=== PATIENT | female | born 1945 | race Caucasian/White ===

== ENCOUNTER 2016-11-25 09:03 | Emergency (ER) | payer MEDICARE, MEDICAID ==
[~2016-11-25] VITALS: Ht 152.4 cm; Wt 54.4 kg
[~2016-11-25 09:03] MED LIST: ALBU17AE23; ALBU8.5H2 IH; ALPR.25T PO; ALPR0.25 PO; ALPR0.254 PO; ATOR10TA66 PO; AZIT250T5 PO; BUPR150T6 PO; CEPH-507 PO; CEPH500C PO; CIPR-225 PO; CLIN150C17 PO; CLOP75TA28 PO; DCS100C PO; DOXY100C2 PO; FENO134C2 PO; FLC100T1 PO; GBPN300C PO; GLIM4TAB PO; GLIP10TA13 PO; HUM100VI; HYDR12.56 PO; HYDR1TAB PO; INSASP10V SQ; INSU100I14 SQ; INSU100I16 SQ; INSU100V13; INSU100V3 IJ; LEVO500T69 PO; LEVO750T24 PO; LISI-556 PO; LISI10TA PO; LISI5TAB PO; LOPE-134 PO; MELO7.5T PO; METF500T8 PO; METR500T PO; MULT-1029 PO; MULT-608 PO; NAPR220C11 PO; NF-ESOM40C PO; NITR-65 PO; OMEP20CA12 PO; OXYC1TAB87 PO; PNT40TEC PO; PROM25SU10 PR; RANI150T90 PO; RANI25TA PO; RNT150T PO; RT-ALBUINH IH; SIMV20TA3 PO; TIOT18CA IH; TRAM50TA2 PO; TRM50T PO; VANCOMYCIN IV; VARE1TAB19 PO; [UNRECOGNIZED DRUG - CODE] IV; [UNRECOGNIZED DRUG - OTHER]; novalog SC
[2016-11-25 09:31] LABS: BASOPHILS # (AUTO) 0.1 10^3/uL (0.0-0.1); BASOPHILS % (AUTO) 1 % (0-10); EOSINOPHILS # (AUTO) 0.4 10^3/uL (0.0-0.3); EOSINOPHILS % (AUTO) 3 % (0-10); LYMPHOCYTES # (AUTO) 4.7 X 10^3 (1.0-4.0); LYMPHOCYTES % (AUTO) 36 % (12-44); MEAN CORPUSCULAR HEMOGLOBIN 31 PG (25-34); MEAN CORPUSCULAR HGB CONC 35 G/DL (32-36); MEAN CORPUSCULAR VOLUME 90 FL (80-99); MEAN PLATELET VOLUME 10.6 FL (7.4-10.4); MONOCYTES # (AUTO) 0.9 X 10^3 (0.0-1.0); MONOCYTES % (AUTO) 7 % (0-12); NEUTROPHILS # (AUTO) 6.9 X 10^3 (1.8-7.8); NEUTROPHILS % (AUTO) 53 % (42-75); PLATELET COUNT 188 10^3/uL (130-400); RED BLOOD COUNT 4.56 10^6/uL (4.35-5.85); RED CELL DISTRIBUTION WIDTH 14.3 % (10.0-14.5); WHITE BLOOD COUNT 12.9 10^3/uL (4.3-11.0)
[2016-11-25 09:41] LABS: BILIRUBIN,URINE NEGATIVE (NEGATIVE); KETONES,URINE 1+ (NEGATIVE); LEUKOCYTE ESTERASE ,URINE NEGATIVE (NEGATIVE); NITRITE,URINE NEGATIVE (NEGATIVE); PH,URINE 6 (5-9); PROTEIN,URINE 3+ (NEGATIVE); UROBILINOGEN,URINE NORMAL (NORMAL)
[2016-11-25 09:42] LABS: ALANINE AMINOTRANSFERASE 17 U/L (0-55); ALBUMIN 3.7 GM/DL (3.2-4.5); ANION GAP 10 MMOL/L (5-14); ASPARTATE AMINO TRANSFERASE 19 U/L (5-34); BILIRUBIN,TOTAL 0.3 MG/DL (0.1-1.0); BLOOD UREA NITROGEN 14 MG/DL (7-18); BUN/CREATININE RATIO 17; CALCIUM 9.6 MG/DL (8.5-10.1); CARBON DIOXIDE 23 MMOL/L (21-32); CHLORIDE 105 MMOL/L (98-107); CREATININE SERUM 0.81 MG/DL (0.60-1.30); GFR ESTIMATED > 60; GLUCOSE 279 MG/DL (70-105); POTASSIUM 3.3 MMOL/L (3.6-5.0); SODIUM 138 MMOL/L (135-145); TOTAL PROTEIN 6.9 GM/DL (6.4-8.2)
--- NOTE | 2016-11-25 10:37 | ED Abdominal Pain ---
General Chief Complaint: Abdominal/GI Problems Stated Complaint: LOW BLOOD SUGAR Nursing Triage Note: Pt to ED room 9 via [facility]. EMS reports being called to pt's home for pt lethargic and c/o abd pain and vomiting. Pt's family reports they thought pt's blood sugar may have been low so they gave pt sugar tablet. FSBS for EMS was 244. Pt reports midline abd pain and vomiting that started approx 1 hour ago. Sepsis Screen: No Definite Risk Source of Information: Patient Exam Limitations: No Limitations History of Present Illness Time Seen By Provider: 10:37 Initial Comments To ER per EMS from home with reports of midline abdominal pain, vomiting, diarrhea. This began this morning upon awakening. No fevers or chills and at this time she feels back to normal. She has not eaten anything unusual lately. Timing/Duration: 4-6 Hours Severity/Quality: Moderate Radiation: No Radiation Activities at Onset: None Associated Symptoms: Nausea/Vomiting Allergies and Home Medications Allergies Coded Allergies: Iodinated Contrast- Oral and IV Dye (Verified Allergy, Intermediate, SWELLING HANDS AND FEET, 01/06/16) Penicillins (Verified Allergy, Mild, 01/06/16) codeine (Verified Allergy, Mild, 01/06/16) ibuprofen (Verified Allergy, Mild, 01/06/16) propoxyphene (Verified Allergy, Mild, 01/06/16) Sulfa (Sulfonamide Antibiotics) (Unverified Allergy, Unknown, 11/25/16) hydrocodone (Verified Adverse Reaction, Intermediate, NAUSEA, 01/06/16) per pt Home Medications No Active Prescriptions or Reported Meds Review of Systems Constitutional: see HPI EENTM: No Symptoms Reported Respiratory: No Symptoms Reported Cardiovascular: No Symptoms Reported Gastrointestinal: See HPI, Abdominal Pain, Diarrhea, Nausea, Other Genitourinary: No Symptoms Reported Skin: no symptoms reported Psychiatric/Neurological: No Symptoms Reported Endocrine: No Symptoms Reported Hematologic/Lymphatic: No Symptoms Reported Past Gqeridl-Waccss-Jiubtg Hx Patient Social History Alcohol Use: Denies Use Recreational Drug Use: No Smoking Status: Current Someday Smoker Type Used: Cigarettes 2nd Hand Smoke Exposure: No Recent Foreign Travel: No Contact w/Someone Who Travel: No Recent Infectious Disease Expo: No Recent Hopitalizations: No Immunizations Up To Date Tetanus Booster (TDap): Less than 5yrs PED Vaccines UTD: No Date of Pneumonia Vaccine: Jan 10, 2016 Date of Influenza Vaccine: Jan 10, 2016 Seasonal Allergies Seasonal Allergies: Yes Surgeries HX Surgeries: Yes (LEFT BKA, RIGHT FOOT PARTIAL AMPUTATION) Surgeries: Amputation, Orthopedic Respiratory Hx Respiratory Disorders: Yes Respiratory Disorders: Asthma Cardiovascular Hx Cardiac Disorders: Yes Cardiac Disorders: High Cholesterol, Hypertension, Peripheral Vascular Neurological Hx Neurological Disorders: Yes Neurological Disorders: Neuropathy Reproductive System Hx Reproductive Disorders: No Sexually Transmitted Disease: No HIV/AIDS: No 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 Genitourinary Hx Genitourinary Disorders: Yes Genitourinary Disorders: Kidney Stones, UTI-Chronic Gastrointestinal Hx Gastrointestinal Disorders: Yes Gastrointestinal Disorders: Gastroesophageal Reflux, Pancreatitis Musculoskeletal Hx Musculoskeletal Disorders: Yes Musculoskeletal Disorders: Amputee, Osteoporosis, Arthritis Endocrine Hx Endocrine Disorders: Yes (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 Physical Exam Vital Signs VS - Last 72 Hours, by Label 11/25/16 11/25/16 09:05 09:25 Temp 94.7 Pulse 78 Resp 18 B/P (MAP) 149/58 Pulse Ox 99 85 O2 Delivery Room Air Nasal Cannula O2 Flow Rate 2.00 Capillary Refill : Less Than 3 Seconds General Appearance: WD/WN, no apparent distress HEENT: PERRL/EOMI, normal ENT inspection Neck: non-tender, full range of motion Respiratory: normal breath sounds, no respiratory distress, no accessory muscle use Cardiovascular: regular rate, rhythm, no murmur Gastrointestinal: normal bowel sounds, non tender, soft Extremities: normal range of motion, non-tender Neurologic/Psychiatric: alert, normal mood/affect, oriented x 3 Skin: normal color Progress/Results/Core Measures Results/Orders Lab Results Laboratory Tests Test 11/25/16 09:04 11/25/16 09:12 11/25/16 09:32 Range/Units White Blood Count 12.9 H 4.3-11.0 10^3/uL Red Blood Count 4.56 4.35-5.85 10^6/uL Hemoglobin 14.1 11.5-16.0 G/DL Hematocrit 41 35-52 % Mean Corpuscular Volume 90 80-99 FL Mean Corpuscular Hemoglobin 31 25-34 PG Mean Corpuscular Hemoglobin Concent 35 32-36 G/DL Red Cell Distribution Width 14.3 10.0-14.5 % Platelet Count 188 130-400 10^3/uL Mean Platelet Volume 10.6 H 7.4-10.4 FL Neutrophils (%) (Auto) 53 42-75 % Lymphocytes (%) (Auto) 36 12-44 % Monocytes (%) (Auto) 7 0-12 % Eosinophils (%) (Auto) 3 0-10 % Basophils (%) (Auto) 1 0-10 % Neutrophils # (Auto) 6.9 1.8-7.8 X 10^3 Lymphocytes # (Auto) 4.7 H 1.0-4.0 X 10^3 Monocytes # (Auto) 0.9 0.0-1.0 X 10^3 Eosinophils # (Auto) 0.4 H 0.0-0.3 10^3/uL Basophils # (Auto) 0.1 0.0-0.1 10^3/uL Sodium Level 138 135-145 MMOL/L Potassium Level 3.3 L 3.6-5.0 MMOL/L Chloride Level 105 98-107 MMOL/L Carbon Dioxide Level 23 21-32 MMOL/L Anion Gap 10 5-14 MMOL/L Blood Urea Nitrogen 14 7-18 MG/DL Creatinine 0.81 0.60-1.30 MG/DL Estimat Glomerular Filtration Rate > 60 BUN/Creatinine Ratio 17 Glucose Level 279 H 70-105 MG/DL Calcium Level 9.6 8.5-10.1 MG/DL Total Bilirubin 0.3 0.1-1.0 MG/DL Aspartate Amino Transf (AST/SGOT) 19 5-34 U/L Alanine Aminotransferase (ALT/SGPT) 17 0-55 U/L Alkaline Phosphatase 89 40-136 U/L Total Protein 6.9 6.4-8.2 GM/DL Albumin 3.7 3.2-4.5 GM/DL Glucometer 293 H 70-110 MG/DL Urine Color YELLOW Urine Clarity SLIGHTLY CLOUDY Urine pH 6 5-9 Urine Specific [place] 1.020 1.016-1.022 Urine Protein 3+ H NEGATIVE Urine Glucose (UA) 4+ H NEGATIVE Urine Ketones 1+ H NEGATIVE Urine Nitrite NEGATIVE NEGATIVE Urine Bilirubin NEGATIVE NEGATIVE Urine Urobilinogen NORMAL NORMAL MG/DL Urine Leukocyte Esterase NEGATIVE NEGATIVE Urine RBC (Auto) 1+ H NEGATIVE Urine RBC 0-2 /HPF Urine WBC NONE /HPF Urine Squamous Epithelial Cells NONE /HPF Urine Crystals NONE /LPF Urine Bacteria NEGATIVE /HPF Urine Casts PRESENT /LPF Urine Hyaline Casts 2-5 H /LPF Urine Mucus NEGATIVE /LPF Urine Culture Indicated NO My Orders Orders - TANIYA MENESES [employer] Ct Abdomen/Pelvis W (11/25/16 10:34) Ct Abdomen/Pelvis Wo (11/25/16 10:37) Vital Signs/I&O Vital Sign - Last 12Hours 11/25/16 11/25/16 09:05 09:25 Temp 94.7 Pulse 78 Resp 18 B/P (MAP) 149/58 Pulse Ox 99 85 O2 Delivery Room Air Nasal Cannula O2 Flow Rate 2.00 Blood Pressure Mean: 88 Point of Care Testing Finger Stick Blood Glucose: 293 Departure Impression Impression: Primary Impression: Nausea vomiting and diarrhea Disposition: HOME, SELF-CARE Condition: Stable Departure-Patient Inst. Decision time for Depature: 10:39 Referrals: MIKALA DELVALLE DO (PCP/Family) Primary Care Physician Patient Instructions: Acute Abdomen (Belly Pain), Adult (DC) Add. Discharge Instructions: 1. Return to ER for any concerns 2. See your doctor on Tuesday 3. All discharge instructions reviewed with patient and/or family. Voiced understanding. Scripts Ondansetron (Zofran Odt) 8 Mg Tab.rapdis 8 MG PO Q6H Y for NAUSEA/VOMITING-1ST LINE, #10 TAB Prov: TANIYA MENESES APRN 11/25/16 TANIYA MENESES APRN Nov 25, 2016 10:37
[2016-11-25] MEDS ORDERED: ONDA8TAB9 PO (10:40)
--- NOTE | 2016-11-25 11:37 | Diagnostic Imaging Report ---
PROCEDURE: CT abdomen and pelvis without contrast. TECHNIQUE: Multiple contiguous axial images were obtained through the abdomen and pelvis without the use of intravenous contrast. INDICATION: Weakness and diarrhea. Note is made of probable calcified granuloma in the visualized right lung base. There is also dense calcification noted in the left breast. Unenhanced images of the liver and spleen reveal no focal lesion. Gallbladder is not visualized and may be surgically absent. There is no evidence of pancreatic or adrenal gland lesion. Evaluation kidneys limited without intravenous contrast there is no evidence of hydronephrosis, mass or calculus. There is no free fluid seen in the abdomen or pelvis. There is no localized bowel dilatation. No pathologic adenopathy is seen. Evaluation of the bladder is also limited without intravenous contrast however there is no evidence of filling defect or focal mural thickening. IMPRESSION: No CT evidence of acute abnormality in the abdomen or pelvis. Dictated by: Dictated on workstation # [id number]
[2016-11-25 13:07] VITALS: BP 148/66
== END 2016-11-25 13:07 | disposition home or self-care (01) ==
LOC: EDUNIT# 09:03 → ER 09:05
DX: R11.2 Nausea with vomiting, unspecified (principal); R19.7 Diarrhea, unspecified; E11.9 Type 2 diabetes mellitus without complications; I10 Essential (primary) hypertension; E78.00 Pure hypercholesterolemia, unspecified; K21.9 Gastro-esophageal reflux disease without esophagitis; F17.210 Nicotine dependence, cigarettes, uncomplicated; Z89.512 Acquired absence of left leg below knee; Z89.431 Acquired absence of right foot
CPT/HCPCS: 36415; 51701; 74176; 80053; 81000; 82962; 85025

== ENCOUNTER 2017-10-07 09:32 | Inpatient (IN) | payer MEDICARE, MEDICAID ==
[2017-10-07] VITALS (15 sets, daily range): BP systolic 108–181; BP diastolic 52–82
[~2017-10-07] VITALS: Ht 121.9 cm; Wt 56.3 kg
[~2017-10-07 09:32] MED LIST changes: +AZIT250T12 PO; -AZIT250T5 PO; +BETH25TA PO; +BUSP10TA95 PO; +CIPR-226 PO; +ERGO50006 PO; +INSU100V5 SQ; +NICO-587 TD; +ONDA4TAB11 PO; +ONDA8TAB9 PO; +OXYC-464 PO; +PANT40TA3 PO; +TAMS0.4C98 PO
[2017-10-07 09:59] LABS: BASOPHILS % (AUTO) 0 % (0-10); EOSINOPHILS % (AUTO) 0 % (0-10); HEMATOCRIT 35 % (35-52); HEMOGLOBIN 11.2 G/DL (11.5-16.0); LYMPHOCYTES # (AUTO) 1.4 X 10^3 (1.0-4.0); LYMPHOCYTES % (AUTO) 14 % (12-44); MEAN CORPUSCULAR HEMOGLOBIN 27 PG (25-34); MEAN CORPUSCULAR HGB CONC 32 G/DL (32-36); MEAN CORPUSCULAR VOLUME 83 FL (80-99); MEAN PLATELET VOLUME 9.4 FL (7.4-10.4); MONOCYTES # (AUTO) 0.3 X 10^3 (0.0-1.0); MONOCYTES % (AUTO) 3 % (0-12); NEUTROPHILS % (AUTO) 82 % (42-75); PLATELET COUNT 237 10^3/uL (130-400); RED CELL DISTRIBUTION WIDTH 15.2 % (10.0-14.5); WHITE BLOOD COUNT 9.7 10^3/uL (4.3-11.0)
--- NOTE | 2017-10-07 10:02 | ED Neurological Problem ---
General Chief Complaint: Neuro-Stroke Like Symptoms Stated Complaint: AMS Source: patient, EMS, custodial records Exam Limitations: clinical condition History of Present Illness Date Seen by Provider: Oct 07, 2017 Time Seen by Provider: 09:38 Initial Comments Here by EMS with report of altered mental status this morning. Last known well time was 9 p.m. last night. Patient is a known diabetic of blood sugars are about 200 per EMS and custodial records. Patient is not answering questions. Apparently, last night she started acting different. She is normally very independent. She had complained of left arm pain at that time. This morning she is not answering questions and not acting herself. EMS was called after consultation with her primary doctor, Dr. Delvalle. Arrives to the emergency department and altered mental status and not answering questions. She does moan when touching her chest. She is breathing on her own. Severity: severe Associated Symptoms: No fever/chills, No nausea/vomiting Allergies and Home Medications Allergies Coded Allergies: Iodinated Contrast- Oral and IV Dye (Verified Allergy, Intermediate, SWELLING HANDS AND FEET, 01/06/16) Penicillins (Verified Allergy, Mild, 01/06/16) codeine (Verified Allergy, Mild, Pt has taken Percocet w/o issue, 08/09/17) ibuprofen (Verified Allergy, Mild, 01/06/16) propoxyphene (Verified Allergy, Mild, 01/06/16) Sulfa (Sulfonamide Antibiotics) (Unverified Allergy, Unknown, 11/25/16) hydrocodone (Verified Adverse Reaction, Intermediate, NAUSEA, 01/06/16) per pt Home Medications Bethanechol Chloride 25 Mg Tablet, 50 MG PO ACHS Prescribed by: MYKEL ELIZABETH on 08/18/17 144 Buspirone HCl 10 Mg Tablet, 10 MG PO BID PRN for anxiety Prescribed by: MYKEL ELIZABETH on 08/18/17 144 Ciprofloxacin HCl 250 Mg Tablet, 250 MG PO BID Prescribed by: MYKEL ELIZABETH on 08/19/17 0828 Ergocalciferol (Vitamin D2) 50,000 Unit Capsule, 50,000 UNITS PO Th@0700 Prescribed by: MYKEL ELIZABETH on 08/18/17 144 Insulin Determir 1,000 Units/10 Ml Soln, 12 UNIT SQ BID Prescribed by: MYKEL ELIZABETH on 08/18/17 1444 Nicotine 1 Each Patch.td24, 14 MG TD DAILY@0900 Prescribed by: MYKEL ELIZABETH on 08/18/17 144 Ondansetron 4 Mg Tab.rapdis, 4 MG PO Q6H PRN for NAUSEA/VOMITING-1ST LINE Prescribed by: MYKEL ELIZABETH on 08/18/17 144 Oxycodone HCl/Acetaminophen 1 Each Tablet, 2 EACH PO Q4H PRN for PAIN-MODERATE Prescribed by: MYKEL ELIZABETH on 08/18/17 144 Pantoprazole Sodium 40 Mg Tablet.dr, 40 MG PO DAILY@0700 Prescribed by: MYKEL ELIZABETH on 08/18/17 144 Tamsulosin HCl 0.4 Mg Cap, 0.4 MG PO DAILY@1800 Prescribed by: MKYEL ELIZABETH on 08/18/17 144 Patient Home Medication List Home Medication List Reviewed: Yes Review of Systems Constitutional: see HPI; No chills, No fever Unable to determine due to altered mental status. Past Nzufpok-Bpayye-Ccuwws Hx Past Med/Social Hx: Reviewed Nursing Past Med/Soc Hx Patient Social History Type Used: Cigarettes 2nd Hand Smoke Exposure: No Recent Hopitalizations: Yes Immunizations Up To Date Tetanus Booster (TDap): Less than 5yrs PED Vaccines UTD: No Date of Pneumonia Vaccine: Jan 10, 2016 Date of Influenza Vaccine: Jan 10, 2016 Seasonal Allergies Seasonal Allergies: Yes Past Medical History Surgeries: Yes (LEFT BKA, RIGHT FOOT PARTIAL AMPUTATION, SEWED RIGHT INDEX FINGER TEENAG) Amputation, Orthopedic Respiratory: Yes Asthma, COPD Currently Using CPAP: No Currently Using BIPAP: No Cardiac: Yes High Cholesterol, Hypertension, Peripheral Vascular Neurological: Yes Neuropathy Reproductive Disorders: No 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 No Pertinent Family Hx All history per records as patient has altered mental status. Physical Exam Vital Signs Vital Signs - First Documented 10/07/17 09:35 Temp 98.0 Pulse 98 Resp 18 B/P (MAP) 188/87 (120) Pulse Ox 97 O2 Delivery Room Air Capillary Refill : General Appearance: no apparent distress HEENT: PERRL/EOMI, pharynx normal Neck: non-tender, supple Respiratory: lungs clear, normal breath sounds Cardiovascular: no murmur, tachycardia Gastrointestinal: non tender, soft Back: normal inspection, no CVA tenderness, no vertebral tenderness Extremities: non-tender, other (bilateral BKA.) Neurologic/Psychiatric: alert, oriented x 3 Crainal Nerves: other (patient moans when palpating the chest but otherwise does not verbalize any response. Does not follow commands.) Skin: normal color, warm/dry Focused Exam Lactate Level 10/07/17 09:42: Lactic Acid Level 0.74 Lactic Acid Level Laboratory Tests Test 10/07/17 09:42 Lactic Acid Level 0.74 MMOL/L (0.50-2.00) Progress/Results/Core Measures Results/Orders Lab Results Laboratory Tests Test 10/07/17 09:42 10/07/17 10:10 10/07/17 11:15 10/07/17 11:19 Range/Units White Blood Count 9.7 4.3-11.0 10^3/uL Red Blood Count 4.20 L 4.35-5.85 10^6/uL Hemoglobin 11.2 L 11.5-16.0 G/DL Hematocrit 35 35-52 % Mean Corpuscular Volume 83 80-99 FL Mean Corpuscular Hemoglobin 27 25-34 PG Mean Corpuscular Hemoglobin Concent 32 32-36 G/DL Red Cell Distribution Width 15.2 H 10.0-14.5 % Platelet Count 237 130-400 10^3/uL Mean Platelet Volume 9.4 7.4-10.4 FL Neutrophils (%) (Auto) 82 H 42-75 % Lymphocytes (%) (Auto) 14 12-44 % Monocytes (%) (Auto) 3 0-12 % Eosinophils (%) (Auto) 0 0-10 % Basophils (%) (Auto) 0 0-10 % Neutrophils # (Auto) 8.0 H 1.8-7.8 X 10^3 Lymphocytes # (Auto) 1.4 1.0-4.0 X 10^3 Monocytes # (Auto) 0.3 0.0-1.0 X 10^3 Eosinophils # (Auto) 0.0 0.0-0.3 10^3/uL Basophils # (Auto) 0.0 0.0-0.1 10^3/uL Prothrombin Time 13.8 12.2-14.7 SEC INR Comment 1.1 0.8-1.4 Activated Partial Thromboplast Time 26 24-35 SEC D-Dimer 3.98 H 0.00-0.49 UG/ML Sodium Level 139 135-145 MMOL/L Potassium Level 3.6 3.6-5.0 MMOL/L Chloride Level 103 98-107 MMOL/L Carbon Dioxide Level 26 21-32 MMOL/L Anion Gap 10 5-14 MMOL/L Blood Urea Nitrogen 9 7-18 MG/DL Creatinine 0.77 0.60-1.30 MG/DL Estimat Glomerular Filtration Rate > 60 BUN/Creatinine Ratio 12 Glucose Level 191 H 70-105 MG/DL Lactic Acid Level 0.74 0.50-2.00 MMOL/L Calcium Level 10.2 H 8.5-10.1 MG/DL Total Bilirubin 0.3 0.1-1.0 MG/DL Aspartate Amino Transf (AST/SGOT) 23 5-34 U/L Alanine Aminotransferase (ALT/SGPT) 11 0-55 U/L Alkaline Phosphatase 122 40-136 U/L Troponin I < 0.30 < 0.30 <0.30 NG/ML Total Protein 7.7 6.4-8.2 GM/DL Albumin 3.2 3.2-4.5 GM/DL Urine Color YELLOW Urine Clarity CLEAR Urine pH 7 5-9 Urine Specific [place] 1.010 L 1.016-1.022 Urine Protein 4+ NEGATIVE Urine Glucose (UA) NEGATIVE NEGATIVE Urine Ketones NEGATIVE NEGATIVE Urine Nitrite NEGATIVE NEGATIVE Urine Bilirubin NEGATIVE NEGATIVE Urine Urobilinogen NORMAL NORMAL MG/DL Urine Leukocyte Esterase 3+ H NEGATIVE Urine RBC (Auto) 3+ H NEGATIVE Urine RBC 2-5 H /HPF Urine WBC 50-100 H /HPF Urine Crystals NONE /LPF Urine Bacteria FEW H /HPF Urine Casts NONE /LPF Urine Mucus NEGATIVE /LPF Urine Culture Indicated YES Blood Gas Puncture Site R BRACHIAL Blood Gas Patient Temperature 98.0 Arterial Blood pH 7.46 H 7.37-7.43 Arterial Blood Partial Pressure CO2 39 35-45 MMHG Arterial Blood Partial Pressure O2 74 L 79-93 MMHG Arterial Blood HCO3 27 23-27 MMOL/L Arterial Blood Total CO2 28.7 21.0-31.0 MMOL/L Arterial Blood Oxygen Saturation 97 94-100 % Arterial Blood Base Excess 3.6 H -2.5-2.5 MMOL/L Paul Test YES-POS Blood Gas Ventilator Setting NO Blood Gas Inspired Oxygen ROOM AIR Ammonia 28 11-32 UMOL/L My Orders Orders - ADEEL MARIN MD Cbc With Automated Diff (10/07/17 09:46) Protime With Inr (10/07/17:46) Partial Thromboplastin Time (10/07/17:46) Comprehensive Metabolic Panel (10/07/17:46) Fibrin Degradation Products (10/07/17:46) Troponin I (10/07/17:46) Ua Culture If Indicated (10/07/17 09:46) Chest 1 View, Ap/Pa Only (10/07/17 09:46) Catheter(Urinary) Insert & Ass 03,15 (10/07/17 09:46) Ekg Tracing (10/07/17 09:46) Nothing By Mouth (10/07/17 Lunch) Vital Signs Stroke Patient Q15M (10/07/17 09:46) Ct Head Wo-R/O Stroke (10/07/17 09:46) O2 (10/07/17 09:46) Intake & Output 06,14,22 (10/07/17 09:46) Monitor-Rhythm Ecg Trace Only (10/07/17 09:46) Dysphagia Screening Tool (10/07/17 09:46) Lipid Panel (10/08/17 06:00) Lactic Acid Analyzer (10/07/17 09:46) Blood Culture (10/07/17 09:46) Urine Culture (10/07/17 10:10) Arterial Blood Gas (10/07/17 11:15) Ammonia (10/07/17 11:05) Us Venous Lower Ext Cesar (10/07/17 11:05) Arterial Blood Draw (10/07/17 ) Troponin I (10/07/17 11:28) Lidocaine 1% Inj 20 Ml (Xylocaine 1% Inj (10/07/17 11:37) Midazolam Injection (Versed Injection) (10/07/17 11:37) Fentanyl Injection (Sublimaze Injection (10/07/17 11:37) Ns Iv 1000 Ml (Sodium Chloride 0.9%) (10/07/17 11:37) Heparin (Compliance And Control Analyst) (Heparin (Compliance And Control Analyst)) (10/07/17 11:37) Vital Signs/I&O 10/07/17 10/07/17 09:35 09:40 Temp 98.0 Pulse 98 Resp 18 B/P (MAP) 188/87 (120) Pulse Ox 97 98 O2 Delivery Room Air Room Air Progress Progress Note : Progress Note Patient seen and evaluated. IV, labs, EKG, chest x-ray, CT head, blood cultures and lactic acid ordered. Patient is complicated case with possibilities of multiple etiologies of her current presentation. We will evaluate for stroke and sepsis currently. Patient is not a TPA candidate as she has last known well time greater than 12 hours ago. Patient is not hypotensive and in fact is currently hypertensive. EKG was done and does have a question of acute NC. I did discuss the case with Dr. Mclaughlin at 1005. He believes this is likely subacute although we will evaluate troponin. Patient is not able to answer herself at this time. 1059: I did discuss the case with Dr. Alfred as patient remains complicated. We will check ammonia and ABG to evaluate further. We will order bilateral lower extremity ultrasound to see if potential blood clots in the legs. Patient has contrast allergy limiting use of CT angiogram. It appears that her previous reaction with swelling in her hands. This can be upset by pretreatment we will consider that if needed. 1124 : We have attempted to contact the family member for this patient who is not answering the phone and is hanging up on his. We have left voice messages to call back. I did discuss the case with Dr. Delvalle 1133. He actually saw the patient yesterday and states this is a dramatic change from previous. There is still concerns about subacute NC. Patient is a vasculopath and has history of diabetes and hypertension. She has not had cardiac workup here in the past and ultimately was decided that she would get emergent heart catheter as it does appear she is having some chest pain. Dr. Delvalle, Dr. Mclaughlin and I all agree. 1140: Patient to the Compliance And Control Analyst with Dr. Mclaughlin and staff. Patient did have significant output from her catheter greater than 700 mL. UA would indicate urinary tract infection. This can be further evaluated after the emergent heart catheter. Initial ECG Impression Date: Oct 07, 2017 Initial ECG Impression Time: 09:58 Initial ECG Rate: 90 Initial ECG Rhythm: Normal Sinus Initial ECG Comparisson: Changed Comment Sinus rhythm with ST elevation in the anterior leads and V1 through V4. No reciprocal changes. I did discuss this with Dr. Mclaughlin. Patient does have incomplete left bundle aleena block and that is from previous but this waveform appears to be a progression or worsening and there is possibility of subacute changes. Diagnostic Imaging Diagonstic Imaging: CT Plain Films/CT/US/NM/MRI: head Comments [facility] [place] [place] NAME: MARIA ESTHER JUNG [facility] REC#: [id number] PT STATUS: REG ER : 1945 PHYSICIAN: ADEEL MARIN MD ADMIT DATE: 10/07/17/ER Draft Date of Exam:10/07/17 CT HEAD WO-R/O STROKE EXAM: CT HEAD WO-R/O STROKE INDICATION: Stroke. Unresponsive. COMPARISON: None. FINDINGS: Moderate generalized cerebral and cerebellar parenchymal volume loss. Moderate leukoaraiosis. No CT evidence of a territorial infarction. No intracranial hemorrhage, mass effect, hydrocephalus or extra-axial fluid collections. Intracranial vascular calcifications. Moderate mucosal thickening in the partially visualized maxillary sinuses. Mastoids are clear. Osseous structures are intact. IMPRESSION: No acute intracranial CT findings. Dictated on workstation # [id number] Dict: 10/07/17 1036 Trans: 10/07/[address] [facility] [id number] Interpreted by: ANUJ FRANCIS MD Electronically signed by: Diagonstic Imaging: Xray Plain Films/CT/US/NM/MRI: chest Comments [facility] [place], [place] NAME: MARIA ESTHER JUNG [facility] REC#: [id number] PT STATUS: REG ER : 1945 PHYSICIAN: ADEEL MARIN MD ADMIT DATE: 10/07/17/ER Draft Date of Exam:10/07/17 CHEST 1 VIEW, AP/PA ONLY INDICATION: Altered mental status. Unresponsive. Unable to follow commands or answer questions.. TECHNIQUE: Single view chest 10:28 AM. CORRELATION STUDY: 08/02/2017 FINDINGS: Heart size, mediastinum and vasculature with mild vascular congestion, patchy density suggested about the left mid lung field. Slight nodularity in bilateral suprahilar regions and mildly prominent interstitial markings. IMPRESSION: 1. Slight vascular prominence generally stable from prior study. 2. Questionable density left mid lung field somewhat obscured by overlying monitor lead. This could reflect a small area of infiltrate. Developing nodule is not excluded. Additional slight nodularity of the suprahilar region. Followup imaging is recommended for reassessment. Dictated on workstation # [id number] Dict: 10/07/17 1058 Trans: 10/07/17 1105 [facility] [place] [id number] Interpreted by: MARIA LUISA MONGE DO Electronically signed by: Departure Communication (Admissions) Time/Spoke to Admitting Phy: 10:05 Time/Spoke to Consulting Phy: 10:59 Impression Primary Impression: Altered mental status Qualified Codes: R41.82 - Altered mental status, unspecified Additional Impressions: Myocardial infarction, anterior wall Urinary tract infection Qualified Codes: N30.00 - Acute cystitis without hematuria Disposition: ADMITTED INPATIENT Condition: Critical Admissions Decision to Admit Reason: Admit from ER (General) Decision to Admit/Date: Oct 07, 2017 Time/Decision to Admit Time: 11:40 Departure-Patient Inst. Referrals: MIKALA DELVALLE DO (PCP/Family) Primary Care Physician ADEEL MARIN MD Oct 07, 2017 10:02
[2017-10-07 10:17] LABS: ALANINE AMINOTRANSFERASE 11 U/L (0-55); ALBUMIN 3.2 GM/DL (3.2-4.5); ALKALINE PHOSPHATASE 122 U/L (40-136); BILIRUBIN,TOTAL 0.3 MG/DL (0.1-1.0); BUN/CREATININE RATIO 12; CALCIUM 10.2 MG/DL (8.5-10.1); CARBON DIOXIDE 26 MMOL/L (21-32); CHLORIDE 103 MMOL/L (98-107); CREATININE SERUM 0.77 MG/DL (0.60-1.30); GFR ESTIMATED > 60; GLUCOSE 191 MG/DL (70-105); POTASSIUM 3.6 MMOL/L (3.6-5.0); SODIUM 139 MMOL/L (135-145); TOTAL PROTEIN 7.7 GM/DL (6.4-8.2)
[2017-10-07 10:22] LABS: BILIRUBIN,URINE NEGATIVE (NEGATIVE); CLARITY,URINE CLEAR; COLOR,URINE YELLOW; GLUCOSE, URINE (UA) NEGATIVE (NEGATIVE); KETONES,URINE NEGATIVE (NEGATIVE); LEUKOCYTE ESTERASE ,URINE 3+ (NEGATIVE); NITRITE,URINE NEGATIVE (NEGATIVE); PH,URINE 7 (5-9); PROTEIN,URINE 4+ (NEGATIVE); UROBILINOGEN,URINE NORMAL (NORMAL)
[2017-10-07 10:36] LABS: BACTERIA,URINE FEW /HPF; WBC,URINE 50-100 /HPF
--- NOTE | 2017-10-07 10:40 | Diagnostic Imaging Report ---
EXAM: CT HEAD WO-R/O STROKE INDICATION: Stroke. Unresponsive. COMPARISON: None. FINDINGS: Moderate generalized cerebral and cerebellar parenchymal volume loss. Moderate leukoaraiosis. No CT evidence of a territorial infarction. No intracranial hemorrhage, mass effect, hydrocephalus or extra-axial fluid collections. Intracranial vascular calcifications. Moderate mucosal thickening in the partially visualized maxillary sinuses. Mastoids are clear. Osseous structures are intact. IMPRESSION: No acute intracranial CT findings. Dictated by: Dictated on workstation # [id number]
[2017-10-07 10:50] LABS: FIBRIN DEGRADATION PRODUCTS 3.98 UG/ML (0.00-0.49); INR 1.1 (0.8-1.4); PROTHROMBIN TIME PATIENT 13.8 SEC (12.2-14.7)
--- NOTE | 2017-10-07 11:06 | Diagnostic Imaging Report ---
INDICATION: Altered mental status. Unresponsive. Unable to follow commands or answer questions.. TECHNIQUE: Single view chest 10:28 AM. CORRELATION STUDY: 08/02/2017 FINDINGS: Heart size, mediastinum and vasculature with mild vascular congestion, patchy density suggested about the left mid lung field. Slight nodularity in bilateral suprahilar regions and mildly prominent interstitial markings. IMPRESSION: 1. Slight vascular prominence generally stable from prior study. 2. Questionable density left mid lung field somewhat obscured by overlying monitor lead. This could reflect a small area of infiltrate. Developing nodule is not excluded. Additional slight nodularity of the suprahilar region. Followup imaging is recommended for reassessment. Dictated by: Dictated on workstation # [id number]
[2017-10-07 11:24] LABS: ABG BASE EXCESS 3.6 MMOL/L (-2.5-2.5); ABG OXYGEN SATURATION 97 % (94-100); ABG PCO2 39 MMHG (35-45); ABG PH 7.46 (7.37-7.43); ABG PO2 74 MMHG (79-93); ABG TCO2 28.7 MMOL/L (21.0-31.0)
[2017-10-07 11:25] LABS: ALLENS TEST YES-POS; INSPIRED O2 ROOM AIR; VENTILATOR NO
[2017-10-07] MEDS ORDERED: NS IV 1000 ML 1,000 ML ONE (11:37)
[2017-10-07] MEDS ORDERED: fentaNYL INJECTION 100 MCG/2 ML AMP ONE (11:37)
[2017-10-07] MEDS ORDERED: MIDAZOLAM 5 MG/5 ML (VERSED) VIAL ONE (11:37)
[2017-10-07] MEDS ORDERED: LIDOCAINE 1% INJ 20 ML 20 ML VIAL ONE (11:37)
[2017-10-07] MEDS ORDERED: HEParin (CATH LAB) 2,000 ML IV ONE (11:37)
[2017-10-07] MEDS ORDERED: LIDOCAINE 4% INJ (XYLOCAINE) 5ML AMP INJ ONE (11:41)
[2017-10-07] MEDS ORDERED: LIDOCAINE PF 1% 2 ML AMP INJ ONE (11:41)
[2017-10-07] MEDS ORDERED: LIDOCAINE JELLY 2% (XYLOCAINE) 30 ML TUBE TOP ONE (11:41)
[2017-10-07] MEDS ORDERED: diphenhydrAMINE 50 MG/ML INJ (BENADRYL) ONE (11:50)
[2017-10-07] MEDS ORDERED: methylPREDNISolone 125 MG (Solu-MEDROL) VIAL ONE (11:50)
--- NOTE | 2017-10-07 11:52 | Consultation-Cardiology ---
HPI-Cardiology Cardiology Consultation Date of Consultation 10/07/17 Date of Admission Time Seen by Provider: 11:46 Indication: EKG changes, chest pain HPI With history of bilateral BKA, history of noncompliance with medication and diabetes. Brought to the emergency room for change in mental status, it was reported that she was functional yesterday, able to hold a conversation and support herself and perform her basic activity. Currently she is responsive by opening her eyes with slurred speech, disoriented, having some chest pain. I tried to reach her family without success. She was noted to have EKG changes which is new. Cardec enzymes were negative. Still having some chest discomfort and severely hypertensive. She is known to be noncompliant. I discussed with Dr. MARIN and Dr. Garnett her condition, apparently she has stopped talking to her daughter and her daughter is not answering the phone. She will need a heart catheterization, patient was cooperative yesterday. Currently unable to provide a full consent, consent was acquired by discussing the situation, she is having an emergent condition, we have 3 physicians agreed on the procedure and we will proceed. Home Medications & Allergies Allergies: Coded Allergies: Iodinated Contrast- Oral and IV Dye (Verified Allergy, Intermediate, SWELLING HANDS AND FEET, 01/06/16) Penicillins (Verified Allergy, Mild, 01/06/16) codeine (Verified Allergy, Mild, Pt has taken Percocet w/o issue, 08/09/17) ibuprofen (Verified Allergy, Mild, 01/06/16) propoxyphene (Verified Allergy, Mild, 01/06/16) Sulfa (Sulfonamide Antibiotics) (Unverified Allergy, Unknown, 11/25/16) hydrocodone (Verified Adverse Reaction, Intermediate, NAUSEA, 01/06/16) per pt Home Medication List Reviewed: Yes MCG-Pnkodi-Dbcamu Hx Patient Social History Marital Status: Alcohol Use: Denies Use Recreational Drug Use: No Smoking Status: Current Everyday Smoker Type Used: Cigarettes 2nd Hand Smoke Exposure: No Recent Foreign Travel: No Recent Infectious Disease Expo: No Recent Hopitalizations: Yes Immunizations Up To Date Tetanus Booster (TDap): Less than 5yrs Date of Pneumonia Vaccine: Jan 10, 2016 Date of Influenza Vaccine: Jan 10, 2016 Past Medical History Discussed below Family Medical History Significant Family History: No Pertinent Family Hx Family Medical Hx Unable to provide review of systems or family history Family History: Patient reports no known family medical history. Constitutional: other (Unable to provide review of systems) Cardiovascular: chest pain Reviewed Test Results Reviewed Test Results Lab Laboratory Tests Test 10/07/17 09:42 10/07/17 10:10 10/07/17 11:15 10/07/17 11:19 Range/Units White Blood Count 9.7 4.3-11.0 10^3/uL Red Blood Count 4.20 L 4.35-5.85 10^6/uL Hemoglobin 11.2 L 11.5-16.0 G/DL Hematocrit 35 35-52 % Mean Corpuscular Volume 83 80-99 FL Mean Corpuscular Hemoglobin 27 25-34 PG Mean Corpuscular Hemoglobin Concent 32 32-36 G/DL Red Cell Distribution Width 15.2 H 10.0-14.5 % Platelet Count 237 130-400 10^3/uL Mean Platelet Volume 9.4 7.4-10.4 FL Neutrophils (%) (Auto) 82 H 42-75 % Lymphocytes (%) (Auto) 14 12-44 % Monocytes (%) (Auto) 3 0-12 % Eosinophils (%) (Auto) 0 0-10 % Basophils (%) (Auto) 0 0-10 % Neutrophils # (Auto) 8.0 H 1.8-7.8 X 10^3 Lymphocytes # (Auto) 1.4 1.0-4.0 X 10^3 Monocytes # (Auto) 0.3 0.0-1.0 X 10^3 Eosinophils # (Auto) 0.0 0.0-0.3 10^3/uL Basophils # (Auto) 0.0 0.0-0.1 10^3/uL Prothrombin Time 13.8 12.2-14.7 SEC INR Comment 1.1 0.8-1.4 Activated Partial Thromboplast Time 26 24-35 SEC D-Dimer 3.98 H 0.00-0.49 UG/ML Sodium Level 139 135-145 MMOL/L Potassium Level 3.6 3.6-5.0 MMOL/L Chloride Level 103 98-107 MMOL/L Carbon Dioxide Level 26 21-32 MMOL/L Anion Gap 10 5-14 MMOL/L Blood Urea Nitrogen 9 7-18 MG/DL Creatinine 0.77 0.60-1.30 MG/DL Estimat Glomerular Filtration Rate > 60 BUN/Creatinine Ratio 12 Glucose Level 191 H 70-105 MG/DL Lactic Acid Level 0.74 0.50-2.00 MMOL/L Calcium Level 10.2 H 8.5-10.1 MG/DL Total Bilirubin 0.3 0.1-1.0 MG/DL Aspartate Amino Transf (AST/SGOT) 23 5-34 U/L Alanine Aminotransferase (ALT/SGPT) 11 0-55 U/L Alkaline Phosphatase 122 40-136 U/L Troponin I < 0.30 <0.30 NG/ML Total Protein 7.7 6.4-8.2 GM/DL Albumin 3.2 3.2-4.5 GM/DL Urine Color YELLOW Urine Clarity CLEAR Urine pH 7 5-9 Urine Specific [place] 1.010 L 1.016-1.022 Urine Protein 4+ NEGATIVE Urine Glucose (UA) NEGATIVE NEGATIVE Urine Ketones NEGATIVE NEGATIVE Urine Nitrite NEGATIVE NEGATIVE Urine Bilirubin NEGATIVE NEGATIVE Urine Urobilinogen NORMAL NORMAL MG/DL Urine Leukocyte Esterase 3+ H NEGATIVE Urine RBC (Auto) 3+ H NEGATIVE Urine RBC 2-5 H /HPF Urine WBC 50-100 H /HPF Urine Crystals NONE /LPF Urine Bacteria FEW H /HPF Urine Casts NONE /LPF Urine Mucus NEGATIVE /LPF Urine Culture Indicated YES Blood Gas Puncture Site R BRACHIAL Blood Gas Patient Temperature 98.0 Arterial Blood pH 7.46 H 7.37-7.43 Arterial Blood Partial Pressure CO2 39 35-45 MMHG Arterial Blood Partial Pressure O2 74 L 79-93 MMHG Arterial Blood HCO3 27 23-27 MMOL/L Arterial Blood Total CO2 28.7 21.0-31.0 MMOL/L Arterial Blood Oxygen Saturation 97 94-100 % Arterial Blood Base Excess 3.6 H -2.5-2.5 MMOL/L Paul Test YES-POS Blood Gas Ventilator Setting NO Blood Gas Inspired Oxygen ROOM AIR Ammonia 28 11-32 UMOL/L Physical Exam Vital Signs Vital Signs - First Documented 10/07/17 09:35 Temp 98.0 Pulse 98 Resp 18 B/P (MAP) 188/87 (120) Pulse Ox 97 O2 Delivery Room Air Capillary Refill : Less Than 3 Seconds General Appearance: Severe Distress, Thin HEENT: PERRL/EOMI, Normal ENT Inspection Neck: Normal Inspection, Supple Respiratory: Crackles, Decreased Breath Sounds Cardiovascular: Regular Rate, Rhythm, No JVD, Systolic Murmur, Gallop/S3 Gastrointestinal: No Organomegaly, No Pulsatile Mass Extremity: Normal Inspection, Non Tender, Other (Bilateral BKA) Neurologic/Psychiatric: Other (Lethargic, disoriented, moving extremities) A/P-Cardiology Admission Diagnosis Acute coronary syndrome Change in mental status Malignant hypertension BKA Assessment/Plan Chest pain, EKG changes, suggestive of acute coronary syndrome, patient has significant change in mental status, planning to proceed with emergent cardiac catheterization, discussion was made between myself and Dr. MARIN in Dr. Garnett. Patient is unable to provide a consent, consent was obtained emergently. Malignant hypertension, I will monitor and adjust medication Change in mental status, electrolytes are normal, hypoxemia was noted, elevated d-dimer. We will be on anticoagulation after the cardiac catheterization CT of the head was negative. Bilateral BKA, last surgery was done last month. Diabetes mellitus. Followed and managed by primary care physician History of noncompliance with medications. Clinical Quality Measures Stroke: Date of last known well: Oct 06, 2017 MEGAN KENDRICK MD Oct 07, 2017 11:52
--- NOTE | 2017-10-07 11:53 | Cardiac Procedure Note-CS/ASA ---
Pre-Procedure Note Pre-Op Procedure Note H&P Reviewed The H&P was reviewed, patient examined and no changes noted. Date H&P Reviewed: Oct 07, 2017 Time H&P Reviewed: 11:52 Conscious Sedation Pre-Proced Time Reviewed: 11:52 ASA Class: 5 Airway Mallampati Classification: (torres martinez appropriate class) I. II. III, IV Lungs Heart ASA score ASA 1: a normal healthy patient ASA 2: a patient with a mild systemic disease (mid diabetes, controlled hypertension, obesity ASA 3: a patient with a severe systemic disease that limits activity (angina , COPD, prior Myocardial infarction) x ASA 4: a patient with an incapacitating disease that is a constant threat to life (CHF, renal failure) ASA 5: a moribund patient not expected to survive 24 hrs. (ruptured aneurysm) ASA 6: a declared brain patient whose organs are being harvested. For emergent operations, add the letter E after the classification Grade 3 Sedation Plan: Analgesia, Amnesia, Plan communicated to team members, Discussed options with patient/fam, Discussed risks with patient/fam Note The patient is an appropriate candidate to undergo the planned procedure, sedation, and anesthesia. The patient immediately re-assessed prior to indication. MEGAN KENDRICK MD Oct 07, 2017 11:53
[2017-10-07] MEDS ORDERED: NITRO DRIP 25000 MCG/D5W 250 ML IV ONE (11:57)
[2017-10-07] MEDS ORDERED: HEParin 1000 UNIT/ML (10ML VIAL) FOR BOLUS ONE (11:57)
[2017-10-07] MEDS ORDERED: NITROPRUSSIDE INJECTION 50 MG in D5W IV SOLUTION (EXCEL) 250 ML IV SCH (12:15)
--- NOTE | 2017-10-07 12:28 | Cardiac Cath Report ---
Cardiac Cath Report Physician (s)/Debridging Machine Operator (s) Physician MEGAN KENDRICK MD Pre-Procedure Diagnosis Pre-Procedure Diagnosis: chest pain and abnormal ecg Post-Procedure Note Procedure Start Date: Oct 07, 2017 Name of Procedure: Left heart catheterization, left ventriculogram Abdominal aortogram Findings/Procedure Note PROCEDURE NOTE: 72 years old lady brought to the emergency room with acute change in mental status, was complaining of some chest pain and left arm pain, had EKG changes with new onset incomplete left bundle branch block. Decided to proceed with cardiac catheterization due to active chest pain and the EKG changes. Patient was unable to provide a consent, emergency consent was acquired after discussing the management plan with Dr. MARIN and Dr. Wilkes. She was placed on the cardiac catheterization laboratory. Groin was prepped SL fashion local anesthesia was used. Sheath placed in the right femoral artery. Eladia right and left catheter were used to access the coronary system. Pigtail was used to access the left ventricular cavity. Left ventriculogram was done Aortic aortogram was done due to the severe hypertension, patient was started on nitroglycerin drip and nitroprusside drip At the end of the procedure the sheath was removed. Closure device was not used , sheath was sutured in place FINDINGS: Hemodynamics LV 210/19, end-diastolic pressure of 19 Aorta 21 9/83 mean of 136 ANATOMY: Left Main is free of obstructive disease Left Anterior Descending has mild disease nonobstructive disease Left Circumflex has mild disease nonobstructive disease Right Coronory Artery has moderate disease at the mid to distal portion nonobstructive disease LV Gram was done, left ventricle is normal in size with normal contractile TSH ejection fraction 60 percent Aorta evaluation done with abdominal aortogram which showed mild atherosclerotic disease in the abdominal aorta, no dissection or aneurysm, origin of the renal artery showed some calcification nonobstructive disease, see. An inferior mesenteric arteries appeared normal CONCLUSION: 1. Pqad-vs-qipmapeq coronary artery disease nonobstructive disease 2. Normal left ventricular size and systolic function estimated ejection fraction 60 percent 3. Hypertensive changes in the thoracic and abdominal aorta, no dissection or aneurysm, mild calcification at the origin of the left renal artery, nonobstructive disease 4. Malignant hypertension, started on nitroprusside drip DISCUSSION AND RECOMMENDATION: Patient's condition is critical, she will be admitted to intensive care unit, I discussed the management plan with Dr. Marin and Dr. Alfred. Dr. Eng was notified who is covering for Dr. Garnett Anesthesia Type: Conscious Sedation Estimated blood loss (mL): 5 ml Contrast Amount: 54 ml Total Radiation Dose: 497 mGy Post-Procedure Diagnosis Post-operative diagnosis: Chest pain, nonspecific etiology Malignant hypertension Change in mental status Diabetes mellitus MEGAN KENDRICK MD Oct 07, 2017 12:28
[2017-10-07] MEDS ORDERED: PATIENT MAY USE OWN MEDS, ALL PO SCH (12:30)
[2017-10-07] MEDS: NS IV 1000 ML 1,000 ML IV SCH ×2 (12:41→16:05)
--- NOTE | 2017-10-07 13:38 | Diagnostic Imaging Report ---
PROCEDURE: MR imaging of the brain without contrast. TECHNIQUE: Multiplanar, multisequence MR imaging of the brain was performed without contrast. INDICATION: Altered mental status and chest pain as well as high blood pressure. FINDINGS: The diffusion-weighted images are without evidence of restriction to suggest acute ischemia. The normal expected flow voids within the carotid siphons are seen. Ventricles and sulci are appropriate for the patient's age. Moderate periventricular and subcortical white matter signal abnormalities noted consistent with chronic microvascular ischemia. 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 Sella and parasellar structures are unremarkable. No acute intra-axial or extra-axial hemorrhage is seen. IMPRESSION: Changes of chronic microvascular ischemia. No acute intracranial process is detected. Dictated by: Dictated on workstation # [id number]
--- NOTE | 2017-10-07 14:15 | Diagnostic Imaging Report ---
INDICATION: Altered mental status. Below the knee amputation of both legs. Chest pain. Hypertension. TECHNIQUE: Grayscale with color-flow and Doppler waveform evaluation of the bilateral lower extremity deep venous systems. CORRELATION STUDY: None FINDINGS: Color images demonstrate no intraluminal filling defect within the visualized portion of the common femoral, superficial femoral veins to suggest thrombus formation. The left popliteal vein appearing unremarkable. Right popliteal vein unable to be visualized given the recent heart catheterization and inability to move leg. No soft tissue fluid collection. IMPRESSION: 1. Negative for deep venous thrombosis of either leg. However, there is some limitations particularly involving the assessment of the lower right deep venous system. Dictated by: Dictated on workstation # [id number]
[2017-10-07] MEDS ORDERED: meTOprolol 5 MG/5 ML (LOPRESSOR) VIAL IV ONE (14:30)
[2017-10-07] MEDS ORDERED: morphine INJ 4 MG/ML 1 ML (VIAL/SYRINGE) IVP PRN (14:30)
[2017-10-07] MEDS ORDERED: meTOprolol 5 MG/5 ML (LOPRESSOR) VIAL ONE (14:33)
[2017-10-07] MEDS ORDERED: morphine INJ 4 MG/ML 1 ML (VIAL/SYRINGE) ONE (14:39)
[2017-10-07] MEDS ORDERED: CEFEPIME INJECTION 2,000 MG in NS (IVPB) 50 ML IV NR (15:00)
[2017-10-07] MEDS: NITRO DRIP 25000 MCG/D5W 250 ML IV SCH (15:14)
[2017-10-07] MEDS: ENALAPRILAT 2.5 MG/2 ML (VASOTEC) VIAL IV SCH ×2 (15:24→20:00)
--- NOTE | 2017-10-07 16:11 | Pulmonary Consultation ---
History of Present Illness History of Present Illness Date of Consultation 10/07/17 16:05 Time Seen by Provider: 16:05 Date of Admission Reason for Visit: EKG changes, chest pain History of Present Illness 72yo with hx of DM bilateral BKA and hx of medical noncompliance presented to ED secondary to MS changes. Pt was able to hold a normal conversation yesterday. However last night started acting different. Last known well time was 9pm. PT was noted to have slurred speech and disorientation in ED. PT would open eyes. Cardiac enzymes are negative. PT was having some chest discomfort. Dr. Perez took patient to director of cath lab and she was found to have normal coronary arteries. PT had severe HTN in ED with SBP >200. Unable to obtain ROS. I am consulted for ICU management. Allergies and Home Medications Allergies Coded Allergies: Iodinated Contrast- Oral and IV Dye (Verified Allergy, Intermediate, SWELLING HANDS AND FEET, 01/06/16) Penicillins (Verified Allergy, Mild, Pt has received Ceftriaxone & Cefazolin in the past, 10/07/17) codeine (Verified Allergy, Mild, Pt has taken Percocet w/o issue, 08/09/17) ibuprofen (Verified Allergy, Mild, 01/06/16) propoxyphene (Verified Allergy, Mild, 01/06/16) Sulfa (Sulfonamide Antibiotics) (Unverified Allergy, Unknown, 11/25/16) hydrocodone (Verified Adverse Reaction, Intermediate, NAUSEA, 01/06/16) per pt Home Medications Bethanechol Chloride 25 Mg Tablet, 50 MG PO ACHS Prescribed by: MYKEL ELIZABETH on 08/18/17 144 Buspirone HCl 10 Mg Tablet, 10 MG PO BID PRN for anxiety Prescribed by: MYKEL ELIZABETH on 08/18/17 144 Ciprofloxacin HCl 250 Mg Tablet, 250 MG PO BID Prescribed by: MYKEL ELIZABETH on 08/19/17 0828 Ergocalciferol (Vitamin D2) 50,000 Unit Capsule, 50,000 UNITS PO Th@0700 Prescribed by: MYKEL ELIZABETH on 08/18/17 144 Insulin Determir 1,000 Units/10 Ml Soln, 12 UNIT SQ BID Prescribed by: MYKEL ELIZABETH on 08/18/17 144 Nicotine 1 Each Patch.td24, 14 MG TD DAILY@0900 Prescribed by: MYKEL ELIZABETH on 08/18/17 1444 Ondansetron 4 Mg Tab.rapdis, 4 MG PO Q6H PRN for NAUSEA/VOMITING-1ST LINE Prescribed by: MYKEL ELIZABETH on 08/18/17 144 Oxycodone HCl/Acetaminophen 1 Each Tablet, 2 EACH PO Q4H PRN for PAIN-MODERATE Prescribed by: MYKEL ELIZABETH on 08/18/17 144 Pantoprazole Sodium 40 Mg Tablet.dr, 40 MG PO DAILY@0700 Prescribed by: MYKEL ELIZABETH on 08/18/17 144 Tamsulosin HCl 0.4 Mg Cap, 0.4 MG PO DAILY@1800 Prescribed by: MYKEL ELIZABETH on 08/18/17 1444 Past Yxniohm-Tmcztv-Bzmwtv Hx Past Med/Social Hx: Reviewed Nursing Past Med/Soc Hx Patient Social History Alcohol Use: Denies Use Recreational Drug Use: No Smoking Status: Current Everyday Smoker Type Used: Cigarettes 2nd Hand Smoke Exposure: No Recent Foreign Travel: No Contact w/Someone Who Travel: No Recent Infectious Disease Expo: No Recent Hopitalizations: Yes Physical Abuse: No Sexual Abuse: No Immunizations Up To Date Tetanus Booster (TDap): Less than 5yrs PED Vaccines UTD: No Date of Pneumonia Vaccine: Jan 10, 2016 Date of Influenza Vaccine: Jan 10, 2016 Seasonal Allergies Seasonal Allergies: Yes Past Medical History Surgeries: Yes (BILAT BKA, SEWED RIGHT INDEX FINGER TEENAG) Amputation, Orthopedic Respiratory: Yes Asthma, COPD Currently Using CPAP: No Currently Using BIPAP: No Cardiac: Yes High Cholesterol, Hypertension, Peripheral Vascular Neurological: Yes Neuropathy Reproductive Disorders: No 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 Disorders: 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 Sexually Transmitted Disease: No HIV/AIDS: No Genitourinary: Yes Kidney Stones, UTI-Chronic Gastrointestinal: Yes Gastroesophageal Reflux, Pancreatitis Musculoskeletal: Yes Amputee, Osteoporosis, Arthritis Endocrine: Yes (Non-compliant DM) Diabetes, Non-Insulin dep HEENT: Yes Cataract Loss of Vision: Denies Hearing Impairment: Denies Cancer: No Psychosocial: Yes Anxiety, Depression Nursing Suicide Risk Score: 0 Integumentary: Yes (DIABETIC ULCERS, CHRONIC CELLULITIS) Blood Disorders: No Adverse Reaction/Blood Tranf: No Family Medical History Reviewed Nursing Family Hx Patient reports no known family medical history. No Pertinent Family Hx All history per records as patient has altered mental status. Review of Systems Time Seen by Provider: 14:09 Exam Exam Vital Signs Date Time Temp Pulse Resp B/P (MAP) Pulse Ox O2 Delivery O2 Flow Rate FiO2 10/07/17 15:14 181/76 10/07/17 13:53 93 10/07/17 13:36 99.0 87 12 181/76 (111) 99 Nasal Cannula 2.00 10/07/17 12:39 102 17 162/73 97 2.00 10/07/17 11:00 98.0 98 18 188/87 98 10/07/17 09:40 98 Room Air 10/07/17 09:35 98.0 98 18 188/87 (120) 97 Room Air General Appearance: Severe Distress, Thin HEENT: PERRL/EOMI, Normal ENT Inspection Neck: Normal Inspection, Supple Respiratory: Crackles, Decreased Breath Sounds Cardiovascular: Regular Rate, Rhythm, No JVD, Systolic Murmur, Gallop/S3 Capillary Refill: Less Than 3 Seconds Gastrointestinal: non tender, soft Extremity: Normal Inspection, Non Tender, Other (Bilateral BKA) Neurologic/Psychiatric: Other (Lethargic, disoriented, moving extremities) Results Lab Laboratory Tests 10/07/17 09:42 Assessment/Plan Assessment/Plan MS changes - metabolic encephalopathy -PT is starting to wake up more Malignant HTN -PT is on nitro gtt currently UTI -Cultures pending -continue Cefepime Infiltrate vs mass on CXR -Will continue to follow CXR for now CP s/p Cath BKA bilaterally 255 WAQAS WALTER DO Oct 07, 2017 16:11
[2017-10-07] MEDS ORDERED: HEParin 1000 UNIT/ML (10ML VIAL) FOR BOLUS IV SCH (20:45)
[2017-10-07] MEDS ORDERED: HEParin DRIP 25000 UNIT/500ML 500 ML IV SCH (20:46)
[2017-10-07] MEDS ORDERED: HEParin DRIP 25000 UNIT/500ML 500 ML IV ONE (20:56)
[2017-10-07] MEDS ORDERED: CEFEPIME INJECTION 2,000 MG in NS (IVPB) 50 ML IV SCH ×4 (21:00)
[2017-10-08] VITALS (22 sets, daily range): BP systolic 109–180; BP diastolic 51–95
[2017-10-08] MEDS: meTOprolol 5 MG/5 ML (LOPRESSOR) VIAL IV SCH ×2 (02:01→06:55)
[2017-10-08] MEDS: NS IV 1000 ML 1,000 ML IV SCH ×3 (02:30→19:19)
[2017-10-08 03:32] LABS: BASOPHILS % (AUTO) 0 % (0-10); EOSINOPHILS % (AUTO) 0 % (0-10); HEMATOCRIT 29 % (35-52); HEMOGLOBIN 9.5 G/DL (11.5-16.0); LYMPHOCYTES # (AUTO) 1.9 X 10^3 (1.0-4.0); LYMPHOCYTES % (AUTO) 21 % (12-44); MEAN CORPUSCULAR HEMOGLOBIN 27 PG (25-34); MEAN CORPUSCULAR HGB CONC 33 G/DL (32-36); MEAN CORPUSCULAR VOLUME 84 FL (80-99); MEAN PLATELET VOLUME 9.6 FL (7.4-10.4); MONOCYTES # (AUTO) 0.7 X 10^3 (0.0-1.0); MONOCYTES % (AUTO) 7 % (0-12); NEUTROPHILS # (AUTO) 6.3 X 10^3 (1.8-7.8); NEUTROPHILS % (AUTO) 71 % (42-75); PLATELET COUNT 211 10^3/uL (130-400); RED BLOOD COUNT 3.49 10^6/uL (4.35-5.85); RED CELL DISTRIBUTION WIDTH 15.2 % (10.0-14.5); WHITE BLOOD COUNT 8.9 10^3/uL (4.3-11.0)
[2017-10-08] MEDS: ENALAPRILAT 2.5 MG/2 ML (VASOTEC) VIAL IV SCH ×2 (03:48→08:52)
[2017-10-08 03:53] LABS: CREATININE SERUM 0.91 MG/DL (0.60-1.30); MAGNESIUM 1.6 MG/DL (1.8-2.4); PHOSPHORUS 4.8 MG/DL (2.3-4.7); POTASSIUM 3.4 MMOL/L (3.6-5.0)
[2017-10-08 03:55] LABS: CHOLESTEROL 156 MG/DL (< 200); HDL CHOLESTEROL 45 MG/DL (40-60); TRIGLYCERIDES 95 MG/DL (<150); VLDL CHOLESTEROL 19 MG/DL (5-40)
[2017-10-08] MEDS: KCL 20 MEQ TAB (K-DUR) PO SCH (04:12)
[2017-10-08] MEDS: POTASSIUM CL 10MEQ/50ML IVPB 50 ML IV SCH ×3 (04:12→08:20)
[2017-10-08] MEDS: MAGNESIUM 1 GM/100 ML IVPB 100 ML IV SCH ×3 (04:12→05:27)
[2017-10-08] MEDS ORDERED: POTASSIUM CL 10MEQ/50ML IVPB 100 ML IV ONE (04:17)
[2017-10-08] MEDS ORDERED: MAGNESIUM 1 GM/100 ML IVPB 200 ML IV ONE (04:17)
--- NOTE | 2017-10-08 06:42 | Pulmonary Progress Note ---
Subjective Time Seen by Provider: 06:39 Subjective/Events-last exam Pt is now much more alert. SHe is talking in full sentences. No complications noted. Focused Exam Lactate Level 10/07/17 09:42: Lactic Acid Level 0.74 Exam Exam Vital Signs Date Time Temp Pulse Resp B/P (MAP) Pulse Ox O2 Delivery O2 Flow Rate FiO2 10/08/17 06:00 76 13 143/57 (85) 95 Room Air 10/08/17 05:00 80 14 129/53 (78) 94 Room Air 10/08/17 04:01 96.0 Room Air 10/08/17 04:00 Room Air 10/08/17 04:00 77 13 122/52 (75) 98 Room Air 10/08/17 03:00 75 12 115/51 (72) 95 Room Air 10/08/17 02:00 77 12 109/51 (70) 96 Room Air 10/08/17 01:00 81 14 114/55 (74) Room Air 10/08/17 00:59 81 10/08/17 00:00 Room Air 10/08/17 00:00 85 13 121/52 (75) 93 Room Air 10/08/17 00:00 96.9 10/07/17 23:00 80 12 110/52 (71) 95 Room Air 10/07/17 22:00 82 9 124/53 (76) 96 Room Air 10/07/17 21:00 76 15 114/52 (72) 96 Room Air 10/07/17 20:00 98.2 Room Air 10/07/17 20:00 Room Air 10/07/17 20:00 82 21 116/57 (76) 94 Room Air 10/07/17 19:02 85 10/07/17 19:00 90 12 110/59 (76) 90 Room Air 10/07/17 18:00 85 11 108/57 (74) 95 Room Air 10/07/17 17:30 94 Room Air 10/07/17 17:00 93 12 129/66 (87) 10/07/17 17:00 94 Nasal Cannula 2.00 10/07/17 16:30 Nasal Cannula 2.00 10/07/17 16:00 94 11 130/71 (90) 10/07/17 15:14 181/76 10/07/17 15:00 98 11 116/58 (77) 10/07/17 14:45 96 12 132/58 (82) 10/07/17 14:30 122 17 143/82 (102) 10/07/17 14:15 110 14 140/77 (98) 10/07/17 14:15 96 Nasal Cannula 2.00 10/07/17 14:00 114 13 134/82 (99) 10/07/17 14:00 Nasal Cannula 2.00 10/07/17 13:53 93 10/07/17 13:45 86 11 181/76 (111) 10/07/17 13:36 99.0 87 12 181/76 (111) 99 Nasal Cannula 2.00 10/07/17 12:39 102 17 162/73 97 2.00 10/07/17 11:45 98.0 98 18 188/87 (120) 98 Room Air 10/07/17 11:00 98.0 98 18 188/87 98 10/07/17 09:40 98 Room Air 10/07/17 09:35 98.0 98 18 188/87 (120) 97 Room Air I & O 10/08/17 07:00 Intake Total 200 ml Output Total 800 ml Balance -600 ml General Appearance: No Apparent Distress, Anxious, Thin HEENT: PERRL/EOMI, Normal ENT Inspection Neck: Normal Inspection, Supple Respiratory: Decreased Breath Sounds Cardiovascular: Regular Rate, Rhythm, No JVD, Systolic Murmur, Gallop/S3 Capillary Refill: Less Than 3 Seconds Gastrointestinal: non tender, soft Extremity: Normal Inspection, Non Tender, Other (Bilateral BKA) Neurologic/Psychiatric: Alert, Oriented x3 Skin: Normal Color, Cool Results Lab Laboratory Tests 10/07/17 09:42 10/08/17 03:20 Assessment/Plan Assessment/Plan MS changes - metabolic encephalopathy - probably secondary to medications and/ or HTN -PT is much more awake now -MRI no acute change Malignant HTN - resolved -PT is off nitro gtt currently -Monitor infiltrate vs mass on CXR -Check CT of chest with contrast Dehydration -give a liter of NS UTI -Cultures pending -continue Cefepime Electrolyte abnormality -replace Anemia -Monitor CAD s/p Cath BKA bilaterally WAQAS WALTER DO Oct 08, 2017 06:42
[2017-10-08] MEDS ORDERED: NS IV 1000 ML 1,000 ML IV ONE (07:00)
[2017-10-08] MEDS ORDERED: diphenhydrAMINE 50 MG/ML INJ (BENADRYL) IVP ONE ×2 (08:45→15:00)
[2017-10-08] MEDS ORDERED: IOHEXOL 350 MG/ML 100 ML (OMNIPAQUE 350) VIAL IV ONE (08:45)
[2017-10-08] MEDS ORDERED: methylPREDNISolone 125 MG (Solu-MEDROL) VIAL IVP ONE ×2 (08:45→15:00)
[2017-10-08] MEDS ORDERED: NS 100 ML (IVPB) BAG IV ONE (08:45)
--- NOTE | 2017-10-08 10:46 | Cardiology Progress Note ---
Subjective Date Seen by Provider: Oct 08, 2017 Time Seen by Provider: 10:45 Subjective/Events-last exam Patient feeling better, laying down in bed, awake, responding appropriately, oriented to time and place. Back to her baseline. Review of Systems General: No Chills, No Night Sweats, No Fatigue, No Malaise, No Appetite, No Other HEENT: No Head Aches, No Visual Changes, No Eye Pain, No Ear Pain, No Dysphasia , No Sinus Congestion, No Post Nasal Drip, No Sore Throat, No Other Pulmonary: No Dyspnea, No Cough, No Pleuritic Chest Pain, No Other Cardiovascular: No: Chest Pain, Palpitations, Orthopnea, Paroxysmal Noc. Dyspnea, Edema, Lt Headedness, Other Focused Exam Lactate Level 10/07/17 09:42: Lactic Acid Level 0.74 Objective-Cardiology Exam Last Set of Vital Signs Vital Signs 10/07/17 10/08/17 10/08/17 17:00 08:00 08:19 Temp 98.8 Pulse 84 Resp 22 B/P (MAP) 148/60 (89) Pulse Ox 94 O2 Delivery Room Air O2 Flow Rate 2.00 Capillary Refill : Less Than 3 Seconds I&O Intake and Output 10/08/17 00:00 Intake Total 200 ml Output Total 575 ml Balance -375 ml Intake Oral 150 ml IV Total 50 ml Output Urine Total 575 ml Daily Weight Change Unsure General: Alert, Oriented X3, Cooperative HEENT: Atraumatic, PERRLA Neck: Supple, No JVD, No Thyromegaly Lungs: Clear to Auscultation, Normal Air Movement Heart: Regular Rate, Normal S1, Normal S2, No Murmurs Abdomen: Normal Bowel Sounds, Soft, No Tenderness, No Hepatosplenomegaly, No Masses Extremities: No Clubbing, No Cyanosis, No Edema, Normal Pulses, No Tenderness/ Swelling Skin: No Rashes, No Breakdown, No Significant Lesion Neuro: Normal Gait, Normal Speech, Strength at 5/5 X4 Ext, Normal Tone, Sensation Intact Psych/Mental Status: Mental Status NL, Mood NL Results Lab Laboratory Tests 10/08/17 03:20 A/P-Cardiology Admission Diagnosis Acute coronary syndrome Change in mental status Malignant hypertension BKA Assessment/Plan Chest pain, EKG changes, suggestive of acute coronary syndrome, cardiac catheterization done showing mild coronary artery disease nonobstructive disease Malignant hypertension, better controlled at this time, I will switch her to oral medication and monitor her tolerance and response Change in mental status, probably hypertensive encephalopathy, blood pressure is better, mental status is back to baseline. Continue to monitor at this time CT of the head was negative. Bilateral BKA, last surgery was done last month. Diabetes mellitus. Followed and managed by primary care physician History of noncompliance with medications. Clinical Quality Measures DVT/VTE Risk/Contraindication: Risk Factor Score Per Nursin RFS Level Per Nursing on Admit: 4+=Very High Stroke: Date of last known well: Oct 06, 2017 MEGAN KENDRICK MD Oct 08, 2017 10:46
[2017-10-08] MEDS: lisINopril 10 MG (PRINIVIL) TABLET PO SCH (11:22)
[2017-10-08] MEDS: meTOprolol TARTRATE 25 MG (LOPRESSOR) TABLET PO SCH ×2 (11:22→21:20)
--- NOTE | 2017-10-08 11:37 | Diagnostic Imaging Report ---
EXAMINATION: Portable erect AP chest at 02:37 a.m. INDICATION: Dyspnea. FINDINGS: The heart size is within normal limits and stable when compared to 10/07/2017. The patchy area of increased density in the left mid lung seen on the prior study is again evident and essentially no different. This finding is most likely due to a focus of pneumonia/atelectasis. The lungs are otherwise clear. There is no sign of a pleural effusion. The mediastinum is not widened. The osseous structures are intact. IMPRESSION: There is persistent involvement of the left mid lung by pneumonia/atelectasis. Overall, there has been no significant change. A follow-up exam will be recommended for continued evaluation. Dictated by: Dictated on workstation # [id number]
--- NOTE | 2017-10-08 12:16 | History & Physical-Hospitalist ---
History of Present Illness HPI/Chief Complaint CC: Unresponsiveness HPI: This is a 72yo[place] patient of Dr Garnett [place] w/h/[place] B[place]'s remotely who presents to the ER w/unresponsiveness. It was felt she had acute coronary syndrome so she was taken to cardiac catheterization urgently found to have no stenotic coronary vessels so she was admitted to the ICU placed on IV antihypertensive medication due to malignant hypertension and assessed to have hypertensive encephalopathy. Currently she just had a right central line placed by Dr. Triplett and is currently looking for her purse. Rhea the nurse has reassured her she will [facility] to get her [facility]. Patient is much more responsive today. I checked her labs and meds and updated her on the plan. Source: patient, RN/MD Exam Limitations: clinical condition Date Seen 10/08/17 Time Seen by Provider: 10:30 Attending Physician Humza Garnett DO PCP Humza Garnett DO Referring Physician Date of Admission Home Medications & Allergies Home Medications Reviewed patient Home Medication Reconciliation performed by pharmacy medication reconciliations apprentice technician and/or nursing. Patients Allergies have been reviewed. Allergies Allergies Coded Allergies Iodinated Contrast- Oral and IV Dye (Verified Allergy, Intermediate, SWELLING HANDS AND FEET, 01/06/16) Penicillins (Verified Allergy, Mild, Pt has received Ceftriaxone & Cefazolin in the past, 10/07/17) codeine (Verified Allergy, Mild, Pt has taken Percocet w/o issue, 08/09/17) ibuprofen (Verified Allergy, Mild, 01/06/16) propoxyphene (Verified Allergy, Mild, 01/06/16) Sulfa (Sulfonamide Antibiotics) (Unverified Allergy, Unknown, 11/25/16) hydrocodone (Verified Adverse Reaction, Intermediate, NAUSEA, 01/06/16) per pt Past Txctddh-Gnydqx-Qotstx Hx Past Med/Social Hx: Reviewed Nursing Past Med/Soc Hx, Reviewed and Corrections made Patient Social History Marrital Status: Employed/Student: retired Alcohol Use: Denies Use Recreational Drug Use: No Smoking Status: Current Everyday Smoker Type Used: Cigarettes 2nd Hand Smoke Exposure: No Physical Abuse Screen: No Sexual Abuse: No Recent Foreign Travel: No Contact w/other who traveled: No Recent Hopitalizations: Yes Recent Infectious Disease Expo: No Immunizations Up To Date Tetanus Booster (TDap): Less than 5yrs Pediatric: No Date of Pneumonia Vaccine: Jan 10, 2016 Date of Influenza Vaccine: Jan 10, 2016 Seasonal Allergies Seasonal Allergies: Yes Past Medical History Surgeries: Amputation, Orthopedic Respiratory: Asthma, COPD Currently Using CPAP: No Currently Using BIPAP: No Cardiac: High Cholesterol, Hypertension, Peripheral Vascular Neurological: Dementia, Neuropathy Reproductive: No Sexually Transmitted Disease: No HIV/AIDS: No 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 Disorders: Denies Hysterectomy Genitourinary: Kidney Stones, UTI-Chronic Gastrointestinal: Gastroesophageal Reflux, Pancreatitis Musculoskeletal: Amputee, Osteoporosis, Arthritis Endocrine: Diabetes, Non-Insulin dep HEENT: Cataract Loss of Vision: Denies Hearing Impairment: Denies Psychosocial: Anxiety, Depression History of Blood Disorders: No Adverse Reaction to Blood Moss: No Family History Reviewed Nursing Family Hx Patient reports no known family medical history. No Pertinent Family Hx All history per records as patient has altered mental status. Review of Systems ROS-Unable to Obtain: pt confused no reliable details obtained Constitutional: see HPI Physical Exam Physical Exam Vital Signs Vital Signs - First Documented 10/07/17 10/07/17 09:35 12:39 Temp 98.0 Pulse 98 Resp 18 B/P (MAP) 188/87 (120) Pulse Ox 97 O2 Delivery Room Air O2 Flow Rate 2.00 Capillary Refill : Less Than 3 Seconds General Appearance: No Apparent Distress, WD/WN, Chronically ill Neck: Normal Inspection, Non Tender, Supple Respiratory: Chest Non Tender, Lungs Clear, Normal Breath Sounds, No Accessory Muscle Use, No Respiratory Distress Cardiovascular: Regular Rate, Rhythm, No Edema, No Gallop, No JVD, No Murmur, Normal Peripheral Pulses Extremity: Normal Capillary Refill, Normal Inspection, Normal Range of Motion, Non Tender, No Calf Tenderness, No Pedal Edema, Other (bilateral BKA's) Neurologic/Psychiatric: Alert, Disoriented Skin: Normal Color, Warm/Dry Results Results/Procedures Labs Laboratory Tests 10/07/17 09:42 10/08/17 03:20 Patient resulted labs reviewed. Assessment/Plan Admission Diagnosis Assessment: Hypertensive encephalopathy Questionable chest pain cardiac catheterization performed revealing no significant heart disease Diabetes mellitus Smoker Severe peripheral vascular disease status post bilateral [id number] amputations Kidney stones Plan: ICU management DO NOT RESUSCITATE order Poor prognosis long-term Admission Status: Inpatient Order (span 2 midnights) Reason for Inpatient Admission: HTN malignant type with encephalopathy Diagnosis/Problems Diagnosis/Problems (1) Hypertensive emergency Status: Acute (2) Altered mental status Status: Acute Qualifiers: Altered mental status type: unspecified Qualified Codes: R41.82 - Altered mental status, unspecified (3) Encephalopathy acute Status: Acute (4) PVD (peripheral vascular disease) Status: Chronic (5) Amputation of lower limb Status: Chronic (6) Smoker Status: Chronic (7) Renal lithiasis Status: Chronic (8) Type 2 diabetes mellitus Status: Chronic Qualifiers: Diabetes mellitus alf insulin use: with ferry terminal agent use Diabetes mellitus complication status: with circulatory complication Diabetes mellitus complication detail: with other circulatory complications Qualified Codes: E11.59 - Type 2 diabetes mellitus with other circulatory complications; 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
[2017-10-08] MEDS: CEFEPIME INJECTION 2,000 MG in NS (IVPB) 50 ML IV SCH (12:27)
--- NOTE | 2017-10-08 12:45 | Consultation ---
History of Present Illness History of Present Illness Patient Consulted On(maria teresa/time) 10/08/17 12:40 Time Seen by Provider: 10:22 Reason for Visit: EKG changes, chest pain History of Present Illness Surgery asked to consult regarding venous insufficiency and need for IV access. HPI per Medical Screener: With history of bilateral BKA, history of noncompliance with medication and diabetes. Brought to the emergency room for change in mental status, it was reported that she was functional yesterday, able to hold a conversation and support herself and perform her basic activity. Currently she is responsive by opening her eyes with slurred speech, disoriented, having some chest pain. I tried to reach her family without success. She was noted to have EKG changes which is new. Cardec enzymes were negative. Still having some chest discomfort and severely hypertensive. She is known to be noncompliant. I discussed with Dr. MARIN and Dr. Garnett her condition, apparently she has stopped talking to her daughter and her daughter is not answering the phone. She will need a heart catheterization, patient was cooperative yesterday. Currently unable to provide a full consent, consent was acquired by discussing the situation, she is having an emergent condition, we have 3 physicians agreed on the procedure and we will proceed. When I saw pt she was just starting to answer questions appropriately, most information obtained from the chart. She was not currently in pain. Pt had 2 IV's go bad and they could not get access and she needed IV fluids and medications. Allergies and Home Medications Allergies Coded Allergies: Iodinated Contrast- Oral and IV Dye (Verified Allergy, Intermediate, SWELLING HANDS AND FEET, 01/06/16) Penicillins (Verified Allergy, Mild, Pt has received Ceftriaxone & Cefazolin in the past, 10/07/17) codeine (Verified Allergy, Mild, Pt has taken Percocet w/o issue, 08/09/17) ibuprofen (Verified Allergy, Mild, 01/06/16) propoxyphene (Verified Allergy, Mild, 01/06/16) Sulfa (Sulfonamide Antibiotics) (Unverified Allergy, Unknown, 11/25/16) hydrocodone (Verified Adverse Reaction, Intermediate, NAUSEA, 01/06/16) per pt Home Medications Bethanechol Chloride 25 Mg Tablet, 50 MG PO ACHS Prescribed by: MYKEL ELIZABETH on 08/18/17 1444 Buspirone HCl 10 Mg Tablet, 10 MG PO BID PRN for anxiety Prescribed by: MYKEL ELIZABETH on 08/18/17 144 Ciprofloxacin HCl 250 Mg Tablet, 250 MG PO BID Prescribed by: MYKEL ELIZABETH on 08/19/17 0828 Ergocalciferol (Vitamin D2) 50,000 Unit Capsule, 50,000 UNITS PO Th@0700 Prescribed by: MYKEL ELIZABETH on 08/18/17 144 Insulin Determir 1,000 Units/10 Ml Soln, 12 UNIT SQ BID Prescribed by: MYKEL ELIZABETH on 08/18/17 144 Nicotine 1 Each Patch.td24, 14 MG TD DAILY@0900 Prescribed by: MYKEL ELIZABETH on 08/18/17 144 Ondansetron 4 Mg Tab.rapdis, 4 MG PO Q6H PRN for NAUSEA/VOMITING-1ST LINE Prescribed by: MYKEL ELIZABETH on 08/18/17 144 Oxycodone HCl/Acetaminophen 1 Each Tablet, 2 EACH PO Q4H PRN for PAIN-MODERATE Prescribed by: MYKEL ELIZABETH on 08/18/17 144 Pantoprazole Sodium 40 Mg Tablet.dr, 40 MG PO DAILY@0700 Prescribed by: YMKEL ELIZABETH on 08/18/17 144 Tamsulosin HCl 0.4 Mg Cap, 0.4 MG PO DAILY@1800 Prescribed by: MYKEL ELIZABETH on 08/18/17 144 Patient Home Medication List Home Medication List Reviewed: Yes Past Rqqtspy-Cfcrgh-Dnaeiz Hx Patient Social History Alcohol Use: Denies Use Recreational Drug Use: No Smoking Status: Current Everyday Smoker Type Used: Cigarettes 2nd Hand Smoke Exposure: No Recent Foreign Travel: No Contact w/Someone Who Travel: No Recent Infectious Disease Expo: No Recent Hopitalizations: Yes Physical Abuse Screen: No Sexual Abuse: No Immunizations Up To Date Tetanus Booster (TDap): Less than 5yrs PED Vaccines UTD: No Date of Pneumonia Vaccine: Jan 10, 2016 Date of Influenza Vaccine: Jan 10, 2016 Seasonal Allergies Seasonal Allergies: Yes Surgeries History of Surgeries: Yes (BILAT BKA, SEWED RIGHT INDEX FINGER TEENAG) Surgeries: Amputation, Orthopedic Respiratory History of Respiratory Disorde: Yes Respiratory Disorders: Asthma, COPD Cardiovascular History of Cardiac Disorders: Yes Cardiac Disorders: High Cholesterol, Hypertension, Peripheral Vascular Neurological History of Neurological Disord: Yes Neurological Disorders: Dementia, Neuropathy Reproductive System Hx Reproductive Disorders: No Sexually Transmitted Disease: No HIV/AIDS: No 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 Disorders: Denies 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 History: Hysterectomy Genitourinary History of Genitourinary Disor: Yes Genitourinary Disorders: Kidney Stones, UTI-Chronic Gastrointestinal History of Gastrointestinal Di: Yes Gastrointestinal Disorders: Gastroesophageal Reflux, Pancreatitis Musculoskeletal History of Musculoskeletal Dis: Yes Musculoskeletal Disorders: Amputee, Osteoporosis, Arthritis Endocrine History of Endocrine Disorders: Yes (Non-compliant DM) Endocrine Disorders: Diabetes, Non-Insulin dep HEENT History of HEENT Disorders: Yes HEENT Disorders: Cataract Loss of Vision: Denies Hearing Impairment: Denies Cancer History of Cancer: No Psychosocial History of Psychiatric Problem: Yes Behavioral Health Disorders: Anxiety, Depression Integumentary History of Skin or Integumenta: Yes (DIABETIC ULCERS, CHRONIC CELLULITIS) Blood Transfusions History of Blood Disorders: No Adverse Reaction to a Blood Tr: No Family Medical History Significant Family History: No Pertinent Family Hx Family Medial History: Patient reports no known family medical history. Review of Systems-General ROS-Unable to Obtain: obtained from chart, pt doesn't remember coming in Constitutional: malaise, weakness EENTM: vision loss; No mouth pain, No mouth swelling Respiratory: cough, dyspnea on exertion; No hemoptysis Cardiovascular: chest pain, Hx of Intervention Gastrointestinal: No abdominal pain, No diarrhea Musculoskeletal: joint swelling, muscle stiffness, muscle cramps, other ( bilaterally BKA) Psychiatric/Neurological: Weakness Physical Exam-General Problems Physical Exam Vital Signs Vital Signs - First Documented 10/07/17 10/07/17 09:35 12:39 Temp 98.0 Pulse 98 Resp 18 B/P (MAP) 188/87 (120) Pulse Ox 97 O2 Delivery Room Air O2 Flow Rate 2.00 Capillary Refill : Less Than 3 Seconds General Appearance: mild distress, cachetic Eyes: Bilateral Eye PERRL, Bilateral Eye EOMI HEENT: pharynx normal; No scleral icterus (R), No scleral icterus (L) Neck: supple; No thyromegaly Respiratory: chest non-tender, lungs clear, normal breath sounds, no respiratory distress, no accessory muscle use Cardiovascular: regular rate, rhythm Gastrointestinal: normal bowel sounds, soft, no organomegaly, no pulsatile mass Back: no CVA tenderness, no vertebral tenderness Neurologic/Psychiatric: carpenter helper II-XII nml as tested, alert, oriented x 3 Skin: normal color, warm/dry Lymphatic: no adenopathy (neck, axilla or groin) Data Review Labs Laboratory Tests 10/08/17 03:20: White Blood Count 8.9, Red Blood Count 3.49L, Hemoglobin 9.5L, Hematocrit 29L, Mean Corpuscular Volume 84, Mean Corpuscular Hemoglobin 27, Mean Corpuscular Hemoglobin Concent 33, Red Cell Distribution Width 15.2H, Platelet Count 211, Mean Platelet Volume 9.6, Neutrophils (%) (Auto) 71, Lymphocytes (%) (Auto) 21, Monocytes (%) (Auto) 7, Eosinophils (%) (Auto) 0, Basophils (%) (Auto) 0, Neutrophils # (Auto) 6.3, Lymphocytes # (Auto) 1.9, Monocytes # (Auto) 0.7, Eosinophils # (Auto) 0.0, Basophils # (Auto) 0.0, Activated Partial Thromboplast Time 54H, Sodium Level 142, Potassium Level 3.4L, Chloride Level 109H, Carbon Dioxide Level 21, Anion Gap 12, Blood Urea Nitrogen 19H, Creatinine 0.91, Estimat Glomerular Filtration Rate 60, BUN/Creatinine Ratio 21 , Glucose Level 212H, Calcium Level 9.0, Phosphorus Level 4.8H, Magnesium Level 1.6L, Triglycerides Level 95, Cholesterol Level 156, LDL Cholesterol Direct 90, VLDL Cholesterol 19, HDL Cholesterol 45 Microbiology 10/07/17 Urine Culture - Preliminary, Resulted Sent To [facility] Assessment/Plan Assessment/Plan Assessment/Plan Venous Insufficiency Hypertensive Encephalopathy - improving PVD DM Pt had central line placed with US guidance without difficulty. [facility]. Clinical Quality Measures DVT/VTE Risk/Contraindication: Risk Factor Score Per Nursin RFS Level Per Nursing on Admit: 4+=Very High Stroke: Date of last known well: Oct 06, 2017 MYKEL TREVINO DO Oct 08, 2017 12:45
--- NOTE | 2017-10-08 12:51 | Progress Note-Post Operative ---
Post-Operative Progess Note Surgeon (s)/Data Specialist (s) Surgeon MYKEL TREVINO DO Data Specialist: none Pre-Operative Diagnosis , Hypertensive Encephalopathy, DM, PVD Post-Operative Diagnosis Same Procedure & Operative Findings Date of Procedure 10/08/17 Procedure Performed/Findings Insertion Right IJ triple lumen catheter with US guidance Anesthesia Type local lidocaine Estimated Blood Loss Estimated blood loss (mL): scant Specimens/Packing Specimens Removed none MYKEL TREVINO DO Oct 08, 2017 12:51
[2017-10-08] MEDS: NITRO DRIP 25000 MCG/D5W 250 ML IV SCH (14:22)
--- NOTE | 2017-10-08 14:22 | Diagnostic Imaging Report ---
PROCEDURE: CT angiography of the chest with contrast. TECHNIQUE: Multiple contiguous axial images were obtained through the chest after uneventful bolus administration of intravenous contrast. Reconstructed CTA MIP acquisitions were also performed. INDICATION: Possible mass, shortness breath, chest pain. COMPARISON: None. FINDINGS: There is minimal cardiac enlargement. The pulmonary vascularity and aorta are grossly unremarkable. There is no embolism or aortic pathology. There is no pericardial or pleural effusion. There is a nodular infiltrate in the left upper lobe and anterior aspect. This could represent pneumonia or neoplasm. There are at least one prominent lymph node in the prevascular space and few prominent lymph nodes in the pretracheal subcarinal region. The largest lymph node is 11 mm. Visualized upper abdominal solid organs are unremarkable. There is chronic appearing compression fracture of T11 with low density lesion within the vertebral body. This could be a neoplasm or chronic osteoporosis with Schmorl's node. IMPRESSION: Nodular infiltrate left upper lobe representing neoplasm versus pneumonia. Followup after appropriate antibiotic therapy is recommended. If this does not resolve a CT guided biopsy is needed. Mediastinal lymphadenopathy. No pulmonary embolism or acute aortic pathology identified. Abnormal appearing T11 vertebral body with compression fracture and lytic process. Recommend MRI with and without contrast for further evaluation. Dictated by: Dictated on workstation # [id number]
[2017-10-08] MEDS ORDERED: MIDAZOLAM 2 MG/2 ML (VERSED) VIAL IVP ONE ×2 (15:00→18:00)
[2017-10-08] MEDS ORDERED: fentaNYL INJECTION 100 MCG/2 ML AMP ONE (16:42)
[2017-10-08] MEDS ORDERED: GADOBUTROL 7.5 MMOL/7.5 ML (GADAVIST) VIAL IV ONE (16:45)
[2017-10-08] MEDS ORDERED: fentaNYL INJECTION 100 MCG/2 ML AMP IVP ONE (18:00)
--- NOTE | 2017-10-08 20:13 | OPERATIVE REPORT ---
DATE OF SERVICE: PREOPERATIVE DIAGNOSES: 1. Venous insufficiency. 2. Hypertensive encephalopathy. 3. Peripheral vascular. 4. Diabetes mellitus. POSTOPERATIVE DIAGNOSES: 1. Venous insufficiency. 2. Hypertensive encephalopathy. 3. Peripheral vascular. 4. Diabetes mellitus. PROCEDURE PERFORMED: Insertion of central line right IJ with ultrasound guidance. SURGEON: Nikita Triplett DO. JACQUARD PLATE MAKER: None. ANESTHESIA: Local lidocaine. BLOOD LOSS: Scant. FLUIDS: None. POSTOPERATIVE CONDITION: Stable. INDICATION FOR PROCEDURE: The patient is a 72-year-old female who was admitted with mental status changes thought to be due to hypertensive encephalopathy, history of uncontrolled diabetes mellitus, peripheral vascular disease, possibly acute coronary syndrome, already had a cardiac catheterization by Cardiology, had 2 IVs go bad and needs IV access. FINDINGS: The patient had a right IJ triple lumen central line catheter placed with ultrasound guidance without difficulty. PROCEDURE NOTE: After informed consent was obtained, first did 2-physician consent, but I then walked into the room and started talking to the patient, she is able to answer questions and she had agreed to central line because she needed IV access. She was in her ICU bed. She was sterilely prepped and draped in normal fashion. Local lidocaine was used to infiltrate the right neck. Then, using ultrasound guidance, watched and advanced the needle with a negative inspiration able to cannulate the internal jugular vein. Good flash of blood, removed the syringe then placed a guidewire using Seldinger technique, it went in easily, checked with the ultrasound, it was in the internal jugular vein. I made a stab incision along the guidewire with a #11 blade and then over the guidewire, I placed the dilator using Seldinger technique, it went in easily, then removed it and then placed the triple lumen catheter over the guidewire using Seldinger technique, we went in easily, removed the wire and then easily aspirated and flushed in each port, got a good flash of blood and then flushed easily, sutured in place with a 2-0 silk suture, one on either side to hold this in place. It was then cleaned and dried and the nurse placed a sterile dressing. The patient tolerated the procedure. Job ID: [id number] DocumentID: [id number] Dictated Date: 10/08/2017 12:50:09 Head Shipper Date: 10/08/2017 20:12:13 Dictated By: NIKITA TRIPLETT DO [facility]
--- NOTE | 2017-10-08 22:42 | Diagnostic Imaging Report ---
INDICATION: Compression deformity seen at T11 on recent CT angiogram of the chest. No known recent injuries. EXAMINATION: MRI of the thoracic spine with and without contrast, 10/08/2017. COMPARISON: Correlation made to the CT from earlier on the same day. FINDINGS: There is a diffusely heterogeneous appearance to the visualized bone marrow signal throughout the thoracic spine. This is suspicious for a diffuse multifocal metastatic process. A compression deformity at T11 is noted which does enhance suggesting a possible pathologic fracture. Only minimal edema along its anterior border is seen but no significant edema is noted suggesting this could be a subacute to chronic process. There is mild irregularity along the superior endplate at T5 with diffuse mild T2 hyperintensity throughout the T5 vertebral body and also at T6. Underlying lesions are likely with superimposed fractures less likely but difficult to completely exclude. There is focal T2 hyperintensity along the posterior border at T8 with enhancement throughout the region, likely a metastatic lesion. Similar findings to a lesser degree seen posteriorly at T9 and there is diffuse enhancement of the T10 vertebral body. No cord compression seen at any level. Heterogeneity in the canal seen on sagittal sequences only, most likely due to flow artifact. Within the proximal thoracic and lower cervical spine there is mild heterogeneity of the osseous structures but poorly evaluated due to incomplete fat saturation in region. There may be mild compression along the superior endplate at T12, age indeterminate. Dedicated imaging of the cervical region could be performed as clinically warranted. Diffuse enhancement of the T2 vertebral body noted, suspect for either underlying pathologic fracture or diffuse metastatic disease. IMPRESSION: 1. Marked heterogeneity of the thoracic spine with compression deformity at T11 possibly subacute and possible mild compression deformity at T2. These are likely pathologic fractures. Dedicated imaging of the cervical spine could be performed; otherwise, bone scan could further evaluate for diffuse metastatic disease, as clinically warranted. 2. No significant retropulsion or cord compression. No focal significant mass seen in the canal. Dictated by: Dictated on workstation # [id number]
[2017-10-09] VITALS (14 sets, daily range): BP systolic 125–168; BP diastolic 52–84
[2017-10-09] MEDS: CEFEPIME INJECTION 2,000 MG in NS (IVPB) 50 ML IV SCH ×2 (00:39→11:23)
[2017-10-09] MEDS: MAGNESIUM 1 GM/100 ML IVPB 100 ML IV SCH (04:27)
[2017-10-09] MEDS: POTASSIUM CL 10MEQ/50ML IVPB 50 ML IV SCH (04:27)
[2017-10-09] MEDS: KCL 20 MEQ TAB (K-DUR) PO SCH (04:27)
[2017-10-09 04:40] LABS: BASOPHILS % (AUTO) 0 % (0-10); EOSINOPHILS % (AUTO) 0 % (0-10); HEMATOCRIT 30 % (35-52); HEMOGLOBIN 9.5 G/DL (11.5-16.0); LYMPHOCYTES # (AUTO) 1.8 X 10^3 (1.0-4.0); LYMPHOCYTES % (AUTO) 15 % (12-44); MEAN CORPUSCULAR HEMOGLOBIN 27 PG (25-34); MEAN CORPUSCULAR HGB CONC 32 G/DL (32-36); MEAN CORPUSCULAR VOLUME 83 FL (80-99); MEAN PLATELET VOLUME 10.4 FL (7.4-10.4); MONOCYTES # (AUTO) 0.8 X 10^3 (0.0-1.0); MONOCYTES % (AUTO) 7 % (0-12); NEUTROPHILS # (AUTO) 9.3 X 10^3 (1.8-7.8); NEUTROPHILS % (AUTO) 78 % (42-75); PLATELET COUNT 193 10^3/uL (130-400); RED BLOOD COUNT 3.54 10^6/uL (4.35-5.85); RED CELL DISTRIBUTION WIDTH 15.4 % (10.0-14.5); WHITE BLOOD COUNT 11.9 10^3/uL (4.3-11.0)
[2017-10-09 04:50] LABS: BUN/CREATININE RATIO 24; CALCIUM 8.8 MG/DL (8.5-10.1); CARBON DIOXIDE 20 MMOL/L (21-32); CHLORIDE 106 MMOL/L (98-107); CREATININE SERUM 0.85 MG/DL (0.60-1.30); GFR ESTIMATED > 60; GLUCOSE 299 MG/DL (70-105); MAGNESIUM 1.9 MG/DL (1.8-2.4); PHOSPHORUS 2.1 MG/DL (2.3-4.7); POTASSIUM 3.2 MMOL/L (3.6-5.0); SODIUM 138 MMOL/L (135-145)
[2017-10-09] MEDS: NS IV 1000 ML 1,000 ML IV SCH ×2 (05:35→14:05)
--- NOTE | 2017-10-09 06:29 | Pulmonary Progress Note ---
Subjective Time Seen by Provider: 06:59 Subjective/Events-last exam Pt is very confused. Focused Exam Lactate Level 10/07/17 09:42: Lactic Acid Level 0.74 Exam Exam Vital Signs Date Time Temp Pulse Resp B/P (MAP) Pulse Ox O2 Delivery O2 Flow Rate FiO2 10/09/17 06:00 72 14 155/61 (92) 100 Room Air 10/09/17 05:00 70 15 143/52 (82) 99 Room Air 10/09/17 04:00 74 17 142/56 (84) 99 Room Air 10/09/17 04:00 Room Air 10/09/17 03:00 71 19 155/59 (91) 98 Room Air 10/09/17 02:00 71 18 156/67 (96) 97 Room Air 10/09/17 01:00 71 20 95 Room Air 10/09/17 01:00 71 10/09/17 00:00 Room Air 10/09/17 00:00 67 21 141/83 (102) 97 Room Air 10/08/17 23:00 72 14 156/68 (97) 96 Room Air 10/08/17 22:00 76 14 174/68 (103) 95 Room Air 10/08/17 21:00 84 15 180/58 (98) 99 Room Air 10/08/17 20:00 81 20 139/95 (110) 98 Room Air 10/08/17 20:00 Room Air 10/08/17 19:00 72 14 158/77 (104) 95 Room Air 10/08/17 19:00 72 10/08/17 18:00 75 16 150/61 (90) 94 Room Air 10/08/17 17:00 73 26 112/68 (83) 94 Room Air 10/08/17 15:35 97.4 Room Air 10/08/17 15:35 Room Air 10/08/17 15:00 81 159/74 (102) 93 Room Air 10/08/17 14:00 81 37 122/75 (91) 94 Room Air 10/08/17 13:00 80 11 156/95 (115) Room Air 10/08/17 13:00 80 10/08/17 12:30 97.2 Room Air 10/08/17 12:30 Room Air 10/08/17 12:00 85 15 94 Room Air 10/08/17 11:00 75 14 162/67 (98) 97 Room Air 10/08/17 10:00 75 17 154/62 (92) 98 Room Air 10/08/17 09:00 80 24 144/63 (90) 96 Room Air 10/08/17 08:20 Room Air 10/08/17 08:19 98.8 94 Room Air 10/08/17 08:00 84 22 148/60 (89) 98 Room Air 10/08/17 07:00 76 8 137/55 (82) 97 Room Air 10/08/17 07:00 79 I & O 10/09/17 07:00 Intake Total 3300 ml Output Total 3850 ml Balance -550 ml General Appearance: No Apparent Distress, WD/WN, Chronically ill HEENT: PERRL/EOMI, Normal ENT Inspection Neck: Normal Inspection, Non Tender, Supple Respiratory: Chest Non Tender, Lungs Clear, Normal Breath Sounds, No Accessory Muscle Use, No Respiratory Distress Cardiovascular: Regular Rate, Rhythm, No Edema, No Gallop, No JVD, No Murmur, Normal Peripheral Pulses Capillary Refill: Less Than 3 Seconds Gastrointestinal: normal bowel sounds, soft, no organomegaly, no pulsatile mass Extremity: Normal Capillary Refill, Normal Inspection, Normal Range of Motion, Non Tender, No Calf Tenderness, No Pedal Edema, Other (bilateral BKA's) Neurologic/Psychiatric: Alert, Disoriented Skin: Normal Color, Warm/Dry Results Lab Laboratory Tests 10/07/17 09:42 10/08/17 03:20 10/09/17 04:00 Assessment/Plan Assessment/Plan MS changes - metabolic encephalopathy - probably secondary to medications and/ or HTN -PT is much more awake now -MRI no acute change Lung mass vs pneumonia -CT scan reviewed -pt will need repeat CT scan to ensure resolution. -No sputum obtained -IF we can obtain consent for bronch will do tomorrow morning in ICU Malignant HTN - resolved -PT is off nitro gtt currently -Monitor ICU psychosis -Risperdal infiltrate vs mass on CXR Dehydration - NS UTI -Cultures pending -continue Cefepime Electrolyte abnormality -replace Anemia -Monitor CAD s/p Cath BKA bilaterally WAQAS WALTER DO Oct 09, 2017 06:29
[2017-10-09] MEDS: meTOprolol TARTRATE 25 MG (LOPRESSOR) TABLET PO SCH ×2 (08:07→20:46)
[2017-10-09] MEDS: lisINopril 10 MG (PRINIVIL) TABLET PO SCH (08:07)
[2017-10-09] MEDS ORDERED: morphine INJ 4 MG/ML 1 ML (VIAL/SYRINGE) IVP PRN (09:15)
--- NOTE | 2017-10-09 09:41 | Cardiology Progress Note ---
Subjective Date Seen by Provider: Oct 09, 2017 Time Seen by Provider: 09:38 Subjective/Events-last exam Patient is laying down in bed, more awake, confused today, disoriented. Blood pressure is still elevated Review of Systems General: No Chills, No Night Sweats; Fatigue, Malaise; No Appetite, No Other HEENT: No Head Aches, No Visual Changes, No Eye Pain, No Ear Pain, No Dysphasia , No Sinus Congestion, No Post Nasal Drip, No Sore Throat, No Other Pulmonary: No Dyspnea, No Cough, No Pleuritic Chest Pain, No Other Cardiovascular: No: Chest Pain, Palpitations, Orthopnea, Paroxysmal Noc. Dyspnea, Edema, Lt Headedness, Other Focused Exam Lactate Level 10/07/17 09:42: Lactic Acid Level 0.74 Objective-Cardiology Exam Last Set of Vital Signs Vital Signs 10/07/17 10/09/17 10/09/17 17:00 08:00 09:00 Temp 98.4 Pulse 67 Resp 12 B/P (MAP) 162/84 (110) Pulse Ox 100 O2 Delivery Room Air O2 Flow Rate 2.00 Capillary Refill : Less Than 3 Seconds I&O Intake and Output 10/09/17 00:00 Intake Total 3250 ml Output Total 3475 ml Balance -225 ml Intake Oral 900 ml IV Total 2350 ml Output Urine Total 3475 ml General: Alert, Cooperative, Moderate Distress, Other (Disoriented) HEENT: Atraumatic, PERRLA Neck: Supple, No JVD, No Thyromegaly Lungs: Clear to Auscultation, Normal Air Movement Heart: Regular Rate, Normal S1, Normal S2, No Murmurs Abdomen: Normal Bowel Sounds, Soft, No Tenderness, No Hepatosplenomegaly, No Masses Extremities: No Clubbing, No Cyanosis, No Edema, Normal Pulses, No Tenderness/ Swelling Skin: No Rashes, No Breakdown, No Significant Lesion Neuro: Normal Gait, Normal Speech, Strength at 5/5 X4 Ext, Normal Tone, Sensation Intact Psych/Mental Status: Mental Status NL, Mood NL Results Lab Laboratory Tests 10/09/17 04:00 A/P-Cardiology Admission Diagnosis Acute coronary syndrome Change in mental status Malignant hypertension BKA Assessment/Plan Chest pain, EKG changes, suggestive of acute coronary syndrome, cardiac catheterization done showing mild coronary artery disease nonobstructive disease Malignant hypertension, better controlled, I will increase lisinopril and add Norvasc, continue to monitor blood pressure and heart rate Change in mental status, probably hypertensive vs metabolic encephalopathy, continue to monitor, disoriented today, questionable psychosis. Pulmonary nodule, infiltrate versus neoplasm, managed by Dr. Alfred Compression fracture, had an MRI, managed by medical team. Hypokalemia, being replaced CT of the head was negative. Bilateral BKA, last surgery was done last month. Diabetes mellitus. Followed and managed by primary care physician History of noncompliance with medications. Clinical Quality Measures DVT/VTE Risk/Contraindication: Risk Factor Score Per Nursin RFS Level Per Nursing on Admit: 4+=Very High Stroke: Date of last known well: Oct 06, 2017 MEGAN KENDRICK MD Oct 09, 2017 09:41
[2017-10-09] MEDS ORDERED: lisINopril 10 MG (PRINIVIL) TABLET PO NR (09:58)
--- NOTE | 2017-10-09 10:21 | Diagnostic Imaging Report ---
INDICATION: Dyspnea. TECHNIQUE: Single view chest 2:12 AM. CORRELATION STUDY: 10/08/2017 FINDINGS: Heart size and mediastinal configuration generally stable with calcification of the aortic arch. Right-sided central line has been placed via the neck. Tip projects over the low SVC near the cavoatrial junction. Lung ortiz are largely obscured by overlying monitor leads. Minimal wispy like density left mid lung field persisting. IMPRESSION: 1. Interval placement of right IJ central line tip near the cavoatrial junction. 2. Minimal wispy-like density left mid lung field persists. Dictated by: Dictated on workstation # [id number]
--- NOTE | 2017-10-09 10:27 | Progress Note-Hospitalist ---
Subjective HPI/CC On Admission Date Seen by Provider: Oct 09, 2017 Time Seen by Provider: 09:45 CC: Unresponsiveness HPI: This is a 72yoWF [place] patient of Dr Garnett who resides at a NH w/h/o bilateral BKA's remotely who presents to the ER w/unresponsiveness. It was felt she had acute coronary syndrome so she was taken to cardiac catheterization urgently found to have no stenotic coronary vessels so she was admitted to the ICU placed on IV antihypertensive medication due to malignant hypertension and assessed to have hypertensive encephalopathy. Currently she just had a right central line placed by Dr. Triplett and is currently looking for her purse. Rhea the nurse has reassured her she will call the long term to get her purse. Patient is much more responsive today. I checked her labs and meds and updated her on the plan. Subjective/Events-last exam Patient has become aggressive at times Delirium along with vascular dementia is presumed Blood pressure level is much improved Will transfer to fourth floor Risperdal and morphine was given with good resolution of progression Dysphagia noted so patient was placed nothing by mouth we'll have speech eval tomorrow Poor prognosis overall Review of Systems HEENT: Dysphasia Neurological: Confusion Focused Exam Lactate Level 10/07/17 09:42: Lactic Acid Level 0.74 Objective Exam Vital Signs Vital Signs Date Time Temp Pulse Resp B/P (MAP) Pulse Ox O2 Delivery O2 Flow Rate FiO2 10/09/17 11:00 81 34 141/61 (87) 98 Room Air 10/09/17 08:00 98.4 10/07/17 17:00 2.00 Capillary Refill : Less Than 3 Seconds General Appearance: No Apparent Distress, WD/WN, Chronically ill Respiratory: Lungs Clear, Normal Breath Sounds Cardiovascular: Regular Rate, Rhythm, No Edema Neurologic/Psychiatric: Disoriented Skin: Normal Color, Warm/Dry Results/Procedures Lab Laboratory Tests 10/09/17 04:00 Patient resulted labs reviewed. Assessment/Plan Assessment and Plan Assess & Plan/Chief Complaint Encephalopathy Hypertension malignant type requiring IV medication to control New onset dysphagia Delirium Vascular dementia presumed Diabetes mellitus Bilateral BKA's Plan: Transfer to fourth floor Maintain DO NOT RESUSCITATE Nothing by mouth until speech eval Antihypertensive medication Medication for aggression if that recurs Diagnosis/Problems Diagnosis/Problems (1) Hypertensive emergency Status: Resolved (2) Altered mental status Status: Acute Qualifiers: Altered mental status type: unspecified Qualified Codes: R41.82 - Altered mental status, unspecified (3) Encephalopathy acute Status: Acute (4) PVD (peripheral vascular disease) Status: Chronic (5) Amputation of lower limb Status: Chronic (6) Smoker Status: Chronic (7) Renal lithiasis Status: Chronic (8) Type 2 diabetes mellitus Status: Chronic Qualifiers: Diabetes mellitus medical terminologist insulin use: with medical terminologist use Diabetes mellitus complication status: with circulatory complication Diabetes mellitus complication detail: with other circulatory complications Qualified Codes: E11.59 - Type 2 diabetes mellitus with other circulatory complications; Z79.4 - assisted (current) use of insulin (9) Non-compliance Status: Chronic (10) Dysphagia Status: Acute Qualifiers: Dysphagia type: pharyngoesophageal phase Qualified Codes: R13.14 - Dysphagia, pharyngoesophageal phase (11) At risk for aspiration Status: Acute (12) Dementia, vascular Status: Chronic Qualifiers: Dementia behavioral disturbance: with behavioral disturbance Qualified Codes: F01.51 - Vascular dementia with behavioral disturbance (13) Aggression (14) Anemia Status: Chronic Qualifiers: Anemia type: unspecified type Qualified Codes: D64.9 - Anemia, unspecified (15) Hypokalemia Status: Acute (16) Abnormal urinalysis Status: Acute Clinical Quality Measures DVT/VTE Risk/Contraindication: Risk Factor Score Per Nursin RFS Level Per Nursing on Admit: 4+=Very High Stroke: Date of last known well: Oct 06, 2017 HOLLY NEWTON DO Oct 09, 2017 10:27
[2017-10-09] MEDS ORDERED: HALOPERIDOL 5 MG/ML (HALDOL) AMP IM PRN (10:30)
[2017-10-09] MEDS ORDERED: LORazepam INJ 2 MG/ML (ATIVAN) VIAL IVP PRN (10:30)
[2017-10-09] MEDS ORDERED: hydrALAZINE (APRESOLINE) 25 MG TAB PO PRN (10:30)
[2017-10-09] MEDS: amLODIPine 5 MG (NORVASC) TAB PO SCH (11:23)
--- NOTE | 2017-10-09 11:54 | Progress Note ---
Subjective Time Seen by Provider: 11:42 Subjective/Events-last exam Pt seen and examined, appears to be doing better and more alert. Pt denies pain at site of central line. Review of Systems General: No Chills, No Night Sweats Pulmonary: No Dyspnea, No Cough Cardiovascular: No: Chest Pain Focused Exam Lactate Level 10/07/17 09:42: Lactic Acid Level 0.74 Objective Exam Vital Signs Date Time Temp Pulse Resp B/P (MAP) Pulse Ox O2 Delivery O2 Flow Rate FiO2 10/09/17 11:00 81 34 141/61 (87) 98 Room Air 10/09/17 10:00 66 14 166/64 (98) 99 Room Air 10/09/17 09:00 67 12 162/84 (110) 100 Room Air 10/09/17 08:00 Room Air 10/09/17 08:00 98.4 75 21 168/74 (105) 96 Room Air 10/09/17 07:00 72 10/09/17 07:00 73 28 148/66 (93) 100 Room Air 10/09/17 06:00 72 14 155/61 (92) 100 Room Air 10/09/17 05:00 70 15 143/52 (82) 99 Room Air 10/09/17 04:00 74 17 142/56 (84) 99 Room Air 10/09/17 04:00 Room Air 10/09/17 03:00 71 19 155/59 (91) 98 Room Air 10/09/17 02:00 71 18 156/67 (96) 97 Room Air 10/09/17 01:00 71 20 95 Room Air 10/09/17 01:00 71 10/09/17 00:00 Room Air 10/09/17 00:00 67 21 141/83 (102) 97 Room Air 10/08/17 23:00 72 14 156/68 (97) 96 Room Air 10/08/17 22:00 76 14 174/68 (103) 95 Room Air 10/08/17 21:00 84 15 180/58 (98) 99 Room Air 10/08/17 20:00 81 20 139/95 (110) 98 Room Air 10/08/17 20:00 Room Air 10/08/17 19:00 72 14 158/77 (104) 95 Room Air 10/08/17 19:00 72 10/08/17 18:00 75 16 150/61 (90) 94 Room Air 10/08/17 17:00 73 26 112/68 (83) 94 Room Air 10/08/17 15:35 97.4 Room Air 10/08/17 15:35 Room Air 10/08/17 15:00 81 159/74 (102) 93 Room Air 10/08/17 14:00 81 37 122/75 (91) 94 Room Air 10/08/17 13:00 80 11 156/95 (115) Room Air 10/08/17 13:00 80 10/08/17 12:30 97.2 Room Air 10/08/17 12:30 Room Air 10/08/17 12:00 85 15 94 Room Air I & O 10/09/17 07:00 Intake Total 3300 ml Output Total 3850 ml Balance -550 ml Capillary Refill : Less Than 3 Seconds General Appearance: No Apparent Distress, WD/WN, Chronically ill HEENT: PERRL/EOMI, Normal ENT Inspection Neck: Normal Inspection, Non Tender, Supple Respiratory: Chest Non Tender, Lungs Clear, Normal Breath Sounds, No Accessory Muscle Use, No Respiratory Distress Cardiovascular: Regular Rate, Rhythm, No Edema, No JVD, No Murmur, Normal Peripheral Pulses Gastrointestinal: normal bowel sounds, soft, no organomegaly, no pulsatile mass Extremity: Other (bilateral BKA's) Neurologic/Psychiatric: Alert Skin: Normal Color, Warm/Dry Results Lab Laboratory Tests 10/09/17 04:00: White Blood Count 11.9H, Red Blood Count 3.54L, Hemoglobin 9.5L, Hematocrit 30L , Mean Corpuscular Volume 83, Mean Corpuscular Hemoglobin 27, Mean Corpuscular Hemoglobin Concent 32, Red Cell Distribution Width 15.4H, Platelet Count 193, Mean Platelet Volume 10.4, Neutrophils (%) (Auto) 78H, Lymphocytes (%) (Auto) 15 , Monocytes (%) (Auto) 7, Eosinophils (%) (Auto) 0, Basophils (%) (Auto) 0, Neutrophils # (Auto) 9.3H, Lymphocytes # (Auto) 1.8, Monocytes # (Auto) 0.8, Eosinophils # (Auto) 0.0, Basophils # (Auto) 0.0, Sodium Level 138, Potassium Level 3.2L, Chloride Level 106, Carbon Dioxide Level 20L, Anion Gap 12, Blood Urea Nitrogen 20H, Creatinine 0.85, Estimat Glomerular Filtration Rate > 60, BUN /Creatinine Ratio 24, Glucose Level 299H, Calcium Level 8.8, Phosphorus Level 2.1L, Magnesium Level 1.9 Microbiology 10/07/17 Blood Culture - Preliminary, Resulted No growth 10/07/17 Urine Culture - Preliminary, Resulted Staphylococcus epidermidis Sent To [facility] Assessment/Plan Assessment/Plan Assessment/Plan Venous Insufficiency Hypertensive Encephalopathy - improving PVD DM Central line placed and working well; continue max medical care. I will sign off and reconsult if needed. Clinical Quality Measures DVT/VTE Risk/Contraindication: Risk Factor Score Per Nursin RFS Level Per Nursing on Admit: 4+=Very High Stroke: Date of last known well: Oct 06, 2017 MYKEL TREVINO DO Oct 09, 2017 11:54
[2017-10-09] MEDS: risperiDONE 0.25 MG (RisperDAL) TAB PO SCH (20:46)
[2017-10-10] MEDS: NS IV 1000 ML 1,000 ML IV SCH (00:33)
[2017-10-10] MEDS: CEFEPIME INJECTION 2,000 MG in NS (IVPB) 50 ML IV SCH (00:34)
[2017-10-10 00:49] VITALS: BP 131/68
[2017-10-10 03:40] VITALS: BP 127/63
[2017-10-10 06:06] LABS: BASOPHILS % (AUTO) 0 % (0-10); EOSINOPHILS # (AUTO) 0.3 10^3/uL (0.0-0.3); EOSINOPHILS % (AUTO) 2 % (0-10); HEMATOCRIT 33 % (35-52); HEMOGLOBIN 10.6 G/DL (11.5-16.0); LYMPHOCYTES # (AUTO) 3.2 X 10^3 (1.0-4.0); LYMPHOCYTES % (AUTO) 31 % (12-44); MEAN CORPUSCULAR HEMOGLOBIN 27 PG (25-34); MEAN CORPUSCULAR HGB CONC 33 G/DL (32-36); MEAN CORPUSCULAR VOLUME 83 FL (80-99); MEAN PLATELET VOLUME 10.6 FL (7.4-10.4); MONOCYTES # (AUTO) 0.7 X 10^3 (0.0-1.0); MONOCYTES % (AUTO) 7 % (0-12); NEUTROPHILS # (AUTO) 6.2 X 10^3 (1.8-7.8); NEUTROPHILS % (AUTO) 60 % (42-75); PLATELET COUNT 191 10^3/uL (130-400); RED BLOOD COUNT 3.91 10^6/uL (4.35-5.85); RED CELL DISTRIBUTION WIDTH 15.2 % (10.0-14.5); WHITE BLOOD COUNT 10.3 10^3/uL (4.3-11.0)
[2017-10-10 06:27] LABS: ALANINE AMINOTRANSFERASE 12 U/L (0-55); ALBUMIN 3.3 GM/DL (3.2-4.5); ALKALINE PHOSPHATASE 107 U/L (40-136); BILIRUBIN,TOTAL 0.2 MG/DL (0.1-1.0); BUN/CREATININE RATIO 22; CALCIUM 9.1 MG/DL (8.5-10.1); CARBON DIOXIDE 21 MMOL/L (21-32); CHLORIDE 107 MMOL/L (98-107); CREATININE SERUM 0.77 MG/DL (0.60-1.30); GFR ESTIMATED > 60; GLUCOSE 215 MG/DL (70-105); POTASSIUM 2.7 MMOL/L (3.6-5.0); SODIUM 139 MMOL/L (135-145); TOTAL PROTEIN 7.1 GM/DL (6.4-8.2)
[2017-10-10 07:04] VITALS: BP 167/69
--- NOTE | 2017-10-10 07:44 | Progress Note (SOAP) ---
Subjective Time Seen by Provider: 07:25 Subjective/Events-last exam Patient talking better today. Patient feeling better today. Patient states she's having chest pain. When touched sternum patient has pain in this is the pain she has. Patient alert. Patient worried about her person earrings. Thoracic spine x-ray shows probable pathological problems. Potassium 2.7. Tests ordered Focused Exam Lactate Level 10/07/17 09:42: Lactic Acid Level 0.74 Objective Exam Vital Signs Date Time Temp Pulse Resp B/P (MAP) Pulse Ox O2 Delivery O2 Flow Rate FiO2 10/10/17 07:04 96.6 76 20 167/69 (101) 100 Room Air 10/10/17 03:40 68 19 127/63 (84) 99 Room Air 10/10/17 00:49 97.9 62 17 131/68 (89) 97 Room Air 10/09/17 19:36 70 20 125/83 (97) 99 Room Air 10/09/17 14:00 96.0 72 14 146/65 (92) 96 Room Air 10/09/17 12:00 98.8 10/09/17 12:00 Room Air 10/09/17 12:00 76 10 133/59 (83) 100 Room Air 10/09/17 11:00 81 34 141/61 (87) 98 Room Air 10/09/17 10:00 66 14 166/64 (98) 99 Room Air 10/09/17 09:00 67 12 162/84 (110) 100 Room Air 10/09/17 08:00 Room Air 10/09/17 08:00 98.4 75 21 168/74 (105) 96 Room Air I & O 10/10/17 07:00 Intake Total 2440 ml Output Total 4200 ml Balance -1760 ml Capillary Refill : Less Than 3 Seconds General Appearance: No Apparent Distress, Thin HEENT: Normal ENT Inspection Neck: Full Range of Motion, Normal Inspection Respiratory: No Accessory Muscle Use, No Respiratory Distress, Other (Sternum painful to touch) Cardiovascular: Regular Rate, Rhythm, No Murmur Gastrointestinal: non tender, soft Results Lab Laboratory Tests 10/10/17 05:35 Laboratory Tests 10/10/17 05:35: White Blood Count 10.3, Red Blood Count 3.91L, Hemoglobin 10.6L, Hematocrit 33L , Mean Corpuscular Volume 83, Mean Corpuscular Hemoglobin 27, Mean Corpuscular Hemoglobin Concent 33, Red Cell Distribution Width 15.2H, Platelet Count 191, Mean Platelet Volume 10.6H, Neutrophils (%) (Auto) 60, Lymphocytes (%) (Auto) 31 , Monocytes (%) (Auto) 7, Eosinophils (%) (Auto) 2, Basophils (%) (Auto) 0, Neutrophils # (Auto) 6.2, Lymphocytes # (Auto) 3.2, Monocytes # (Auto) 0.7, Eosinophils # (Auto) 0.3, Basophils # (Auto) 0.0, Sodium Level 139, Potassium Level 2.7L, Chloride Level 107, Carbon Dioxide Level 21, Anion Gap 11, Blood Urea Nitrogen 17, Creatinine 0.77, Estimat Glomerular Filtration Rate > 60, BUN/ Creatinine Ratio 22, Glucose Level 215H, Calcium Level 9.1, Total Bilirubin 0.2 , Aspartate Amino Transf (AST/SGOT) 17, Alanine Aminotransferase (ALT/SGPT) 12, Alkaline Phosphatase 107, Total Protein 7.1, Albumin 3.3 Microbiology 10/07/17 Blood Culture - Preliminary, Resulted No growth 10/07/17 Urine Culture - Final, Complete Staphylococcus epidermidis See Comments Assessment/Plan Assessment/Plan Assess & Plan/Chief Complaint Acute mental status changes resolved. Malignant hypertension resolved. UTI. BKA. Diabetes. Thoracic spine showing pathological problems. Hypokalemia. Costochondritis pain when touching chest. Clinical Quality Measures DVT/VTE Risk/Contraindication: Risk Factor Score Per Nursin RFS Level Per Nursing on Admit: 4+=Very High Stroke: Date of last known well: Oct 06, 2017 MIKALA DELVALLE DO Oct 10, 2017 07:44
[2017-10-10] MEDS ORDERED: CATHETER FLUSH 10 ML SYR IV PRN (07:45)
[2017-10-10] MEDS ORDERED: KCL 20 MEQ TAB (K-DUR) PO NR (07:45)
[2017-10-10] MEDS ORDERED: inSUlin ASPART (NovoLOG) 1 UNIT/0.01 ML (CHARGE PER UNIT) SC SCH (07:45)
[2017-10-10] MEDS: amLODIPine 5 MG (NORVASC) TAB PO SCH (08:13)
[2017-10-10] MEDS: lisINopril 10 MG (PRINIVIL) TABLET PO SCH (08:13)
[2017-10-10] MEDS: risperiDONE 0.25 MG (RisperDAL) TAB PO SCH ×2 (08:13→20:36)
[2017-10-10] MEDS: meTOprolol TARTRATE 25 MG (LOPRESSOR) TABLET PO SCH ×2 (08:13→20:36)
--- NOTE | 2017-10-10 08:54 | ST Dysphagia Evaluation ---
Speech Evaluation-General Medical Diagnosis AMS, UTI, SD Onset Date: Nov 06, 2017 Therapy Diagnosis Therapy Diagnosis: Mild Oral Dysphagia Precautions Precautions: Aspiration Precautions/Isolations: Fall Prevention, Standard Precautions Referral Referring Physician: Dr. Cheyanne Eng Reason for Referral: Evaluation/Treatment Clinical Bedside Swallowing Evaluation Medical History Pertinent Medical History: Arthritis, COPD, CVA, DM, Dementia, GERD, HTN, Neuropathy, PVD Bilateral BKA Current History The patient was recently found with altered mental status and transferred from her residence at a [facility] to [facility]. Reviewed History: Yes Speech PLF/Current-Dysphagia Prior Level of Function The patient stated, "I know I choke on things like Doritos so I just don't eat them." The patient denied additional difficulties with any other consistencies and states she consumes a regular diet with thin liquids at home. Subjective The patient was seated upright in bed upon entrance. The patient greeted the clinician and was agreeable to participation in the dysphagia evaluation. The patient has a sitter and a tele-sitter in place. The sitter remained in the hallway throughout the evaluation. The sitter returned to the room at the close of the evaluation. Cognitive Status Patient Orientation: Person, Place, Situation Oral Motor Skills Dentition: Edentalous Ability to Follow Directions: Good The patient is NPO pending the results of the swallowing evaluation. Oral Expression Ability: Mild Impairment (Impulsive, tangential.) Voice Voice Phonatory-Based Quality: Glottal [place] Voice Pitch: Normal Voice Loudness: Normal Face Facial Symmetry: Symmetrical Oral-Facial Assessment Oral-Facial Dentition: Normal Labial Seal Description: Normal Smile: Normal Puff Cheeks: Normal Lingual Protrusion: Normal Lingual ROM: Normal Lingual Strength: Normal Pharynx Velopharyngeal Move.: Normal Volitional Dry Swallow: Yes Dysphagia Evaluation Consistencies Presented: Regular, Thin Liquid, Pureed - Increased (mild) mastication time was noted with solid consistencies. A subsequent thin liquid swallow was effective at clearing the oral cavity of residual material. - No pharyngeal deficits were noted. - No signs/symptoms of aspiration were demonstrated with multiple bolus of thin liquid (teaspoon, cup sip, straw), puree, or solid consistencies tested. The patient's vocal quality remained clear and she denied odynophagia throughout the evaluation. Dietary Recommendations: Regular Liquid Recommendations: Thin Swallowing Precautions: Alternate Liquids/Solids, Small Bites and Sips, Sitting Upright 90 Degrees Dysphagia Evaluation Summary The patient displays minimal to mild oral dysphagia characterized by prolonged mastication time of solids due to her edentulous state. Speech-Plan Treatment Plan Speech Therapy Treatment Plan: Discontinue ST Evaluation, only. Frequency: Modified Program (IRF) (Evaluation, only.) Estimated Hrs Per Day: Other (Evaluation, only.) Rehab Potential: Fair Safety Risks/Education Teaching Recipient: Patient Teaching Methods: Discussion Response to Teaching: Verbalize Understanding, Reinforcement Needed Education Topics Provided: Results, Recommendations (written on board), Plan of Care, Swallowing Strategies Time Speech Therapy Time In: 08:25 Speech Therapy Time Out: 08:40 Total Billed Time: 15 Billed Treatment Time 1, BAIRON RAPHAEL Oct 10, 2017 08:54
--- NOTE | 2017-10-10 09:09 | Cardiology Progress Note ---
Subjective Date Seen by Provider: Oct 10, 2017 Time Seen by Provider: 09:08 Subjective/Events-last exam Patient is laying down in bed, awake, alert and oriented, having chest pain, appear to be pleuritic/musculoskeletal pain. Review of Systems General: No Chills, No Night Sweats, No Fatigue, No Malaise, No Appetite, No Other HEENT: No Head Aches, No Visual Changes, No Eye Pain, No Ear Pain, No Dysphasia , No Sinus Congestion, No Post Nasal Drip, No Sore Throat, No Other Pulmonary: No Dyspnea, No Cough, No Pleuritic Chest Pain, No Other Cardiovascular: No: Chest Pain, Palpitations, Orthopnea, Paroxysmal Noc. Dyspnea, Edema, Lt Headedness, Other Focused Exam Lactate Level 10/07/17 09:42: Lactic Acid Level 0.74 Objective-Cardiology Exam Last Set of Vital Signs Vital Signs 10/07/17 10/10/17 17:00 07:04 Temp 96.6 Pulse 76 Resp 20 B/P (MAP) 167/69 (101) Pulse Ox 100 O2 Delivery Room Air O2 Flow Rate 2.00 Capillary Refill : Less Than 3 Seconds I&O Intake and Output 10/10/17 00:00 Intake Total 2440 ml Output Total 3450 ml Balance -1010 ml Intake Oral 1340 ml IV Total 1100 ml Output Urine Total 3450 ml # Bowel Movements 3 General: Alert, Oriented X3, Cooperative, Other HEENT: Atraumatic, PERRLA Neck: Supple, No JVD, No Thyromegaly Lungs: Clear to Auscultation, Normal Air Movement Heart: Regular Rate, Normal S1, Normal S2, No Murmurs Abdomen: Normal Bowel Sounds, Soft, No Tenderness, No Hepatosplenomegaly, No Masses Extremities: No Clubbing, No Cyanosis, No Edema, Normal Pulses, No Tenderness/ Swelling Skin: No Rashes, No Breakdown, No Significant Lesion Neuro: Normal Gait, Normal Speech, Strength at 5/5 X4 Ext, Normal Tone, Sensation Intact Psych/Mental Status: Mental Status NL, Mood NL Results Lab Laboratory Tests 10/10/17 05:35 A/P-Cardiology Admission Diagnosis Acute coronary syndrome Change in mental status Malignant hypertension BKA Assessment/Plan Chest pain, appear to be pleuritic/musculoskeletal, noncardiac pain Cardiac catheterization done showing mild coronary artery disease nonobstructive disease. Malignant hypertension, I will increase amlodipine to 10 mg daily, continue to monitor blood pressure Change in mental status, probably hypertensive vs metabolic encephalopathy, continue to monitor, disoriented today, questionable psychosis. Pulmonary nodule, infiltrate versus neoplasm, managed by Dr. Alfred Compression fracture, had an MRI, managed by medical team. Hypokalemia, being replaced CT of the head was negative. Bilateral BKA, last surgery was done last month. Diabetes mellitus. Followed and managed by primary care physician History of noncompliance with medications. Clinical Quality Measures DVT/VTE Risk/Contraindication: Risk Factor Score Per Nursin RFS Level Per Nursing on Admit: 4+=Very High Stroke: Date of last known well: Oct 06, 2017 MEGAN KENDRICK MD Oct 10, 2017 09:09
--- NOTE | 2017-10-10 10:08 | Pulmonary Progress Note ---
Subjective Time Seen by Provider: 10:04 Subjective/Events-last exam No complications noted. Exam Exam Vital Signs Date Time Temp Pulse Resp B/P (MAP) Pulse Ox O2 Delivery O2 Flow Rate FiO2 10/10/17 07:04 96.6 76 20 167/69 (101) 100 Room Air 10/10/17 03:40 68 19 127/63 (84) 99 Room Air 10/10/17 00:49 97.9 62 17 131/68 (89) 97 Room Air 10/09/17 19:36 70 20 125/83 (97) 99 Room Air 10/09/17 14:00 96.0 72 14 146/65 (92) 96 Room Air 10/09/17 12:00 98.8 10/09/17 12:00 Room Air 10/09/17 12:00 76 10 133/59 (83) 100 Room Air 10/09/17 11:00 81 34 141/61 (87) 98 Room Air I & O 10/10/17 07:00 Intake Total 2440 ml Output Total 4200 ml Balance -1760 ml General Appearance: No Apparent Distress, Thin HEENT: Normal ENT Inspection Neck: Full Range of Motion, Normal Inspection Respiratory: No Accessory Muscle Use, No Respiratory Distress, Other (Sternum painful to touch) Cardiovascular: Regular Rate, Rhythm, No Murmur Capillary Refill: Less Than 3 Seconds Gastrointestinal: non tender, soft Extremity: Other (bilateral BKA's) Neurologic/Psychiatric: Alert Skin: Normal Color, Warm/Dry Results Lab Laboratory Tests 10/09/17 04:00 10/10/17 05:35 Assessment/Plan Assessment/Plan MS changes - metabolic encephalopathy - probably secondary to medications and/ or HTN - improved Lung mass vs pneumonia -CT scan reviewed -pt will need repeat CT scan to ensure resolution. -No sputum obtained -IF we can obtain consent for bronch will do tomorrow morning in ICU Malignant HTN - resolved -PT is off nitro gtt currently -Monitor ICU psychosis -Risperdal infiltrate vs mass on CXR UTI -Cultures pending -continue Cefepime Electrolyte abnormality -replace Anemia -Monitor CAD s/p Cath BKA bilaterally 232 WAQAS WALTER DO Oct 10, 2017 10:08
[2017-10-10 11:05] VITALS: BP 143/67
[2017-10-10] MEDS: oxyCODONE/APAP 7.5-325 MG (PERCOCET 7.5) TABLET PO PRN (11:11)
[2017-10-10] MEDS: POTASSIUM CL 10MEQ/50ML IVPB 50 ML IV SCH ×4 (11:11→13:15)
[2017-10-10] MEDS: inSUlin ASPART (NovoLOG) 1 UNIT/0.01 ML (CHARGE PER UNIT) SC SCH ×3 (11:12→20:36)
[2017-10-10] MEDS: DOXYCYCLINE 100 MG (VIBRAMYCIN) TABLET PO SCH ×2 (12:18→18:24)
--- NOTE | 2017-10-10 14:28 | Diagnostic Imaging Report ---
INDICATION: Chest lesions. TECHNIQUE: The patient was administered 26.3 mCi of technetium 99m MDP intravenously and whole-body imaging was performed following a three-hour delay. COMPARISON: Correlation is made with the MRI of the thoracic spine performed on 10/08/2017. FINDINGS: There is normal uptake of activity by the axial and appendicular skeleton. There is uptake by the kidneys. The patient appears to have a Aviles catheter that decompresses the bladder. There is a small focus of increased uptake involving a lower left anterior rib, approximately the left fifth anterior rib. Intense uptake in the lower thoracic spine in two adjacent vertebral bodies, approximately T10 and T11, is noted, consistent with probable acute compression fractures. Milder uptake in the upper thoracic and lower cervical spine is noted, indeterminate. There is mild to moderate uptake involving the midshaft of the right femur, indeterminate. There is demonstration of bilateral below-knee amputations. IMPRESSION: There several abnormal foci present. In particular, intense uptake in the lower thoracic spine is seen, likely representing compression fractures. There is also some uptake in the midshaft of the right femur, indeterminate. Milder uptake in the upper thoracic and lower cervical spine is seen. The possibility of metastatic disease cannot be entirely excluded. Dictated by: Dictated on workstation # [id number]
[2017-10-10] MEDS ORDERED: ONDANSETRON 4 MG/2 ML (SDV) Z0FRAN IVP PRN (14:45)
--- NOTE | 2017-10-10 14:57 | Diagnostic Imaging Report ---
INDICATION: Neck pain. COMPARISON: Correlation is made with bone scan from earlier the same day. TIME OF EXAMINATION: 01:31 p.m. FINDINGS: The odontoid is intact. There is significant degenerative disc disease at the C5-C6 and C6-C7 levels, with marked disc space narrowing and marginal spurring. This may account for the uptake noted on bone scan. Prevertebral tissues are normal. No definite osteolytic or blastic lesions are seen. Severe multilevel facet arthropathy is noted. IMPRESSION: Severe lower cervical spondylosis. This may account for the uptake noted on bone scan. No discrete osteolytic or blastic lesion is seen. Dictated by: Dictated on workstation # [id number]
[2017-10-10 15:14] VITALS: BP 155/63
[2017-10-10 19:51] VITALS: BP 151/84
[2017-10-11 00:10] VITALS: BP 153/70
[2017-10-11] MEDS: NS IV 1000 ML 1,000 ML IV SCH ×2 (03:00→17:09)
[2017-10-11 03:35] VITALS: BP 150/69
[2017-10-11 05:39] LABS: BASOPHILS % (AUTO) 0 % (0-10); EOSINOPHILS # (AUTO) 0.5 10^3/uL (0.0-0.3); EOSINOPHILS % (AUTO) 6 % (0-10); HEMATOCRIT 29 % (35-52); HEMOGLOBIN 9.2 G/DL (11.5-16.0); LYMPHOCYTES # (AUTO) 2.3 X 10^3 (1.0-4.0); LYMPHOCYTES % (AUTO) 26 % (12-44); MEAN CORPUSCULAR HEMOGLOBIN 27 PG (25-34); MEAN CORPUSCULAR HGB CONC 32 G/DL (32-36); MEAN CORPUSCULAR VOLUME 82 FL (80-99); MEAN PLATELET VOLUME 9.7 FL (7.4-10.4); MONOCYTES # (AUTO) 0.7 X 10^3 (0.0-1.0); MONOCYTES % (AUTO) 8 % (0-12); NEUTROPHILS # (AUTO) 5.2 X 10^3 (1.8-7.8); NEUTROPHILS % (AUTO) 59 % (42-75); PLATELET COUNT 180 10^3/uL (130-400); RED BLOOD COUNT 3.46 10^6/uL (4.35-5.85); RED CELL DISTRIBUTION WIDTH 15.2 % (10.0-14.5); WHITE BLOOD COUNT 8.8 10^3/uL (4.3-11.0)
[2017-10-11 06:00] LABS: ALANINE AMINOTRANSFERASE 11 U/L (0-55); ALBUMIN 2.8 GM/DL (3.2-4.5); ALKALINE PHOSPHATASE 86 U/L (40-136); BILIRUBIN,TOTAL 0.3 MG/DL (0.1-1.0); BUN/CREATININE RATIO 15; CALCIUM 8.5 MG/DL (8.5-10.1); CARBON DIOXIDE 21 MMOL/L (21-32); CHLORIDE 106 MMOL/L (98-107); CREATININE SERUM 0.71 MG/DL (0.60-1.30); GFR ESTIMATED > 60; GLUCOSE 157 MG/DL (70-105); MAGNESIUM 1.6 MG/DL (1.8-2.4); POTASSIUM 3.4 MMOL/L (3.6-5.0); SODIUM 137 MMOL/L (135-145); TOTAL PROTEIN 5.8 GM/DL (6.4-8.2)
[2017-10-11] MEDS: inSUlin ASPART (NovoLOG) 1 UNIT/0.01 ML (CHARGE PER UNIT) SC SCH ×4 (06:28→20:55)
[2017-10-11] MEDS: DOXYCYCLINE 100 MG (VIBRAMYCIN) TABLET PO SCH ×2 (06:44→17:08)
--- NOTE | 2017-10-11 07:20 | Pulmonary Progress Note ---
Subjective Time Seen by Provider: 07:39 Subjective/Events-last exam Pt appears to be doing better. Exam Exam Vital Signs Date Time Temp Pulse Resp B/P (MAP) Pulse Ox O2 Delivery O2 Flow Rate FiO2 10/11/17 03:35 98.8 73 20 150/69 (96) 97 Room Air 10/11/17 00:10 98.2 73 20 153/70 (97) 96 Room Air 10/10/17 19:51 98.6 78 14 151/84 (106) 99 Room Air 10/10/17 15:14 98.6 69 14 155/63 (93) 97 Room Air 10/10/17 11:05 96.8 66 20 143/67 (92) 97 Room Air I & O 10/11/17 07:00 Intake Total 2260 ml Output Total 4290 ml Balance -2030 ml General Appearance: No Apparent Distress, Anxious, Thin HEENT: Normal ENT Inspection Neck: Full Range of Motion, Normal Inspection Respiratory: No Accessory Muscle Use, No Respiratory Distress, Other (Sternum painful to touch) Cardiovascular: Regular Rate, Rhythm, No Murmur Capillary Refill: Less Than 3 Seconds Gastrointestinal: non tender, soft Extremity: Other (bilateral BKA's) Neurologic/Psychiatric: Alert Skin: Normal Color, Warm/Dry Results Lab Laboratory Tests 10/10/17 05:35 10/11/17 05:30 Assessment/Plan Assessment/Plan MS changes - metabolic encephalopathy - probably secondary to medications and/ or HTN - improved Lung mass vs pneumonia - pt has had no leukocytosis or fever since admission -will try to arrange from bronchoscopy tomorrow morning in ICU -CT scan reviewed -pt will need repeat CT scan to ensure resolution. -Abx have been d/c'd -Bone scan is suggestive of metastatic disease Chronic dementia Malignant HTN - resolved -PT is off nitro gtt currently -Monitor ICU psychosis -Risperdal infiltrate vs mass on CXR UTI -Cultures pending -continue Cefepime Electrolyte abnormality -replace Anemia -Monitor CAD s/p Cath BKA bilaterally I discussed plan of care with patient and Dr. Garnett. They are both on board with plan for bronchoscopy tomorrow AM. Pt is more alert today and is able to sign consent. 233 WAQAS WALTER DO Oct 11, 2017 07:20
[2017-10-11] MEDS ORDERED: KCL 10 MEQ TAB (MICRO K) PO NR (08:00)
[2017-10-11] MEDS ORDERED: MAGNESIUM 1 GM/100 ML IVPB 100 ML IV NR (08:00)
--- NOTE | 2017-10-11 08:02 | Progress Note (SOAP) ---
Subjective Time Seen by Provider: 08:00 Subjective/Events-last exam Patient doing better today patient more alert area Patient realizes she's getting up bronchoscopy tomorrow. Patient knows the date. Patient worried about her purse Objective Exam Vital Signs Date Time Temp Pulse Resp B/P (MAP) Pulse Ox O2 Delivery O2 Flow Rate FiO2 10/11/17 03:35 98.8 73 20 150/69 (96) 97 Room Air 10/11/17 00:10 98.2 73 20 153/70 (97) 96 Room Air 10/10/17 19:51 98.6 78 14 151/84 (106) 99 Room Air 10/10/17 15:14 98.6 69 14 155/63 (93) 97 Room Air 10/10/17 11:05 96.8 66 20 143/67 (92) 97 Room Air I & O 10/11/17 07:00 Intake Total 2260 ml Output Total 4290 ml Balance -2030 ml Capillary Refill : Less Than 3 Seconds General Appearance: No Apparent Distress, WD/WN, Thin HEENT: Normal ENT Inspection Neck: Full Range of Motion Respiratory: Chest Non Tender, No Accessory Muscle Use, No Respiratory Distress Cardiovascular: Regular Rate, Rhythm, No Murmur Gastrointestinal: non tender, soft Results Lab Laboratory Tests 10/10/17 11:01: Glucometer 370H 10/10/17 15:18: Glucometer 141H 10/10/17 20:17: Glucometer 246H 10/11/17 05:30: White Blood Count 8.8, Red Blood Count 3.46L, Hemoglobin 9.2L, Hematocrit 29L, Mean Corpuscular Volume 82, Mean Corpuscular Hemoglobin 27, Mean Corpuscular Hemoglobin Concent 32, Red Cell Distribution Width 15.2H, Platelet Count 180, Mean Platelet Volume 9.7, Neutrophils (%) (Auto) 59, Lymphocytes (%) (Auto) 26, Monocytes (%) (Auto) 8, Eosinophils (%) (Auto) 6, Basophils (%) (Auto) 0, Neutrophils # (Auto) 5.2, Lymphocytes # (Auto) 2.3, Monocytes # (Auto) 0.7, Eosinophils # (Auto) 0.5H, Basophils # (Auto) 0.0, Sodium Level 137, Potassium Level 3.4L, Chloride Level 106, Carbon Dioxide Level 21, Anion Gap 10, Blood Urea Nitrogen 11, Creatinine 0.71, Estimat Glomerular Filtration Rate > 60, BUN/ Creatinine Ratio 15, Glucose Level 157H, Calcium Level 8.5, Magnesium Level 1.6L , Total Bilirubin 0.3, Aspartate Amino Transf (AST/SGOT) 16, Alanine Aminotransferase (ALT/SGPT) 11, Alkaline Phosphatase 86, Total Protein 5.8L, Albumin 2.8L 10/11/17 06:09: Glucometer 172H Microbiology 10/07/17 Blood Culture - Preliminary, Resulted No growth 10/07/17 Urine Culture - Final, Complete Staphylococcus epidermidis See Comments Assessment/Plan Assessment/Plan Assess & Plan/Chief Complaint Acute mental status changes resolved. Malignant hypertension resolved. UTI. BKA. Diabetes. Thoracic spine showing pathological problems. Hypokalemia. Costochondritis pain when touching chest.. . 10/11/17. Acute mental status changes resolved. Malignant hypertension resolved. UTI. BKA. Diabetes. Patient have bronchoscopy tomorrow. Pneumonia versus tumor Clinical Quality Measures DVT/VTE Risk/Contraindication: Risk Factor Score Per Nursin RFS Level Per Nursing on Admit: 4+=Very High Stroke: Date of last known well: Oct 06, 2017 MIKALA DELVALLE DO Oct 11, 2017 08:02
[2017-10-11 08:32] VITALS: BP 157/67
--- NOTE | 2017-10-11 09:35 | Diagnostic Imaging Report ---
INDICATION: Pneumonia. TIME OF EXAM: 8:30 AM Comparison is made with prior chest radiograph from 10/09/2017. FINDINGS: Heart size is stable. There appears to be some infiltrate in the left midlung, similar to prior exam. Right lung is clear. No effusion or pneumothorax is seen. Right IJ line has tip overlying the SVC. IMPRESSION: Left midlung infiltrate, similar to 2 days earlier. Continued followup is recommended to confirm clearing. Dictated by: Dictated on workstation # [id number]
[2017-10-11] MEDS: oxyCODONE/APAP 7.5-325 MG (PERCOCET 7.5) TABLET PO PRN ×2 (09:47→14:12)
[2017-10-11] MEDS: amLODIPine 10 MG (NORVASC) TAB PO SCH (09:47)
[2017-10-11] MEDS: risperiDONE 0.25 MG (RisperDAL) TAB PO SCH ×2 (09:47→20:55)
[2017-10-11] MEDS: meTOprolol TARTRATE 25 MG (LOPRESSOR) TABLET PO SCH (09:48)
[2017-10-11] MEDS: lisINopril 10 MG (PRINIVIL) TABLET PO SCH (09:58)
--- NOTE | 2017-10-11 10:11 | Cardiology Progress Note ---
Subjective Date Seen by Provider: Oct 11, 2017 Time Seen by Provider: 10:09 Subjective/Events-last exam Patient is complaining of significant right sided chest pain, reproducible, tender area on the upper side of her chest Review of Systems General: No Chills, No Night Sweats, No Fatigue, No Malaise, No Appetite, No Other HEENT: No Head Aches, No Visual Changes, No Eye Pain, No Ear Pain, No Dysphasia , No Sinus Congestion, No Post Nasal Drip, No Sore Throat, No Other Pulmonary: Dyspnea; No Cough; Pleuritic Chest Pain; No Other Cardiovascular: Chest Pain; No: Palpitations, Orthopnea, Paroxysmal Noc. Dyspnea, Edema, Lt Headedness, Other Objective-Cardiology Exam Last Set of Vital Signs Vital Signs 10/07/17 10/11/17 17:00 08:32 Temp 98.1 Pulse 83 Resp 18 B/P (MAP) 157/67 (97) Pulse Ox 96 O2 Delivery Room Air O2 Flow Rate 2.00 Capillary Refill : Less Than 3 Seconds I&O Intake and Output 10/11/17 00:00 Intake Total 1460 ml Output Total 5190 ml Balance -3730 ml Intake Oral 1260 ml IV Total 200 ml Output Urine Total 5190 ml General: Alert, Oriented X3, Cooperative, Other HEENT: Atraumatic, PERRLA Neck: Supple, No JVD, No Thyromegaly Lungs: Clear to Auscultation, Normal Air Movement Heart: Regular Rate, Normal S1, Normal S2, No Murmurs Abdomen: Normal Bowel Sounds, Soft, No Tenderness, No Hepatosplenomegaly, No Masses Extremities: No Clubbing, No Cyanosis, No Edema, Normal Pulses, No Tenderness/ Swelling Skin: No Rashes, No Breakdown, No Significant Lesion Neuro: Normal Gait, Normal Speech, Strength at 5/5 X4 Ext, Normal Tone, Sensation Intact Psych/Mental Status: Mental Status NL, Mood NL Results Lab Laboratory Tests 10/11/17 05:30 A/P-Cardiology Admission Diagnosis Acute coronary syndrome Change in mental status Malignant hypertension BKA Assessment/Plan Chest pain, appear to be pleuritic/musculoskeletal, noncardiac pain, reproducible pain mainly on the right upper side of her chest. Questionable trauma, MRI of the chest and CT scan did not report any ribs injury, has compression fracture. Cardiac catheterization done showing mild coronary artery disease nonobstructive disease. Malignant hypertension, still having elevated blood pressure, I will increase metoprolol to 50 mg twice daily and monitor her tolerance and response Change in mental status, probably hypertensive vs metabolic encephalopathy, continue to monitor, disoriented today, questionable psychosis. Pulmonary nodule, infiltrate versus neoplasm, questionable metastases on bone scan, managed by Dr. Alfred Compression fracture, had an MRI, managed by medical team. Hypokalemia, being replaced CT of the head was negative. Bilateral BKA, last surgery was done last month. Diabetes mellitus. Followed and managed by primary care physician History of noncompliance with medications. Dr. Johnson is covering for [place] Clinical Quality Measures DVT/VTE Risk/Contraindication: Risk Factor Score Per Nursin RFS Level Per Nursing on Admit: 4+=Very High Stroke: Date of last known well: Oct 06, 2017 MEGAN KENDRICK MD Oct 11, 2017 10:11
[2017-10-11 11:11] LABS: BILIRUBIN,URINE NEGATIVE (NEGATIVE); GLUCOSE, URINE (UA) 3+ (NEGATIVE); KETONES,URINE NEGATIVE (NEGATIVE); LEUKOCYTE ESTERASE ,URINE 3+ (NEGATIVE); NITRITE,URINE NEGATIVE (NEGATIVE); PH,URINE 7 (5-9); PROTEIN,URINE 3+ (NEGATIVE); UROBILINOGEN,URINE NORMAL (NORMAL)
[2017-10-11 11:14] LABS: CLARITY,URINE SL CLOUDY; COLOR,URINE YELLOW
[2017-10-11 11:15] LABS: BACTERIA,URINE NEGATIVE /HPF; YEAST,URINE MODERATE /HPF
[2017-10-11 12:00] VITALS: BP 131/80
[2017-10-11 16:39] VITALS: BP 116/57
[2017-10-11 20:30] VITALS: BP 128/72
[2017-10-11] MEDS: meTOprolol TARTRATE 50 MG (LOPRESSOR) TAB PO SCH (20:55)
[2017-10-12 00:50] VITALS: BP 136/68
[2017-10-12 04:26] VITALS: BP 139/71
[2017-10-12 05:54] LABS: HEMOGLOBIN 9.5 G/DL (11.5-16.0); MEAN PLATELET VOLUME 10.2 FL (7.4-10.4); RED BLOOD COUNT 3.48 10^6/uL (4.35-5.85); RED CELL DISTRIBUTION WIDTH 15.3 % (10.0-14.5); WHITE BLOOD COUNT 10.4 10^3/uL (4.3-11.0)
[2017-10-12] MEDS ORDERED: fentaNYL INJECTION 100 MCG/2 ML AMP ONE (06:05)
[2017-10-12] MEDS ORDERED: MIDAZOLAM 5 MG/5 ML (VERSED) VIAL ONE (06:05)
[2017-10-12] MEDS ORDERED: MIDAZOLAM 5 MG/5 ML (VERSED) VIAL IVP ONE (06:15)
[2017-10-12] MEDS ORDERED: fentaNYL INJECTION 100 MCG/2 ML AMP IVP ONE ×3 (06:15)
[2017-10-12] MEDS ORDERED: MIDAZOLAM 2 MG/2 ML (VERSED) VIAL IM ONE (06:15)
[2017-10-12 06:21] LABS: BUN/CREATININE RATIO 19; CALCIUM 8.5 MG/DL (8.5-10.1); CARBON DIOXIDE 19 MMOL/L (21-32); CHLORIDE 110 MMOL/L (98-107); CREATININE SERUM 0.67 MG/DL (0.60-1.30); GFR ESTIMATED > 60; GLUCOSE 162 MG/DL (70-105); MAGNESIUM 1.6 MG/DL (1.8-2.4); POTASSIUM 3.8 MMOL/L (3.6-5.0); SODIUM 138 MMOL/L (135-145)
[2017-10-12] MEDS ORDERED: NS IV 500 ML 500 ML ONE (06:33)
[2017-10-12] MEDS: NS IV 500 ML 500 ML IV SCH ×2 (06:41→23:25)
[2017-10-12] MEDS ORDERED: NS IV 500 ML 500 ML IV ONE (06:45)
[2017-10-12] MEDS: inSUlin ASPART (NovoLOG) 1 UNIT/0.01 ML (CHARGE PER UNIT) SC SCH ×4 (06:46→20:47)
[2017-10-12] MEDS: DOXYCYCLINE 100 MG (VIBRAMYCIN) TABLET PO SCH ×2 (07:31→16:43)
--- NOTE | 2017-10-12 07:34 | Pulmonary Progress Note ---
Subjective Time Seen by Provider: 07:34 Subjective/Events-last exam No complications noted. Pt is s/p bronchoscopy Exam Exam Vital Signs Date Time Temp Pulse Resp B/P (MAP) Pulse Ox O2 Delivery O2 Flow Rate FiO2 10/12/17 04:26 98.9 82 18 139/71 (93) 96 Room Air 10/12/17 00:50 99.1 73 18 136/68 (90) 97 Room Air 10/11/17 20:30 98.0 74 18 128/72 (90) 98 Room Air 10/11/17 16:39 98.4 71 18 116/57 (76) 96 Room Air 10/11/17 12:00 98.0 68 16 131/80 (97) 97 Room Air 10/11/17 08:32 98.1 83 18 157/67 (97) 96 Room Air I & O 10/12/17 07:00 Intake Total 2370 ml Output Total 2050 ml Balance 320 ml General Appearance: Severe Distress, Thin HEENT: PERRL/EOMI, Normal ENT Inspection Neck: Normal Inspection, Supple Respiratory: Crackles, Decreased Breath Sounds Cardiovascular: Regular Rate, Rhythm, No JVD, Systolic Murmur, Gallop/S3 Capillary Refill: Less Than 3 Seconds Gastrointestinal: non tender, soft Extremity: Normal Inspection, Non Tender, Other (Bilateral BKA) Neurologic/Psychiatric: Other (Lethargic, disoriented, moving extremities) Skin: Normal Color, Warm/Dry Results Lab Laboratory Tests 10/11/17 05:30 10/12/17 05:40 Assessment/Plan Assessment/Plan MS changes - metabolic encephalopathy - probably secondary to medications and/ or HTN - improved Lung mass vs pneumonia - s/p bronch - no endobronchial mass - she did have thick yellow sputum -CT scan reviewed -pt will need repeat CT scan to ensure resolution. -Abx have been d/c'd -Bone scan is suggestive of metastatic disease Chronic dementia Malignant HTN - resolved -PT is off nitro gtt currently -Monitor ICU psychosis -Risperdal infiltrate vs mass on CXR Electrolyte abnormality -replace Anemia -Monitor CAD s/p Cath BKA bilaterally 233 WAQAS WALTER DO Oct 12, 2017 07:34
--- NOTE | 2017-10-12 07:36 | Pulmonary Procedures ---
Pulmonary Procedures Date of Procedure Date of Service: Oct 12, 2017 Bronch Bronchoscopy with bronchoalveolar lavage (BAL), transbronchial washes and, brushes. Preop DX left lung infiltration Postop DX: same no endobronchial mass Complications: none After informed consent obtained and formal time out pt was sedated using Fentanyl and Versed. Bronchoscope was advanced through the nare and vocal cords. 1% lidocaine was used to anesthetize vocal cords, epiglottis, heraclio, and left/right main stem bronchus. An anatomical tour was undertaken down to the segmental bronchi bilaterally. No endobronchial lesions noted. From the Lingula a bronchoalveolar lavage (BAL), transbronchial washes and, brushes were obtained. Pt tolerated procedure well. No complications noted. Stat CXR is pending. WAQAS WALTER DO Oct 12, 2017 07:36
[2017-10-12] MEDS: amLODIPine 10 MG (NORVASC) TAB PO SCH (08:13)
[2017-10-12] MEDS: lisINopril 10 MG (PRINIVIL) TABLET PO SCH (08:13)
[2017-10-12] MEDS: meTOprolol TARTRATE 50 MG (LOPRESSOR) TAB PO SCH ×2 (08:13→20:47)
[2017-10-12] MEDS: risperiDONE 0.25 MG (RisperDAL) TAB PO SCH ×2 (08:13→20:46)
[2017-10-12 08:46] VITALS: BP 165/71
[2017-10-12] MEDS: oxyCODONE/APAP 7.5-325 MG (PERCOCET 7.5) TABLET PO PRN (09:37)
--- NOTE | 2017-10-12 10:59 | Progress Note-Hospitalist ---
Subjective HPI/CC On Admission Date Seen by Provider: Oct 12, 2017 Time Seen by Provider: 11:00 CC: Unresponsiveness HPI: This is a 72yoWF [place] patient of Dr Garnett who resides at a NH w/h/o bilateral BKA's remotely who presents to the ER w/unresponsiveness. It was felt she had acute coronary syndrome so she was taken to cardiac catheterization urgently found to have no stenotic coronary vessels so she was admitted to the ICU placed on IV antihypertensive medication due to malignant hypertension and assessed to have hypertensive encephalopathy. Currently she just had a right central line placed by Dr. Triplett and is currently looking for her purse. Rhea the nurse has reassured her she will call [facility] to get [facility]. Patient is much more responsive today. I checked her labs and meds and updated her on the plan. Subjective/Events-last exam Patient doing well today Discharge planning for tomorrow back to the [facility] Status post bronchoscopy removing mucous plugging and a great deal of mucus so unsure of the status of the mass on CT scan and will have close follow-up for that but the bone scan did show multiple areas of possible metastatic disease Labs stable Catheter will be removed today Right central line in the IJ will be removed prior to discharge Bowels are moving Eating and drinking well Review of Systems General: Malaise Objective Exam Vital Signs Vital Signs Date Time Temp Pulse Resp B/P (MAP) Pulse Ox O2 Delivery O2 Flow Rate FiO2 10/12/17 08:46 97.3 69 20 165/71 (102) 98 Room Air 10/07/17 17:00 2.00 Capillary Refill : Less Than 3 Seconds General Appearance: No Apparent Distress, WD/WN, Chronically ill Respiratory: Chest Non Tender, Lungs Clear, Normal Breath Sounds, No Accessory Muscle Use, No Respiratory Distress, Decreased Breath Sounds Cardiovascular: Regular Rate, Rhythm, No Edema, No Gallop, No JVD, No Murmur, Normal Peripheral Pulses Neurologic/Psychiatric: Alert, Oriented x3, No Motor/Sensory Deficits, Normal Mood/Affect Results/Procedures Lab Laboratory Tests 10/12/17 05:40 Patient resulted labs reviewed. Assessment/Plan Assessment and Plan Assess & Plan/Chief Complaint Encephalopathy Hypertension malignant type s/p requiring IV medication to control New onset dysphagia now resolved Delirium now resolved Vascular dementia presumed Diabetes mellitus Bilateral BKA's Lung mass but no mass seen on bronchoscopy per Dr Alfred Multiple foci on bone scan noted so possible mets? Plan: Maintain DO NOT RESUSCITATE Antihypertensive medication DC catheter DC NH tomorrow per PCP Diagnosis/Problems Diagnosis/Problems (1) Hypertensive emergency Status: Resolved (2) Altered mental status Status: Resolved Qualifiers: Altered mental status type: unspecified Qualified Codes: R41.82 - Altered mental status, unspecified (3) Encephalopathy acute Status: Resolved (4) PVD (peripheral vascular disease) Status: Chronic (5) Amputation of lower limb Status: Chronic (6) Smoker Status: Chronic (7) Renal lithiasis Status: Chronic (8) Type 2 diabetes mellitus Status: Chronic Qualifiers: Diabetes mellitus half-way insulin use: with half-way use Diabetes mellitus complication status: with circulatory complication Diabetes mellitus complication detail: with other circulatory complications Qualified Codes: E11.59 - Type 2 diabetes mellitus with other circulatory complications; Z79.4 - retirement (current) use of insulin (9) Non-compliance Status: Chronic (10) Dysphagia Status: Resolved Qualifiers: Dysphagia type: pharyngoesophageal phase Qualified Codes: R13.14 - Dysphagia, pharyngoesophageal phase (11) At risk for aspiration Status: Resolved (12) Dementia, vascular Status: Chronic Qualifiers: Dementia behavioral disturbance: with behavioral disturbance Qualified Codes: F01.51 - Vascular dementia with behavioral disturbance (13) Aggression Status: Resolved (14) Anemia Status: Chronic Qualifiers: Anemia type: unspecified type Qualified Codes: D64.9 - Anemia, unspecified (15) Hypokalemia Status: Resolved (16) Abnormal urinalysis Status: Resolved (17) Lung mass Status: Acute Assessment & Plan: No mass noted on bronch so will need close imaging follow up (18) Abnormal radionuclide bone scan Status: Acute Assessment & Plan: Unsure if foci are metastatic disease? Clinical Quality Measures DVT/VTE Risk/Contraindication: Risk Factor Score Per Nursin RFS Level Per Nursing on Admit: 4+=Very High Stroke: Date of last known well: Oct 06, 2017 HOLLY NEWTON DO Oct 12, 2017 10:59
[2017-10-12] MEDS: NS IV 1000 ML 1,000 ML IV SCH (12:22)
[2017-10-12 12:30] VITALS: BP 130/67
--- NOTE | 2017-10-12 13:10 | Cardiology Progress Note ---
Cardiology SOAP Progress Note Subjective: No cardiac complaints Objective: I&O/Vital Signs 10/12/17 10/12/17 10/12/17 10/12/17 04:26 05:54 06:11 08:00 Temp 98.9 Pulse 82 Resp 18 16 B/P (MAP) 139/71 (93) Pulse Ox 96 97 98 O2 Delivery Room Air Room Air Room Air 10/12/17 08:46 Temp 97.3 Pulse 69 Resp 20 B/P (MAP) 165/71 (102) Pulse Ox 98 O2 Delivery Room Air 10/12/17 00:00 Intake Total 2100 ml Output Total 1500 ml Balance 600 ml Weight (Pounds): 125 Weight (Ounces): 12.8 Weight (Calculated Kilograms): 57.233185 Constitutional: AAO x 3 Respiratory: No accessory muscle use, No respiratory distress, No chest tender , No chest expansion is symmetric; chest is bilaterally symmetric; No lungs clear to percussion; lungs clear to auscultation; No crackles, No rhonchi, No rales, No stridor, No wheezing, No pleural rub, No other Cardiovascular: regular rate-rhythm; No irregularly irregular, No extra beats, No parasternal heave is noted, No JVD, No edema, No bradycardia, No tachycardia , No point of maximal impulse, No cardiac thrills are palpable; S1 and S2; No gallop/S3, No gallop/S4, No diastolic murmur, No systolic murmur, No friction rub, No click, No other Gastrointestional: No tender, No soft, No round, No distended, No pulsatile mass, No organomegaly, No guarding, No rebound, No tenderness, No hernia, No mass, No audible bowel sounds, No abnormal bowel sounds, No abdominal bruits, No spleenomegaly, No other Extremities: No normal range of motion, No non-tender, No normal inspection, No pedal edema, No calf tenderness, No normal capillary refill, No pelvis stable , No calf tenderness, No inflammation, No pedal edema, No slow capillary refill , No swelling, No other, No abrasion, No clubbing, No cyanosis, No ecchymosis, No laceration, No no lower extremity edema bilateral, No significant edema, No tenderness, No wound Neurologic/Psychiatric: no motor/sensory deficits, alert, normal mood/affect, oriented x 3 Skin: No normal color, No warm/dry, No cyanosis, No cool, No diaphoresis, No damp, No ecchymosis, No jaundice, No mottled, No pallor, No rash, No tattoos/ piercings, No ulcerations, No rash on exposed areas, No ulcerations on exposed areas, No other Results/Procedures: Labs Laboratory Tests 10/11/17 16:44: Glucometer 163H 10/11/17 20:27: Glucometer 423*H 10/12/17 00:46: Glucometer 67L 10/12/17 01:34: Glucometer 116H 10/12/17 05:40: White Blood Count 10.4, Red Blood Count 3.48L, Hemoglobin 9.5L, Hematocrit 29L, Mean Corpuscular Volume 83, Mean Corpuscular Hemoglobin 27, Mean Corpuscular Hemoglobin Concent 33, Red Cell Distribution Width 15.3H, Platelet Count 171, Mean Platelet Volume 10.2, Sodium Level 138, Potassium Level 3.8, Chloride Level 110H, Carbon Dioxide Level 19L, Anion Gap 9, Blood Urea Nitrogen 13, Creatinine 0.67, Estimat Glomerular Filtration Rate > 60, BUN/Creatinine Ratio 19, Glucose Level 162H, Calcium Level 8.5, Magnesium Level 1.6L 10/12/17 11:10: Glucometer 281H Microbiology 10/07/17 Blood Culture - Preliminary, Resulted No growth 10/12/17 Gram Stain, Resulted Pending 10/12/17 Bronchial Culture - Preliminary, Resulted 10/12/17 Fungal Culture, Resulted Pending 10/11/17 Urine Culture - Final, Complete Yeast species A/P: Assessment/Dx: Admission Diagnosis Acute coronary syndrome Change in mental status Malignant hypertension BKA Plan: Chest pain, appear to be pleuritic/musculoskeletal, noncardiac pain, reproducible pain mainly on the right upper side of her chest. Questionable trauma, MRI of the chest and CT scan did not report any ribs injury, has compression fracture. Cardiac catheterization done by Dr. Mclaughlin showing mild coronary artery disease nonobstructive disease. Severe hypertension, still having elevated blood pressure, on metoprolol 50 mg twice daily. I will add amlodipine 5 mg daily. Change in mental status, resolved Pulmonary nodule, infiltrate versus neoplasm, questionable metastases on bone scan, managed by Dr. Alfred Compression fracture, had an MRI, managed by medical team. Hypokalemia, being replaced CT of the head was negative. Bilateral BKA, last surgery was done last month. Diabetes mellitus. Followed and managed by primary care physician History of noncompliance with medications. Thank you for your consultation. Please call me if you have any questions. Jazz Johnson MD, FACP, FACC, FSCAI, FHRS, CCDS Interventional Cardiology Cardiac Electrophysiology Vascular Medicine and Endovascular Interventions Clinical Quality Measures Stroke: Date of last known well: Oct 06, 2017 Tanesha JOHNSON MD Oct 12, 2017 13:10
[2017-10-12 16:27] VITALS: BP 122/60
[2017-10-13] VITALS: BP 146/68
[2017-10-13] MEDS: oxyCODONE/APAP 7.5-325 MG (PERCOCET 7.5) TABLET PO PRN ×2 (00:35→08:57)
[2017-10-13] MEDS: NS IV 1000 ML 1,000 ML IV SCH (05:22)
[2017-10-13] MEDS: inSUlin ASPART (NovoLOG) 1 UNIT/0.01 ML (CHARGE PER UNIT) SC SCH ×2 (05:46→11:22)
[2017-10-13] MEDS: DOXYCYCLINE 100 MG (VIBRAMYCIN) TABLET PO SCH (06:01)
--- NOTE | 2017-10-13 07:09 | Pulmonary Progress Note ---
Subjective Time Seen by Provider: 07:08 Subjective/Events-last exam No complications noted. Exam Exam Vital Signs Date Time Temp Pulse Resp B/P (MAP) Pulse Ox O2 Delivery O2 Flow Rate FiO2 10/13/17 00:00 97.3 69 20 146/68 (94) 97 Room Air 10/12/17 20:46 Room Air 10/12/17 16:27 96.8 70 18 122/60 (80) 98 Room Air 10/12/17 12:30 97.1 68 22 130/67 (88) 96 Room Air 10/12/17 08:46 97.3 69 20 165/71 (102) 98 Room Air 10/12/17 08:00 98 Room Air I & O 10/13/17 07:00 Intake Total 2780 ml Output Total 302 ml Balance 2478 ml General Appearance: No Apparent Distress, WD/WN, Chronically ill HEENT: PERRL/EOMI, Normal ENT Inspection Neck: Normal Inspection, Supple Respiratory: Chest Non Tender, Lungs Clear, Normal Breath Sounds, No Accessory Muscle Use, No Respiratory Distress, Decreased Breath Sounds Cardiovascular: Regular Rate, Rhythm, No Edema, No Gallop, No JVD, No Murmur, Normal Peripheral Pulses Capillary Refill: Less Than 3 Seconds Gastrointestinal: non tender, soft Extremity: Normal Inspection, Non Tender, Other (Bilateral BKA) Neurologic/Psychiatric: Alert, Oriented x3, No Motor/Sensory Deficits, Normal Mood/Affect Skin: Normal Color, Warm/Dry Results Lab Laboratory Tests 10/12/17 05:40 Assessment/Plan Assessment/Plan MS changes - metabolic encephalopathy - probably secondary to medications and/ or HTN - improved Lung mass vs pneumonia - s/p bronch - no endobronchial mass - she did have thick yellow sputum -CT scan reviewed -pt will need repeat CT scan to ensure resolution. -Abx have been d/c'd -Bone scan is suggestive of metastatic disease Chronic dementia Malignant HTN - resolved -PT is off nitro gtt currently -Monitor ICU psychosis -Risperdal infiltrate vs mass on CXR Electrolyte abnormality -replace Anemia -Monitor CAD s/p Cath BKA bilaterally 232 WAQAS WALTER DO Oct 13, 2017 07:09
[2017-10-13 08:10] VITALS: BP 152/71
--- NOTE | 2017-10-13 08:17 | Progress Note (SOAP) ---
Subjective Time Seen by Provider: 08:15 Subjective/Events-last exam Patient stable her Patient breathing good. Patient wanted not to go to any halfway. Patient has both legs amputated. Daughter does not want patient. administrative services director to speak to patient Objective Exam Vital Signs Date Time Temp Pulse Resp B/P (MAP) Pulse Ox O2 Delivery O2 Flow Rate FiO2 10/13/17 08:10 98.6 67 20 152/71 (98) 98 Room Air 10/13/17 07:14 Room Air 10/13/17 00:00 97.3 69 20 146/68 (94) 97 Room Air 10/12/17 20:46 Room Air 10/12/17 16:27 96.8 70 18 122/60 (80) 98 Room Air 10/12/17 12:30 97.1 68 22 130/67 (88) 96 Room Air 10/12/17 08:46 97.3 69 20 165/71 (102) 98 Room Air I & O 10/13/17 07:00 Intake Total 2780 ml Output Total 302 ml Balance 2478 ml Capillary Refill : Less Than 3 Seconds General Appearance: No Apparent Distress, Thin HEENT: Normal ENT Inspection Neck: Normal Inspection Respiratory: Chest Non Tender, Lungs Clear, No Accessory Muscle Use, No Respiratory Distress Cardiovascular: Regular Rate, Rhythm, No Murmur Gastrointestinal: non tender, soft Results Lab Laboratory Tests 10/12/17 11:10: Glucometer 281H 10/12/17 16:36: Glucometer 290H 10/12/17 20:31: Glucometer 195H 10/13/17 05:43: Glucometer 197H Microbiology 10/07/17 Blood Culture - Final, Complete No growth 10/12/17 Gram Stain, Resulted Pending 10/12/17 Bronchial Culture - Preliminary, Resulted 10/12/17 Fungal Culture, Resulted Pending 10/11/17 Urine Culture - Final, Complete Yeast species Assessment/Plan Assessment/Plan Assess & Plan/Chief Complaint Acute mental status changes resolved. Malignant hypertension resolved. UTI. BKA. Diabetes. Thoracic spine showing pathological problems. Hypokalemia. Costochondritis pain when touching chest.. . 10/11/17. Acute mental status changes resolved. Malignant hypertension resolved. UTI. BKA. Diabetes. Patient have bronchoscopy tomorrow. Pneumonia versus tumor. . 10/12/17. Pneumonia. Diabetes. BKA. Would like to discharge patient today Clinical Quality Measures DVT/VTE Risk/Contraindication: Risk Factor Score Per Nursin RFS Level Per Nursing on Admit: 4+=Very High Stroke: Date of last known well: Oct 06, 2017 MIKALA DELVALLE DO Oct 13, 2017 08:17
[2017-10-13] MEDS: risperiDONE 0.25 MG (RisperDAL) TAB PO SCH (08:54)
[2017-10-13] MEDS: amLODIPine 10 MG (NORVASC) TAB PO SCH (08:55)
[2017-10-13] MEDS: meTOprolol TARTRATE 50 MG (LOPRESSOR) TAB PO SCH (08:55)
[2017-10-13] MEDS ORDERED: lisINopril 40 MG (PRINIVIL) TABLET PO SCH (09:00)
[2017-10-13] MEDS ORDERED: lisINopril 10 MG (PRINIVIL) TABLET PO SCH (09:00)
[2017-10-13 09:46] LABS: BILIRUBIN,URINE NEGATIVE (NEGATIVE); CLARITY,URINE SLIGHTLY CLOUDY; COLOR,URINE YELLOW; GLUCOSE, URINE (UA) 2+ (NEGATIVE); KETONES,URINE NEGATIVE (NEGATIVE); LEUKOCYTE ESTERASE ,URINE 3+ (NEGATIVE); NITRITE,URINE NEGATIVE (NEGATIVE); PH,URINE 6 (5-9); PROTEIN,URINE 4+ (NEGATIVE); UROBILINOGEN,URINE NORMAL (NORMAL)
[2017-10-13 10:06] LABS: BACTERIA,URINE TRACE /HPF; WBC,URINE 25-50 /HPF; YEAST,URINE FEW /HPF
--- NOTE | 2017-10-13 11:19 | Diagnostic Imaging Report ---
INDICATION: Chest pain. TECHNIQUE: Single view chest 10:19 AM. CORRELATION STUDY: 10/11/2017 FINDINGS: Right IJ central line unchanged. Heart size, mediastinum and vasculature generally stable. Calcification of the aortic arch. Very slight fullness of the left hilum. Rounded density in the left mid lung persists. IMPRESSION: 1. Continued density lateral left mid lung. While conceivably could be reflective of a rounded area of pneumonia, neoplasm is in the differential and continued followup evaluation is recommended. Slight fullness left hilum may be reflective of some lymphadenopathy. Dictated by: Dictated on workstation # [id number]
[2017-10-13 15:27] VITALS: BP 152/71
--- NOTE | 2017-10-13 20:51 | Cardiology Progress Note ---
Cardiology SOAP Progress Note Subjective: patient seen at 4 p.m. No cardiac complaints. Objective: I&O/Vital Signs 10/13/17 15:27 Pulse 67 Resp 20 B/P (MAP) 152/71 Pulse Ox 98 O2 Delivery Room Air 10/13/17 00:00 Intake Total 980 ml Output Total 302 ml Balance 678 ml Weight (Pounds): 124 Weight (Ounces): 3.0 Weight (Calculated Kilograms): 56.489246 Constitutional: AAO x 3 Respiratory: No accessory muscle use, No respiratory distress, No chest tender , No chest expansion is symmetric; chest is bilaterally symmetric; No lungs clear to percussion; lungs clear to auscultation; No crackles, No rhonchi, No rales, No stridor, No wheezing, No pleural rub, No other Cardiovascular: regular rate-rhythm; No irregularly irregular, No extra beats, No parasternal heave is noted, No JVD, No edema, No bradycardia, No tachycardia , No point of maximal impulse, No cardiac thrills are palpable; S1 and S2; No gallop/S3, No gallop/S4, No diastolic murmur, No systolic murmur, No friction rub, No click, No other Gastrointestional: No tender, No soft, No round, No distended, No pulsatile mass, No organomegaly, No guarding, No rebound, No tenderness, No hernia, No mass, No audible bowel sounds, No abnormal bowel sounds, No abdominal bruits, No spleenomegaly, No other Extremities: No normal range of motion, No non-tender, No normal inspection, No pedal edema, No calf tenderness, No normal capillary refill, No pelvis stable , No calf tenderness, No inflammation, No pedal edema, No slow capillary refill , No swelling, No other, No abrasion, No clubbing, No cyanosis, No ecchymosis, No laceration, No no lower extremity edema bilateral, No significant edema, No tenderness, No wound Neurologic/Psychiatric: no motor/sensory deficits, alert, normal mood/affect, oriented x 3 Skin: No normal color, No warm/dry, No cyanosis, No cool, No diaphoresis, No damp, No ecchymosis, No jaundice, No mottled, No pallor, No rash, No tattoos/ piercings, No ulcerations, No rash on exposed areas, No ulcerations on exposed areas, No other Results/Procedures: Labs Laboratory Tests 10/13/17 05:43: Glucometer 197H 10/13/17 09:30: Urine Color YELLOW, Urine Clarity SLIGHTLY CLOUDY, Urine pH 6, Urine Specific [place] 1.010L, Urine Protein 4+, Urine Glucose (UA) 2+H, Urine Ketones NEGATIVE , Urine Nitrite NEGATIVE, Urine Bilirubin NEGATIVE, Urine Urobilinogen NORMAL, Urine Leukocyte Esterase 3+H, Urine RBC (Auto) 2+H, Urine RBC 2-5H, Urine WBC 25 -50H, Urine Squamous Epithelial Cells 2-5, Urine Crystals NONE, Urine Bacteria TRACE, Urine Casts NONE, Urine Mucus NEGATIVE, Urine Yeast FEWH, Urine Culture Indicated YES 10/13/17 10:57: Glucometer 220H Microbiology 10/07/17 Blood Culture - Final, Complete No growth 10/12/17 Mycobacterial Culture - Preliminary, Resulted 10/13/17 Urine Culture - Preliminary, Resulted Sent To [facility] A/P: Assessment/Dx: Admission Diagnosis Acute coronary syndrome Change in mental status Malignant hypertension BKA Plan: Chest pain, appear to be pleuritic/musculoskeletal, noncardiac pain, reproducible pain mainly on the right upper side of her chest. Questionable trauma, MRI of the chest and CT scan did not report any ribs injury, has compression fracture. Cardiac catheterization done by Dr. Mclaughlin showing mild coronary artery disease nonobstructive disease. Severe hypertension, continue metoprolol, amlodipine, lisinopril, doxazosin. Change in mental status, resolved Pulmonary nodule, infiltrate versus neoplasm, questionable metastases on bone scan, managed by Dr. Alfred Compression fracture, had an MRI, managed by medical team. Hypokalemia, being replaced CT of the head was negative. Bilateral BKA, last surgery was done last month. Diabetes mellitus. Followed and managed by primary care physician History of noncompliance with medications. Thank you for your consultation. Please call me if you have any questions. Jazz Johnson MD, FACP, FACC, FSCAI, FHRS, CCDS Interventional Cardiology Cardiac Electrophysiology Vascular Medicine and Endovascular Interventions Clinical Quality Measures Stroke: Date of last known well: Oct 06, 2017 Tanseha JOHNSON MD Oct 13, 2017 20:51
[2017-10-13] MEDS ORDERED: MENTHOL/ZINC OXIDE (CALMOSEPTINE) 113 GM TUBE TOP SCH (21:00)
--- NOTE | 2017-10-14 07:27 | Discharge Summary ---
Diagnosis/Chief Complaint Date of Admission Date of Discharge Discharge Date: Oct 13, 2017 Discharge Time: 07:25 Discharge Diagnosis Altered mental status. UTI. Chest pain. Severe hypertension, malignant hypertension. Slurred speech. BKA. Ischemic heart disease. Diabetes. Noncompliance. COPD. DO NOT RESUSCITATE. GERD. Nicotine dependence.. Pneumonia versus mass Discharge Summary Procedures Coronary angiography. Central line. Bronchoscopy Consultations Pulmonology. Audiology. Surgery. Discharge Physical Examination Allergies: Coded Allergies: Iodinated Contrast- Oral and IV Dye (Verified Allergy, Intermediate, SWELLING HANDS AND FEET, 01/06/16) Penicillins (Verified Allergy, Mild, Pt has received Ceftriaxone & Cefazolin in the past, 10/07/17) codeine (Verified Allergy, Mild, Pt has taken Percocet w/o issue, 08/09/17) ibuprofen (Verified Allergy, Mild, 01/06/16) propoxyphene (Verified Allergy, Mild, 01/06/16) Sulfa (Sulfonamide Antibiotics) (Unverified Allergy, Unknown, 11/25/16) hydrocodone (Verified Adverse Reaction, Intermediate, NAUSEA, 01/06/16) per pt Vitals & I&Os Vital Signs Date Time Temp Pulse Resp B/P (MAP) Pulse Ox O2 Delivery O2 Flow Rate FiO2 10/13/17 15:27 67 20 152/71 98 Room Air 10/13/17 08:10 98.6 Hospital Course Patient had bronchoscopy and results are not present. Patient improved. Patient became responsive. Acute mental status resolved. Patient had malignant hypertension. Labs (last 24 hrs) Laboratory Tests 10/07/17 09:42: White Blood Count 9.7, Red Blood Count 4.20L, Hemoglobin 11.2L, Hematocrit 35, Mean Corpuscular Volume 83, Mean Corpuscular Hemoglobin 27, Mean Corpuscular Hemoglobin Concent 32, Red Cell Distribution Width 15.2H, Platelet Count 237, Mean Platelet Volume 9.4, Neutrophils (%) (Auto) 82H, Lymphocytes (%) (Auto) 14 , Monocytes (%) (Auto) 3, Eosinophils (%) (Auto) 0, Basophils (%) (Auto) 0, Neutrophils # (Auto) 8.0H, Lymphocytes # (Auto) 1.4, Monocytes # (Auto) 0.3, Eosinophils # (Auto) 0.0, Basophils # (Auto) 0.0, Prothrombin Time 13.8, INR Comment 1.1, Activated Partial Thromboplast Time 26, D-Dimer 3.98H, Sodium Level 139, Potassium Level 3.6, Chloride Level 103, Carbon Dioxide Level 26, Anion Gap 10, Blood Urea Nitrogen 9, Creatinine 0.77, Estimat Glomerular Filtration Rate > 60, BUN/Creatinine Ratio 12, Glucose Level 191H, Lactic Acid Level 0.74, Calcium Level 10.2H, Total Bilirubin 0.3, Aspartate Amino Transf ( AST/SGOT) 23, Alanine Aminotransferase (ALT/SGPT) 11, Alkaline Phosphatase 122, Troponin I < 0.30, Total Protein 7.7, Albumin 3.2 10/07/17 10:10: Urine Color YELLOW, Urine Clarity CLEAR, Urine pH 7, Urine Specific [employer] 1.010L, Urine Protein 4+, Urine Glucose (UA) NEGATIVE, Urine Ketones NEGATIVE, Urine Nitrite NEGATIVE, Urine Bilirubin NEGATIVE, Urine Urobilinogen NORMAL, Urine Leukocyte Esterase 3+H, Urine RBC (Auto) 3+H, Urine RBC 2-5H, Urine WBC 50 -100H, Urine Crystals NONE, Urine Bacteria FEWH, Urine Casts NONE, Urine Mucus NEGATIVE, Urine Culture Indicated YES 10/07/17 11:15: Blood Gas Puncture Site R BRACHIAL, Blood Gas Patient Temperature 98.0, Arterial Blood pH 7.46H, Arterial Blood Partial Pressure CO2 39, Arterial Blood Partial Pressure O2 74L, Arterial Blood HCO3 27, Arterial Blood Total CO2 28.7, Arterial Blood Oxygen Saturation 97, Arterial Blood Base Excess 3.6H, Paul Test YES-POS, Blood Gas Ventilator Setting NO, Blood Gas Inspired Oxygen ROOM AIR 10/07/17 11:19: Troponin I < 0.30, Ammonia 28 10/08/17 03:20: White Blood Count 8.9, Red Blood Count 3.49L, Hemoglobin 9.5L, Hematocrit 29L, Mean Corpuscular Volume 84, Mean Corpuscular Hemoglobin 27, Mean Corpuscular Hemoglobin Concent 33, Red Cell Distribution Width 15.2H, Platelet Count 211, Mean Platelet Volume 9.6, Neutrophils (%) (Auto) 71, Lymphocytes (%) (Auto) 21, Monocytes (%) (Auto) 7, Eosinophils (%) (Auto) 0, Basophils (%) (Auto) 0, Neutrophils # (Auto) 6.3, Lymphocytes # (Auto) 1.9, Monocytes # (Auto) 0.7, Eosinophils # (Auto) 0.0, Basophils # (Auto) 0.0, Activated Partial Thromboplast Time 54H, Sodium Level 142, Potassium Level 3.4L, Chloride Level 109H, Carbon Dioxide Level 21, Anion Gap 12, Blood Urea Nitrogen 19H, Creatinine 0.91, Estimat Glomerular Filtration Rate 60, BUN/Creatinine Ratio 21 , Glucose Level 212H, Calcium Level 9.0, Phosphorus Level 4.8H, Magnesium Level 1.6L, Triglycerides Level 95, Cholesterol Level 156, LDL Cholesterol Direct 90, VLDL Cholesterol 19, HDL Cholesterol 45 10/09/17 04:00: White Blood Count 11.9H, Red Blood Count 3.54L, Hemoglobin 9.5L, Hematocrit 30L , Mean Corpuscular Volume 83, Mean Corpuscular Hemoglobin 27, Mean Corpuscular Hemoglobin Concent 32, Red Cell Distribution Width 15.4H, Platelet Count 193, Mean Platelet Volume 10.4, Neutrophils (%) (Auto) 78H, Lymphocytes (%) (Auto) 15 , Monocytes (%) (Auto) 7, Eosinophils (%) (Auto) 0, Basophils (%) (Auto) 0, Neutrophils # (Auto) 9.3H, Lymphocytes # (Auto) 1.8, Monocytes # (Auto) 0.8, Eosinophils # (Auto) 0.0, Basophils # (Auto) 0.0, Sodium Level 138, Potassium Level 3.2L, Chloride Level 106, Carbon Dioxide Level 20L, Anion Gap 12, Blood Urea Nitrogen 20H, Creatinine 0.85, Estimat Glomerular Filtration Rate > 60, BUN /Creatinine Ratio 24, Glucose Level 299H, Calcium Level 8.8, Phosphorus Level 2.1L, Magnesium Level 1.9 10/10/17 05:35: White Blood Count 10.3, Red Blood Count 3.91L, Hemoglobin 10.6L, Hematocrit 33L , Mean Corpuscular Volume 83, Mean Corpuscular Hemoglobin 27, Mean Corpuscular Hemoglobin Concent 33, Red Cell Distribution Width 15.2H, Platelet Count 191, Mean Platelet Volume 10.6H, Neutrophils (%) (Auto) 60, Lymphocytes (%) (Auto) 31 , Monocytes (%) (Auto) 7, Eosinophils (%) (Auto) 2, Basophils (%) (Auto) 0, Neutrophils # (Auto) 6.2, Lymphocytes # (Auto) 3.2, Monocytes # (Auto) 0.7, Eosinophils # (Auto) 0.3, Basophils # (Auto) 0.0, Sodium Level 139, Potassium Level 2.7L, Chloride Level 107, Carbon Dioxide Level 21, Anion Gap 11, Blood Urea Nitrogen 17, Creatinine 0.77, Estimat Glomerular Filtration Rate > 60, BUN/ Creatinine Ratio 22, Glucose Level 215H, Calcium Level 9.1, Total Bilirubin 0.2 , Aspartate Amino Transf (AST/SGOT) 17, Alanine Aminotransferase (ALT/SGPT) 12, Alkaline Phosphatase 107, Total Protein 7.1, Albumin 3.3 10/10/17 11:01: Glucometer 370H 10/10/17 15:18: Glucometer 141H 10/10/17 20:17: Glucometer 246H 10/11/17 05:30: White Blood Count 8.8, Red Blood Count 3.46L, Hemoglobin 9.2L, Hematocrit 29L, Mean Corpuscular Volume 82, Mean Corpuscular Hemoglobin 27, Mean Corpuscular Hemoglobin Concent 32, Red Cell Distribution Width 15.2H, Platelet Count 180, Mean Platelet Volume 9.7, Neutrophils (%) (Auto) 59, Lymphocytes (%) (Auto) 26, Monocytes (%) (Auto) 8, Eosinophils (%) (Auto) 6, Basophils (%) (Auto) 0, Neutrophils # (Auto) 5.2, Lymphocytes # (Auto) 2.3, Monocytes # (Auto) 0.7, Eosinophils # (Auto) 0.5H, Basophils # (Auto) 0.0, Sodium Level 137, Potassium Level 3.4L, Chloride Level 106, Carbon Dioxide Level 21, Anion Gap 10, Blood Urea Nitrogen 11, Creatinine 0.71, Estimat Glomerular Filtration Rate > 60, BUN/ Creatinine Ratio 15, Glucose Level 157H, Calcium Level 8.5, Magnesium Level 1.6L , Total Bilirubin 0.3, Aspartate Amino Transf (AST/SGOT) 16, Alanine Aminotransferase (ALT/SGPT) 11, Alkaline Phosphatase 86, Total Protein 5.8L, Albumin 2.8L 10/11/17 06:09: Glucometer 172H 10/11/17 10:35: Urine Color YELLOW, Urine Clarity SL CLOUDY, Urine pH 7, Urine Specific [employer] 1.005L, Urine Protein 3+H, Urine Glucose (UA) 3+H, Urine Ketones NEGATIVE, Urine Nitrite NEGATIVE, Urine Bilirubin NEGATIVE, Urine Urobilinogen NORMAL, Urine Leukocyte Esterase 3+H, Urine RBC (Auto) 3+H, Urine RBC 5-10H, Urine WBC 10-25H, Urine Squamous Epithelial Cells NONE, Urine Crystals NONE, Urine Bacteria NEGATIVE, Urine Casts NONE, Urine Mucus NEGATIVE, Urine Yeast MODERATEH , Urine Culture Indicated YES 10/11/17 10:56: Glucometer 310H 10/11/17 16:44: Glucometer 163H 10/11/17 20:27: Glucometer 423*H 10/12/17 00:46: Glucometer 67L 10/12/17 01:34: Glucometer 116H 10/12/17 05:40: White Blood Count 10.4, Red Blood Count 3.48L, Hemoglobin 9.5L, Hematocrit 29L, Mean Corpuscular Volume 83, Mean Corpuscular Hemoglobin 27, Mean Corpuscular Hemoglobin Concent 33, Red Cell Distribution Width 15.3H, Platelet Count 171, Mean Platelet Volume 10.2, Sodium Level 138, Potassium Level 3.8, Chloride Level 110H, Carbon Dioxide Level 19L, Anion Gap 9, Blood Urea Nitrogen 13, Creatinine 0.67, Estimat Glomerular Filtration Rate > 60, BUN/Creatinine Ratio 19, Glucose Level 162H, Calcium Level 8.5, Magnesium Level 1.6L 10/12/17 11:10: Glucometer 281H 10/12/17 16:36: Glucometer 290H 10/12/17 20:31: Glucometer 195H 10/13/17 05:43: Glucometer 197H 10/13/17 09:30: Urine Color YELLOW, Urine Clarity SLIGHTLY CLOUDY, Urine pH 6, Urine Specific [employer] 1.010L, Urine Protein 4+, Urine Glucose (UA) 2+H, Urine Ketones NEGATIVE , Urine Nitrite NEGATIVE, Urine Bilirubin NEGATIVE, Urine Urobilinogen NORMAL, Urine Leukocyte Esterase 3+H, Urine RBC (Auto) 2+H, Urine RBC 2-5H, Urine WBC 25 -50H, Urine Squamous Epithelial Cells 2-5, Urine Crystals NONE, Urine Bacteria TRACE, Urine Casts NONE, Urine Mucus NEGATIVE, Urine Yeast FEWH, Urine Culture Indicated YES 10/13/17 10:57: Glucometer 220H Microbiology 10/07/17 Blood Culture - Final, Complete No growth 10/12/17 Mycobacterial Culture - Preliminary, Resulted 10/13/17 Urine Culture - Preliminary, Resulted Sent To [facility] Laboratory Tests 10/07/17 09:42 10/08/17 03:20 10/09/17 04:00 10/10/17 05:35 10/11/17 05:30 10/12/17 05:40 Pending Labs Microbiology Date/Time Source Procedure Growth Status 10/07/17 10:42 Peripheral Rt Forearm Blood Culture - Final No growth Complete 10/07/17 09:42 Peripheral Iv/Heplock Blood Culture - Final No growth Complete 10/12/17 06:11 Pooled Bronch Washing & Lavage Not Otherwise Specified Mycobacterial Culture - Preliminary Resulted 10/12/17 06:11 Pooled Bronch Washing & Lavage Not Otherwise Specified Gram Stain - Final Resulted 10/12/17 06:11 Bronchial Culture - Preliminary Normal lawrence Resulted 10/12/17 06:11 Pooled Bronch Washing & Lavage Not Otherwise Specified Fungal Culture Pending Resulted 10/13/17 09:30 Urine Clean Catch Urine Culture - Preliminary Sent To [facility] Resulted 10/11/17 10:35 Urine Clean Catch Urine Culture - Final Yeast species Complete 10/07/17 10:10 Urine Aviles Cath Urine Culture - Final Staphylococcus epidermidis See Comments Complete Laboratory Tests 10/07/17 09:42: White Blood Count 9.7, Red Blood Count 4.20, Hemoglobin 11.2, Hematocrit 35, Mean Corpuscular Volume 83, Mean Corpuscular Hemoglobin 27, Mean Corpuscular Hemoglobin Concent 32, Red Cell Distribution Width 15.2, Platelet Count 237, Mean Platelet Volume 9.4, Neutrophils (%) (Auto) 82, Lymphocytes (%) (Auto) 14, Monocytes (%) (Auto) 3, Eosinophils (%) (Auto) 0, Basophils (%) (Auto) 0, Neutrophils # (Auto) 8.0, Lymphocytes # (Auto) 1.4, Monocytes # (Auto) 0.3, Eosinophils # (Auto) 0.0, Basophils # (Auto) 0.0, Prothrombin Time 13.8, INR Comment 1.1, Activated Partial Thromboplast Time 26, D-Dimer 3.98, Sodium Level 139, Potassium Level 3.6, Chloride Level 103, Carbon Dioxide Level 26, Anion Gap 10, Blood Urea Nitrogen 9, Creatinine 0.77, Estimat Glomerular Filtration Rate > 60, BUN/Creatinine Ratio 12, Glucose Level 191, Lactic Acid Level 0.74, Calcium Level 10.2, Total Bilirubin 0.3, Aspartate Amino Transf (AST/SGOT) 23, Alanine Aminotransferase (ALT/SGPT) 11, Alkaline Phosphatase 122, Troponin I < 0.30, Total Protein 7.7, Albumin 3.2 10/07/17 10:10: Urine Color YELLOW, Urine Clarity CLEAR, Urine pH 7, Urine Specific [employer] 1.010, Urine Protein 4+, Urine Glucose (UA) NEGATIVE, Urine Ketones NEGATIVE, Urine Nitrite NEGATIVE, Urine Bilirubin NEGATIVE, Urine Urobilinogen NORMAL, Urine Leukocyte Esterase 3+, Urine RBC (Auto) 3+, Urine RBC 2-5, Urine WBC 50- 100, Urine Crystals NONE, Urine Bacteria FEW, Urine Casts NONE, Urine Mucus NEGATIVE, Urine Culture Indicated YES 10/07/17 11:15: Blood Gas Puncture Site R BRACHIAL, Blood Gas Patient Temperature 98.0, Arterial Blood pH 7.46, Arterial Blood Partial Pressure CO2 39, Arterial Blood Partial Pressure O2 74, Arterial Blood HCO3 27, Arterial Blood Total CO2 28.7, Arterial Blood Oxygen Saturation 97, Arterial Blood Base Excess 3.6, Paul Test YES-POS, Blood Gas Ventilator Setting NO, Blood Gas Inspired Oxygen ROOM AIR 10/07/17 11:19: Troponin I < 0.30, Ammonia 28 10/08/17 03:20: White Blood Count 8.9, Red Blood Count 3.49, Hemoglobin 9.5, Hematocrit 29, Mean Corpuscular Volume 84, Mean Corpuscular Hemoglobin 27, Mean Corpuscular Hemoglobin Concent 33, Red Cell Distribution Width 15.2, Platelet Count 211, Mean Platelet Volume 9.6, Neutrophils (%) (Auto) 71, Lymphocytes (%) (Auto) 21, Monocytes (%) (Auto) 7, Eosinophils (%) (Auto) 0, Basophils (%) (Auto) 0, Neutrophils # (Auto) 6.3, Lymphocytes # (Auto) 1.9, Monocytes # (Auto) 0.7, Eosinophils # (Auto) 0.0, Basophils # (Auto) 0.0, Activated Partial Thromboplast Time 54, Sodium Level 142, Potassium Level 3.4, Chloride Level 109 , Carbon Dioxide Level 21, Anion Gap 12, Blood Urea Nitrogen 19, Creatinine 0.91 , Estimat Glomerular Filtration Rate 60, BUN/Creatinine Ratio 21, Glucose Level 212, Calcium Level 9.0, Phosphorus Level 4.8, Magnesium Level 1.6, Triglycerides Level 95, Cholesterol Level 156, LDL Cholesterol Direct 90, VLDL Cholesterol 19, HDL Cholesterol 45 10/09/17 04:00: White Blood Count 11.9, Red Blood Count 3.54, Hemoglobin 9.5, Hematocrit 30, Mean Corpuscular Volume 83, Mean Corpuscular Hemoglobin 27, Mean Corpuscular Hemoglobin Concent 32, Red Cell Distribution Width 15.4, Platelet Count 193, Mean Platelet Volume 10.4, Neutrophils (%) (Auto) 78, Lymphocytes (%) (Auto) 15 , Monocytes (%) (Auto) 7, Eosinophils (%) (Auto) 0, Basophils (%) (Auto) 0, Neutrophils # (Auto) 9.3, Lymphocytes # (Auto) 1.8, Monocytes # (Auto) 0.8, Eosinophils # (Auto) 0.0, Basophils # (Auto) 0.0, Sodium Level 138, Potassium Level 3.2, Chloride Level 106, Carbon Dioxide Level 20, Anion Gap 12, Blood Urea Nitrogen 20, Creatinine 0.85, Estimat Glomerular Filtration Rate > 60, BUN/ Creatinine Ratio 24, Glucose Level 299, Calcium Level 8.8, Phosphorus Level 2.1 , Magnesium Level 1.9 10/10/17 05:35: White Blood Count 10.3, Red Blood Count 3.91, Hemoglobin 10.6, Hematocrit 33, Mean Corpuscular Volume 83, Mean Corpuscular Hemoglobin 27, Mean Corpuscular Hemoglobin Concent 33, Red Cell Distribution Width 15.2, Platelet Count 191, Mean Platelet Volume 10.6, Neutrophils (%) (Auto) 60, Lymphocytes (%) (Auto) 31 , Monocytes (%) (Auto) 7, Eosinophils (%) (Auto) 2, Basophils (%) (Auto) 0, Neutrophils # (Auto) 6.2, Lymphocytes # (Auto) 3.2, Monocytes # (Auto) 0.7, Eosinophils # (Auto) 0.3, Basophils # (Auto) 0.0, Sodium Level 139, Potassium Level 2.7, Chloride Level 107, Carbon Dioxide Level 21, Anion Gap 11, Blood Urea Nitrogen 17, Creatinine 0.77, Estimat Glomerular Filtration Rate > 60, BUN/ Creatinine Ratio 22, Glucose Level 215, Calcium Level 9.1, Total Bilirubin 0.2, Aspartate Amino Transf (AST/SGOT) 17, Alanine Aminotransferase (ALT/SGPT) 12, Alkaline Phosphatase 107, Total Protein 7.1, Albumin 3.3 10/10/17 11:01: Glucometer 370 10/10/17 15:18: Glucometer 141 10/10/17 20:17: Glucometer 246 10/11/17 05:30: White Blood Count 8.8, Red Blood Count 3.46, Hemoglobin 9.2, Hematocrit 29, Mean Corpuscular Volume 82, Mean Corpuscular Hemoglobin 27, Mean Corpuscular Hemoglobin Concent 32, Red Cell Distribution Width 15.2, Platelet Count 180, Mean Platelet Volume 9.7, Neutrophils (%) (Auto) 59, Lymphocytes (%) (Auto) 26, Monocytes (%) (Auto) 8, Eosinophils (%) (Auto) 6, Basophils (%) (Auto) 0, Neutrophils # (Auto) 5.2, Lymphocytes # (Auto) 2.3, Monocytes # (Auto) 0.7, Eosinophils # (Auto) 0.5, Basophils # (Auto) 0.0, Sodium Level 137, Potassium Level 3.4, Chloride Level 106, Carbon Dioxide Level 21, Anion Gap 10, Blood Urea Nitrogen 11, Creatinine 0.71, Estimat Glomerular Filtration Rate > 60, BUN/ Creatinine Ratio 15, Glucose Level 157, Calcium Level 8.5, Magnesium Level 1.6, Total Bilirubin 0.3, Aspartate Amino Transf (AST/SGOT) 16, Alanine Aminotransferase (ALT/SGPT) 11, Alkaline Phosphatase 86, Total Protein 5.8, Albumin 2.8 10/11/17 06:09: Glucometer 172 10/11/17 10:35: Urine Color YELLOW, Urine Clarity SL CLOUDY, Urine pH 7, Urine Specific [employer] 1.005, Urine Protein 3+, Urine Glucose (UA) 3+, Urine Ketones NEGATIVE, Urine Nitrite NEGATIVE, Urine Bilirubin NEGATIVE, Urine Urobilinogen NORMAL, Urine Leukocyte Esterase 3+, Urine RBC (Auto) 3+, Urine RBC 5-10, Urine WBC 10-25, Urine Squamous Epithelial Cells NONE, Urine Crystals NONE, Urine Bacteria NEGATIVE, Urine Casts NONE, Urine Mucus NEGATIVE, Urine Yeast MODERATE, Urine Culture Indicated YES 10/11/17 10:56: Glucometer 310 10/11/17 16:44: Glucometer 163 10/11/17 20:27: Glucometer 423 10/12/17 00:46: Glucometer 67 10/12/17 01:34: Glucometer 116 10/12/17 05:40: White Blood Count 10.4, Red Blood Count 3.48, Hemoglobin 9.5, Hematocrit 29, Mean Corpuscular Volume 83, Mean Corpuscular Hemoglobin 27, Mean Corpuscular Hemoglobin Concent 33, Red Cell Distribution Width 15.3, Platelet Count 171, Mean Platelet Volume 10.2, Sodium Level 138, Potassium Level 3.8, Chloride Level 110, Carbon Dioxide Level 19, Anion Gap 9, Blood Urea Nitrogen 13, Creatinine 0.67, Estimat Glomerular Filtration Rate > 60, BUN/Creatinine Ratio 19, Glucose Level 162, Calcium Level 8.5, Magnesium Level 1.6 10/12/17 11:10: Glucometer 281 10/12/17 16:36: Glucometer 290 10/12/17 20:31: Glucometer 195 10/13/17 05:43: Glucometer 197 10/13/17 09:30: Urine Color YELLOW, Urine Clarity SLIGHTLY CLOUDY, Urine pH 6, Urine Specific [employer] 1.010, Urine Protein 4+, Urine Glucose (UA) 2+, Urine Ketones NEGATIVE, Urine Nitrite NEGATIVE, Urine Bilirubin NEGATIVE, Urine Urobilinogen NORMAL, Urine Leukocyte Esterase 3+, Urine RBC (Auto) 2+, Urine RBC 2-5, Urine WBC 25-50 , Urine Squamous Epithelial Cells 2-5, Urine Crystals NONE, Urine Bacteria TRACE , Urine Casts NONE, Urine Mucus NEGATIVE, Urine Yeast FEW, Urine Culture Indicated YES 10/13/17 10:57: Glucometer 220 Discussion & Recommendations Patient transferred back to [facility] Discharge Home Medications: Active Scripts Active Pantoprazole Sodium 40 Mg Tablet.dr 40 Mg PO DAILY@0700 30 Days Ondansetron Odt (Ondansetron) 4 Mg Tab.rapdis 4 Mg PO Q6H PRN 30 Days Buspirone HCl 10 Mg Tablet 10 Mg PO BID PRN 30 Days Oxycodon-Acetaminophen 7.5-325 (Oxycodone HCl/Acetaminophen) 1 Each Tablet 2 Each PO Q4H PRN 5 Days Nicotine Patch (Nicotine) 1 Each Patch.td24 14 Mg TD DAILY@0900 10 Days Flomax (Tamsulosin HCl) 0.4 Mg Cap 0.4 Mg PO DAILY@1800 30 Days Bethanechol Chloride 25 Mg Tablet 50 Mg PO ACHS 30 Days Levemir (Insulin Determir) 1,000 Units/10 Ml Soln 12 Unit SQ BID 30 Days Vitamin D2 (Ergocalciferol (Vitamin D2)) 50,000 Unit Capsule 50,000 Units PO TH@ 0700 10 Days Instructions to patient/family Please see electronic discharge instructions given to patient. Clinical Quality Measures DVT/VTE Risk/Contraindication: Risk Factor Score Per Nursin RFS Level Per Nursing on Admit: 4+=Very High Stroke: Date of last known well: Oct 06, 2017 MIKALA DELVALLE DO Oct 14, 2017 07:27
== END 2017-10-13 16:30 | DRG 78 ==
LOC: EDUNIT# 09:32 → ER 09:34 → CATH 11:40 → ICU 11:40 → CATH 14:32 → ICU 14:32 → UNDOFXSDCSVC 10-09 12:35 → 4TH 10-09 12:35 → CATH 10-13 16:30 → 4TH 10-13 16:30
PROVIDERS: ADMIT Family Medicine; ATTEND Family Medicine
PROC: 4A023N7 Measurement of Cardiac Sampling and Pressure, Left Heart, Percutaneous Approach (ICD-10-PCS; 2017-10-07)
PROC: B2111ZZ Fluoroscopy of Multiple Coronary Arteries using Low Osmolar Contrast (ICD-10-PCS; 2017-10-07)
PROC: B2151ZZ Fluoroscopy of Left Heart using Low Osmolar Contrast (ICD-10-PCS; 2017-10-07)
PROC: B4101ZZ Fluoroscopy of Abdominal Aorta using Low Osmolar Contrast (ICD-10-PCS; 2017-10-07)
PROC: 0B998ZX Drainage of Lingula Bronchus, Via Natural or Artificial Opening Endoscopic, Diagnostic (ICD-10-PCS; principal; 2017-10-12)
DX: I67.4 Hypertensive encephalopathy (principal); I16.1 Hypertensive emergency; N39.0 Urinary tract infection, site not specified; E86.0 Dehydration; I24.9 Acute ischemic heart disease, unspecified; I10 Essential (primary) hypertension; I25.10 Atherosclerotic heart disease of native coronary artery without angina pectoris; I87.2 Venous insufficiency (chronic) (peripheral); Z66 Do not resuscitate; I70.0 Atherosclerosis of aorta; I70.1 Atherosclerosis of renal artery; D64.9 Anemia, unspecified; J44.9 Chronic obstructive pulmonary disease, unspecified; E11.51 Type 2 diabetes mellitus with diabetic peripheral angiopathy without gangrene; E78.00 Pure hypercholesterolemia, unspecified; K21.9 Gastro-esophageal reflux disease without esophagitis; N20.0 Calculus of kidney; F05 Delirium due to known physiological condition; F17.210 Nicotine dependence, cigarettes, uncomplicated; E87.6 Hypokalemia; F01.51 Vascular dementia, unspecified severity, with behavioral disturbance; R13.14 Dysphagia, pharyngoesophageal phase; M94.0 Chondrocostal junction syndrome [Tietze]; M48.54XA Collapsed vertebra, not elsewhere classified, thoracic region, initial encounter for fracture; R91.8 Other nonspecific abnormal finding of lung field; Z91.041 Radiographic dye allergy status; Z89.511 Acquired absence of right leg below knee; Z89.512 Acquired absence of left leg below knee; Z91.14 Patient's other noncompliance with medication regimen
CPT/HCPCS: 36415; 36600; 70450; 70551; 71045; 71275; 72157; 75625; 80048; 80053; 80061; 81000; 82140; 82805; 82962; 83605; 83735; 84100; 84484; 85025; 85027; 85379; 85610; 85730; 87040; 87070; 87077; 87088; 87101; 87116; 87186; 87205; 88112; 88305; 88312; 93005; 93041; 93458; 93970

== ENCOUNTER → 2017-12-09 | Outpatient (CLI) | payer MEDICARE, MEDICAID ==
[~2017-12-09] MED LIST changes: +ACET325T38 PO; +AMLO10TA6 PO; +CIPR500T4 PO; +FLUC100T6 PO; +LISI40TA PO; +MAG-10 PO; +METO50TA15 PO; +MICO1COM VG; +ONDA4TAB8 SL; +PANT40TA2 PO
--- NOTE | 2017-12-09 17:26 | Diagnostic Imaging Report ---
INDICATION: Lower and upper back pain after fall out of bed earlier today. TECHNIQUE: AP, lateral and swimmers imaging of the thoracic spine. CORRELATION STUDY: MRI 10/08/2017, CT chest 10/08/2017. FINDINGS: There is prominent accentuated kyphotic curvature. There are anteriorly wedged and mildly compressed mid and lower thoracic vertebral bodies. Features are likely relatively stable from prior imaging. Definitive acute compression deformity is not demonstrated. There is rather markedly advanced diffuse thoracic spondylosis with disc space narrowing and marginal endplate osteophyte formation. Diffuse bony demineralization with somewhat heterogeneous appearance is noted. There is rather advanced degenerative change of the visualized cervical spine, multilevel disc space narrowing. There is S-type scoliotic curvature of the thoracic spine. Parenchymal density in the lateral aspect of the left mid lung likely corresponds to area of masslike density on prior CT imaging. IMPRESSION: No radiographic evidence for acute abnormality of the thoracic spine. Dictated by: Dictated on workstation # [id number]
--- NOTE | 2017-12-09 17:48 | Diagnostic Imaging Report ---
INDICATION: Fell from bed, back pain. Comparison limited to axial images and coronal reconstructions at the time of abdominopelvic CT 02/01/2012. FINDINGS: No anterior or posterior listhesis. Lumbar statures are within normal limits and show no convincing change from prior CT. Some stature loss at T11 of uncertain acuity, correlate with the level of pain. IMPRESSION: Intact lumbar spine aligned anatomically. Mild stature loss and wedging at T11 without lucent endplate irregularity, probably chronic and physiologic although cannot be confirmed old on prior imaging. Dictated by: Dictated on workstation # [id number]
== END ==
LOC: RAD 15:04
PROVIDERS: ATTEND Family Medicine
DX: M54.6 Pain in thoracic spine (principal); M54.5 Low back pain; W06.XXXA Fall from bed, initial encounter
CPT/HCPCS: 72072; 72100

== ENCOUNTER 2017-12-13 15:42 | Inpatient (IN) | payer MEDICARE, MEDICAID ==
[~2017-12-13] VITALS: Ht 127 cm; Wt 52.1 kg
[2017-12-13] VITALS (12 sets, daily range): BP systolic 93–146; BP diastolic 45–94
[~2017-12-13 15:42] MED LIST changes: -ACET325T38 PO; -AMLO10TA6 PO; -CIPR500T4 PO; -FLUC100T6 PO; -LISI40TA PO; -MAG-10 PO; -METO50TA15 PO; -MICO1COM VG; -ONDA4TAB8 SL; -PANT40TA2 PO
[2017-12-13] MEDS ORDERED: CEFEPIME INJECTION 2,000 MG in NS (IVPB) 50 ML IV ONE (16:30)
[2017-12-13] MEDS ORDERED: NS IV ONE (16:30)
[2017-12-13] MEDS ORDERED: RT-ALBUTEROL/IPRATROPIUM 3 ML (DUONEB) VIAL INH ONE (16:30)
--- NOTE | 2017-12-13 16:31 | ED General ---
General Chief Complaint: Cardiac/General Problems Stated Complaint: SEPTIC Source of Information: Patient, RN/MD (Dr. Delvalle phone call) Exam Limitations: Other History of Present Illness Date Seen by Provider: Dec 13, 2017 Time Seen by Provider: 16:16 Initial Comments Patient presents to the ER by private conveyance from via [facility] [place] where she was seen prior by Dr. Delvalle who felt that her heart rate was elevated and she is feeling lethargy and low temperature of 96.3. He is concerned about a septic process. 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 Patient endorses pain in her belly but no cough fevers chills. She is not very helpful historian. She says she does have a history of asthma however. She denies any nausea but she says her last bowel movement was over 2 days ago. She states this is normal for her. Allergies and Home Medications Allergies Coded Allergies: Iodinated Contrast- Oral and IV Dye (Verified Allergy, Intermediate, SWELLING HANDS AND FEET, 01/06/16) Penicillins (Verified Allergy, Mild, Pt has received Ceftriaxone & Cefazolin in the past, 10/07/17) codeine (Verified Allergy, Mild, Pt has taken Percocet w/o issue, 08/09/17) ibuprofen (Verified Allergy, Mild, 01/06/16) propoxyphene (Verified Allergy, Mild, 01/06/16) Sulfa (Sulfonamide Antibiotics) (Unverified Allergy, Unknown, 11/25/16) hydrocodone (Verified Adverse Reaction, Intermediate, NAUSEA, 01/06/16) per pt Home Medications Bethanechol Chloride 25 Mg Tablet, 50 MG PO ACHS Prescribed by: MYKEL ELIZABETH on 08/18/17 144 Buspirone HCl 10 Mg Tablet, 10 MG PO BID PRN for anxiety Prescribed by: MYKEL ELIZABETH on 08/18/17 144 Ergocalciferol (Vitamin D2) 50,000 Unit Capsule, 50,000 UNITS PO Th@0700 Prescribed by: MYKEL ELIZABETH on 08/18/17 144 Insulin Determir 1,000 Units/10 Ml Soln, 12 UNIT SQ BID Prescribed by: MYKEL ELIZABETH on 08/18/17 144 Nicotine 1 Each Patch.td24, 14 MG TD DAILY@0900 Prescribed by: MYKEL ELIZABETH on 08/18/171443 Ondansetron 4 Mg Tab.rapdis, 4 MG PO Q6H PRN for NAUSEA/VOMITING-1ST LINE Prescribed by: MYKEL ELIZABETH on 08/18/17 144 Oxycodone HCl/Acetaminophen 1 Each Tablet, 2 EACH PO Q4H PRN for PAIN-MODERATE Prescribed by: MYKEL ELIZABETH on 08/18/17 144 Pantoprazole Sodium 40 Mg Tablet.dr, 40 MG PO DAILY@0700 Prescribed by: MYKEL ELIZABETH on 08/18/17 144 Tamsulosin HCl 0.4 Mg Cap, 0.4 MG PO DAILY@1800 Prescribed by: MYKEL ELIZABETH on 08/18/171443 Patient Home Medication List Home Medication List Reviewed: Yes Review of Systems Review of Systems Constitutional: No chills, No fever; weakness EENTM: No ear discharge, No ear pain Respiratory: No cough; short of breath; No wheezing Cardiovascular: No chest pain, No palpitations Gastrointestinal: abdominal pain; No constipation, No diarrhea, No nausea, No vomiting Genitourinary: No discharge, No dysuria Musculoskeletal: No back pain, No joint pain Past Fnhiqae-Eufigb-Czryqo Hx Patient Social History Alcohol Use: Denies Use Recreational Drug Use: No Smoking Status: Current Everyday Smoker Type Used: Cigarettes 2nd Hand Smoke Exposure: No Recent Hopitalizations: Yes Immunizations Up To Date Tetanus Booster (TDap): Less than 5yrs PED Vaccines UTD: No Date of Pneumonia Vaccine: Jan 10, 2016 Date of Influenza Vaccine: Jan 10, 2016 Seasonal Allergies Seasonal Allergies: Yes Past Medical History Surgeries: Yes (BILAT BKA, SEWED RIGHT INDEX FINGER TEENAG) Amputation, Orthopedic Respiratory: Yes Asthma, COPD Currently Using CPAP: No Currently Using BIPAP: No Cardiac: Yes High Cholesterol, Hypertension, Peripheral Vascular Neurological: Yes Dementia, Neuropathy Reproductive Disorders: No 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 No Pertinent Family Hx All history per records as patient has altered mental status. Physical Exam-Suspected Sepsis Physical Exam Vital Signs Vital Signs - First Documented 12/13/17 12/13/17 16:32 16:50 Temp 97.3 Pulse 109 Resp 12 B/P (MAP) 87/58 (68) Pulse Ox 98 O2 Delivery Nasal Cannula O2 Flow Rate 2.00 Capillary Refill : Height, Weight, BMI Height: 4'0.00" Weight: 124lbs. 3.0oz. [id number]; 36.8 BMI Method:Stated General Appearance: Mild Distress, Thin (disheveled) Eyes: Bilateral Eye Normal Inspection, Bilateral Eye PERRL, Bilateral Eye EOMI HEENT: PERRL/EOMI, TMs Normal, Normal ENT Inspection, Pharynx Normal; No Moist Mucous Membranes Neck: Full Range of Motion, Normal Inspection, Supple Respiratory: Chest Non Tender, Lungs Clear, No Accessory Muscle Use, No Respiratory Distress, Decreased Breath Sounds Cardiovascular: Regular Rate, Rhythm, No Edema, Normal Peripheral Pulses Gastrointestinal: Normal Bowel Sounds, Soft, Tenderness (left upper and lower quadrant abdominal tenderness to palpation.) Extremity: Normal Capillary Refill, Non Tender, No Pedal Edema Neurologic/Psychiatric: Alert, 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 II-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 Norm as Tested, Other (oriented to self but not time place or situation) Skin: normal color, warm/dry Focused Exam Lactate Level 12/13/17 16:15: Lactic Acid Level 3.38*H 12/13/17 18:44: Lactic Acid Level Laboratory Tests Test 12/13/17 16:15 12/13/17 18:44 Lactic Acid Level 3.38 MMOL/L (0.50-2.00) *H Procedures/Interventions Lumen: triple Central Line Procedure: betadine prep (chlorhexidine prep), sterile drapes applied, sterile dressing applied Position: internal jugular (R) Anesthesia: Lidocaine Volume Anesthetic (ccs): 3 Complications: none Post Position: sutured, good blood return, position confirmed w/ CXR Patient was put in Trendelenburg position and had her head moved in the usual fashion and draped out in the sterile usual fashion. Everybody in the room or headgear, mask and the proceduralist donned sterile gloves and sterile gown. After infiltrating the site with 3 cc of 1% lidocaine without epinephrine the carotid artery and right internal jugular were visualized on ultrasound and the usual fashion. Introducer needle was passed into the right IJ. Dark blood return was followed by passing the guidewire. Guidewire passed easily and no ectopy was seen on the residential monitor. The 11 blade scalpel was then used to make a david in the skin and the introducer needle was removed from the patient. The dilator was passed over the guidewire and then removed and the triple-lumen that was already flushed with sterile saline was then passed over the guidewire with ease. The guidewire was withdrawn and the central lumen was flushed with 2 cc of sterile saline and capped. A Biopatch was then placed and the central line was stitched down in 4 places at 14 cm at the skin. The sterile dressing was then placed in the usual fashion and the patient tolerated procedure well. Chest x-ray was obtained demonstrating the tip of the central line just above the right atria in the superior vena cava in good position. It did not cross the midline. Progress/Results/Core Measures Suspected Sepsis SIRS Temperature: Pulse: Respiratory Rate: Laboratory Tests 12/13/17 16:15: White Blood Count 16.9H Blood Pressure / Mean: 12/13/17 16:15: Lactic Acid Level 3.38*H 12/13/17 18:44: Laboratory Tests 12/13/17 16:15: Creatinine 1.90H, INR Comment 1.1, Platelet Count 186, Total Bilirubin 0.4 Results/Orders Lab Results Laboratory Tests Test 12/13/17 16:15 12/13/17 16:30 12/13/17 18:44 Range/Units White Blood Count 16.9 H 4.3-11.0 10^3/uL Red Blood Count 4.79 4.35-5.85 10^6/uL Hemoglobin 12.6 11.5-16.0 G/DL Hematocrit 39 35-52 % Mean Corpuscular Volume 81 80-99 FL Mean Corpuscular Hemoglobin 26 25-34 PG Mean Corpuscular Hemoglobin Concent 32 32-36 G/DL Red Cell Distribution Width 21.7 H 10.0-14.5 % Platelet Count 186 130-400 10^3/uL Mean Platelet Volume 10.3 7.4-10.4 FL Neutrophils (%) (Auto) 71 42-75 % Lymphocytes (%) (Auto) 22 12-44 % Monocytes (%) (Auto) 6 0-12 % Eosinophils (%) (Auto) 1 0-10 % Basophils (%) (Auto) 0 0-10 % Neutrophils # (Auto) 12.1 H 1.8-7.8 X 10^3 Lymphocytes # (Auto) 3.8 1.0-4.0 X 10^3 Monocytes # (Auto) 0.9 0.0-1.0 X 10^3 Eosinophils # (Auto) 0.1 0.0-0.3 10^3/uL Basophils # (Auto) 0.1 0.0-0.1 10^3/uL Neutrophils % (Manual) 57 % Lymphocytes % (Manual) 27 % Monocytes % (Manual) 7 % Eosinophils % (Manual) 0 % Basophils % (Manual) 1 % Band Neutrophils 8 % Blood Morphology Comment NORMAL Prothrombin Time 14.7 12.2-14.7 SEC INR Comment 1.1 0.8-1.4 Activated Partial Thromboplast Time 26 24-35 SEC Sodium Level 137 135-145 MMOL/L Potassium Level 5.1 H 3.6-5.0 MMOL/L Chloride Level 103 98-107 MMOL/L Carbon Dioxide Level 21 21-32 MMOL/L Anion Gap 13 5-14 MMOL/L Blood Urea Nitrogen 40 H 7-18 MG/DL Creatinine 1.90 H 0.60-1.30 MG/DL Estimat Glomerular Filtration Rate 26 BUN/Creatinine Ratio 21 Glucose Level 68 L 70-105 MG/DL Lactic Acid Level 3.38 *H 0.50-2.00 MMOL/L Calcium Level 14.7 *H 8.5-10.1 MG/DL Corrected Calcium 15.1 H 8.5-10.1 MG/DL Total Bilirubin 0.4 0.1-1.0 MG/DL Aspartate Amino Transf (AST/SGOT) 60 H 5-34 U/L Alanine Aminotransferase (ALT/SGPT) 19 0-55 U/L Alkaline Phosphatase 249 H 40-136 U/L Total Protein 8.2 6.4-8.2 GM/DL Albumin 3.5 3.2-4.5 GM/DL Lipase 568 H 8-78 U/L Urine Color YELLOW Urine Clarity VERY CLOUDY H Urine pH 6.5 5-9 Urine Specific [place] 1.010 L 1.016-1.022 Urine Protein 3+ H NEGATIVE Urine Glucose (UA) NEGATIVE NEGATIVE Urine Ketones NEGATIVE NEGATIVE Urine Nitrite NEGATIVE NEGATIVE Urine Bilirubin NEGATIVE NEGATIVE Urine Urobilinogen NORMAL NORMAL MG/DL Urine Leukocyte Esterase 3+ H NEGATIVE Urine RBC (Auto) 4+ H NEGATIVE Urine RBC 10-25 H /HPF Urine WBC >100 H /HPF Urine Crystals NONE /LPF Urine Bacteria FEW H /HPF Urine Casts NONE /LPF Urine Mucus NEGATIVE /LPF Urine Culture Indicated YES My Orders Orders - JOSEPH HUTCHINSON Cbc With Automated Diff (12/13/17 16:21) Comprehensive Metabolic Panel (12/13/17 16:21) Blood Culture (12/13/17 16:21) Sputum Culture (12/13/17 16:21) Urinalysis (12/13/17 16:21) Urine Culture (12/13/17 16:21) Protime With Inr (12/13/17 16:) Partial Thromboplastin Time (12/13/17 16:21) Chest 1 View, Ap/Pa Only (12/13/17 16:21) Saline Lock/Iv-Start (12/13/17 16:21) Saline Lock/Iv-Start (12/13/17 16:21) Vital Signs Adult Sepsis Patie Q15M (12/13/17 16:21) O2 (12/13/17 16:21) Remove Rings In Anticipation O (12/13/17 16:21) Lactic Acid Analyzer (12/13/17 16:21) Ns Iv 1000 Ml (Sodium Chloride 0.9%) (12/13/17 16:30) Cefepime Injection (Maxipime Injection) (12/13/17 16:30) Albuterol/Ipra Inhalation Soln (Duoneb I (12/13/17 16:30) Svn Small Volume Nebulizer (12/13/17 16:21) Lipase (12/13/17 16:31) Catheter(Urinary) Insert & Ass 03,15 (12/13/17 16:31) Manual Differential (12/13/17 16:15) Urine Culture (12/13/17 16:30) Calcitonin Injection (Miacalcin Injectio (12/13/17 17:09) Calcium (12/13/17 17:09) Fentanyl Injection (Sublimaze Injection (12/13/17 18:06) Chest 1 View, Ap/Pa Only (12/13/17 ) Medications Given in ED Current Medications Medications Dose Ordered Sig/Keenan Route Start Time Stop Time Status Last Admin Dose Admin Albuterol/ Ipratropium 3 ml ONCE ONCE INH 12/13/17 16:30 12/13/17 16:31 DC 12/13/17 16:50 3 ML Cefepime HCl 2000 mg/Sodium Chloride 50 ml @ 100 mls/hr ONCE ONCE IV 12/13/17 16:30 12/13/17 16:59 DC 12/13/17 18:23 100 MLS/HR Fentanyl Citrate 100 mcg STK-MED ONCE .ROUTE 12/13/17 18:06 12/13/17 18:10 DC 12/13/17 18:24 50 MCG Sodium Chloride 1,700 ml @ 1,700 mls/hr ONCE ONCE IV 12/13/17 16:30 12/13/17 17:29 DC 12/13/17 16:49 1,700 MLS/HR Vital Signs/I&O 12/13/17 12/13/17 12/13/17 16:32 16:50 19:01 Temp 97.3 97.9 Pulse 109 113 Resp 12 11 B/P (MAP) 87/58 (68) 101/50 Pulse Ox 98 96 100 O2 Delivery Nasal Cannula O2 Flow Rate 2.00 Capillary Refill : Progress Note #1: Time: 16:29 Progress Note Patient having any respiratory symptoms but she has a history of asthma and she has diminished breath sounds. We'll give her breathing treatment and reevaluate. Chest x-ray and a septic workup. Return to give her 30 mL/kg bolus which would be 1700 cc to start. If she is fluid responsive then we will need to drop a central line necessarily however she is consistently hypotensive and probably hypovolemic. Having some belly pain so obstruction is possible as well as UTI versus diverticulitis, pancreatitis etc. Progress Note #2: Time: 17:20 Progress Note Patient got about half her fluid bolus and an she's responding to fluid therapy up to 88 systolic however Yahir Haq dropped central line in her. Progress Note #3: Time: 18:43 Progress Note We'll have to get pharmacy involved to get the Zoledronate and calcitonin. I will ordered for first time she gets to the ICU. We also repeated a calcium measurement. Diagnostic Imaging Diagonstic Imaging: CT (with contrast) Plain Films/CT/US/NM/MRI: abdomen, pelvis Reviewed: Reviewed by Me Critical Care Note Critical Care Start Time: 16:15 Stop Time: 18:30 Total Time (minutes) 135 Progress Brought the patient back and noted that her blood pressure was in the 60s to 70s systolic. She is not mentating well. She had overt and purulence noted in her urine grossly. Zosyn was chosen which would cover pyelonephritis as well as a possible intra-abdominal source and she was having some pain in her left upper quadrant abdomen. She is not stable for CT scan her. We started a 30 mL/ kg bolus and septic shock workup. Had her in Trendelenburg which helped some as the fluid boluses about through her blood pressure came up to the high 90s but then assumes it was DynaCirc slipping back down to the mid 80s. A central line was placed. Multiple attempts were used because she had a very flat internal jugular vein. The patient was in Trendelenburg which helped some. After the fluid bolus the patient was a little more alert and speaking to us more appropriately. The antibiotics I think helped as well. A Aviles catheter was placed because the patient has double below the knee amputations and is not very mobile or able to care for herself. We'll need a good input and output as well. Chest x-ray may show possible malignancy and will probably need worked up in the future. She had some slightly diminished lung sounds and a breathing treatment was given however the patient's breath sounds really didn't change after the DuoNeb. She does state she has a history of asthma. 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 We ordered calcitonin for international units per kilogram which would be 225 international units. Pharmacy does not have this medication and R axis so we have made the patient is stable as can be and we'll have them give this as well as the Zoledronate upstairs. We've also given her a large fluid bolus which is helped and we'll put her on some 1.5 times maintenance IV fluids in addition to this. We have the patient out of Trendelenburg now and her blood pressure is staying up at 101/50 without pressors at this time. She is much more alert and talking and asking appropriate questions. We've talked to the primary care provider as well as Dr. Alfred and they will take care of the patient in the ICU. While she is doing much better she is by no means stable enough to go to the CT scanner at this time. Reason we chose Zosyn was because there is some pain in her left upper quadrant and a history of no bowel movement for the past couple days. Could be intra-abdominal process such as bowel obstruction etc. Zosyn will also help protect against multiple drug-resistant organisms since she lives at a residential and is also diabetic. Critical-care can help manage her sugars in the ICU. Departure Communication (Admissions) Time/Spoke to Admitting Phy: 18:35 Discussed case lab imaging findings with Dr. Delvalle. Discussed the cradle care management and central line as well as choice of Zosyn. We discussed that the patient was having some left upper quadrant abdominal pain we were not able to workup because she's not been stable on and up to go to the CT scanner and that he should probably reevaluate that in the morning and he acknowledges and will see the patient. He would like eICU and Dr. Alfred's critical care consult on the case. Time/Spoke to Consulting Phy: 18:40 Discussed case lab imaging findings with Dr. Alfred and he said he is happy to consult on the case. Impression Primary Impression: Septic shock Additional Impressions: UTI (urinary tract infection) Qualified Codes: N30.01 - Acute cystitis with hematuria Hypercalcemia Disposition: ADMITTED INPATIENT Condition: Critical Admissions Decision to Admit Reason: Admit from ER (General) Decision to Admit/Date: Dec 13, 2017 Time/Decision to Admit Time: 18:41 Departure-Patient Inst. Referrals: MIKALA DELVALLE DO (PCP/Family) Primary Care Physician Copy Copies To 1: MIKALA DELVALLE TITUS J Dec 13, 2017 16:30
[2017-12-13 16:32] LABS: BASOPHILS # (AUTO) 0.1 10^3/uL (0.0-0.1); BASOPHILS % (AUTO) 0 % (0-10); EOSINOPHILS # (AUTO) 0.1 10^3/uL (0.0-0.3); EOSINOPHILS % (AUTO) 1 % (0-10); HEMATOCRIT 39 % (35-52); HEMOGLOBIN 12.6 G/DL (11.5-16.0); LYMPHOCYTES # (AUTO) 3.8 X 10^3 (1.0-4.0); LYMPHOCYTES % (AUTO) 22 % (12-44); MEAN CORPUSCULAR HEMOGLOBIN 26 PG (25-34); MEAN CORPUSCULAR HGB CONC 32 G/DL (32-36); MEAN CORPUSCULAR VOLUME 81 FL (80-99); MEAN PLATELET VOLUME 10.3 FL (7.4-10.4); MONOCYTES # (AUTO) 0.9 X 10^3 (0.0-1.0); MONOCYTES % (AUTO) 6 % (0-12); NEUTROPHILS # (AUTO) 12.1 X 10^3 (1.8-7.8); NEUTROPHILS % (AUTO) 71 % (42-75); PLATELET COUNT 186 10^3/uL (130-400); RED BLOOD COUNT 4.79 10^6/uL (4.35-5.85); RED CELL DISTRIBUTION WIDTH 21.7 % (10.0-14.5); WHITE BLOOD COUNT 16.9 10^3/uL (4.3-11.0)
[2017-12-13 16:37] LABS: INR 1.1 (0.8-1.4); PROTHROMBIN TIME PATIENT 14.7 SEC (12.2-14.7)
[2017-12-13 16:46] LABS: BILIRUBIN,URINE NEGATIVE (NEGATIVE); CLARITY,URINE VERY CLOUDY; COLOR,URINE YELLOW; GLUCOSE, URINE (UA) NEGATIVE (NEGATIVE); KETONES,URINE NEGATIVE (NEGATIVE); LEUKOCYTE ESTERASE ,URINE 3+ (NEGATIVE); NITRITE,URINE NEGATIVE (NEGATIVE); PH,URINE 6.5 (5-9); PROTEIN,URINE 3+ (NEGATIVE); UROBILINOGEN,URINE NORMAL (NORMAL)
[2017-12-13 16:47] LABS: ALBUMIN 3.5 GM/DL (3.2-4.5); BILIRUBIN,TOTAL 0.4 MG/DL (0.1-1.0); CREATININE SERUM 1.9 MG/DL (0.60-1.30); POTASSIUM 5.1 MMOL/L (3.6-5.0); TOTAL PROTEIN 8.2 GM/DL (6.4-8.2)
[2017-12-13 16:51] LABS: CALCIUM 14.7 MG/DL (8.5-10.1)
[2017-12-13 16:53] LABS: BAND NEUTROPHILS 8 %; BASOPHILS % (MANUAL) 1 %; EOSINOPHILS % (MANUAL) 0 %; LYMPHOCYTES % (MANUAL) 27 %; MONOCYTES % (MANUAL) 7 %; NEUTROPHILS % (MANUAL) 57 %; RBC MORPH NORMAL
--- NOTE | 2017-12-13 16:56 | Diagnostic Imaging Report ---
INDICATION: Sepsis. TIME OF EXAM: 4:42 p.m. COMPARISON: Comparison is made with prior chest radiograph from 10/13/2017. FINDINGS: The heart size is stable. Previously noted opacity in the mid left lung persists and may be slightly more prominent on today's study. Again, a mass lesion cannot be excluded. No new parenchymal opacity is seen. The right lung is clear. No effusion or pneumothorax is identified. IMPRESSION: Slight increase in prominence of previously noted opacity in the left mid lung when compared with prior chest radiograph from two months earlier. Again, neoplasm cannot be entirely excluded. Dictated by: Dictated on workstation # [id number]
[2017-12-13 17:02] LABS: WBC,URINE >100 /HPF
[2017-12-13 17:03] LABS: BACTERIA,URINE FEW /HPF
[2017-12-13] MEDS ORDERED: CALCITONIN 400 IUNITS/2 ML INJ (MIACALCIN) VIAL IM STA (17:09)
[2017-12-13] MEDS ORDERED: fentaNYL INJECTION 100 MCG/2 ML AMP ONE (18:06)
--- NOTE | 2017-12-13 18:41 | Diagnostic Imaging Report ---
EXAM: CHEST 1 VIEW, AP/PA ONLY INDICATION: LINE PLACEMENT COMPARISON: Chest radiograph 12/13/2017. FINDINGS: New right IJ CVC tip mid SVC. Normal heart size and central pulmonary vascularity. Calcified aorta. Persistent airspace opacity in left midlung. No pleural effusion or pneumothorax. No acute osseous findings. IMPRESSION: 1. New right IJ CVC tip mid SVC. No pneumothorax. 2. Stable airspace opacity in the left midlung. Dictated by: Dictated on workstation # [id number]
[2017-12-13] MEDS ORDERED: NS IV 1000 ML 1,000 ML IV SCH (19:17)
[2017-12-13] MEDS ORDERED: ACETAMINOPHEN 650 MG SUPP (TYLENOL) PR PRN (20:00)
[2017-12-13] MEDS ORDERED: ZOLEDRONIC ACID IV NR (20:00)
[2017-12-13] MEDS ORDERED: CALCITONIN 400 IUNITS/2 ML INJ (MIACALCIN) VIAL IM SCH (20:00)
[2017-12-13] MEDS ORDERED: LACTATED RINGERS IV PRN (20:00)
[2017-12-13] MEDS ORDERED: NS IV NR (20:00)
[2017-12-13] MEDS: 1/2 NS IV SOLUTION 1,000 ML IV SCH (20:17)
[2017-12-13] MEDS: LACTATED RINGERS 1,000 ML IV SCH (21:11)
[2017-12-13] MEDS: NOREPINEPHRINE 4 MG in NS (IVPB) 250 ML IV SCH (21:11)
[2017-12-13] MEDS: VASOPRESSIN INJECTION 20 UNIT in NS (IVPB) 100 ML IV SCH (21:12)
[2017-12-13] MEDS ORDERED: RT-ALBUTEROL SULF 2.5 MG/3 ML PRE-MIX VIAL INH PRN (22:00)
[2017-12-14] VITALS (34 sets, daily range): BP systolic 80–132; BP diastolic 44–86
[2017-12-14] MEDS ORDERED: oxyCODONE/APAP 10/325MG (PERCOCET 10) TABLET PO PRN (00:45)
[2017-12-14] MEDS: LACTATED RINGERS 1,000 ML IV SCH ×6 (01:29→23:33)
[2017-12-14] MEDS ORDERED: NOREPINEPHRINE 4 MG/4 ML (LEVOPHED) AMP IV ONE (02:34)
[2017-12-14] MEDS ORDERED: NS (IVPB) 250 ML ONE (02:34)
[2017-12-14] MEDS: 1/2 NS IV SOLUTION 1,000 ML IV SCH (02:45)
[2017-12-14] MEDS: NOREPINEPHRINE 4 MG in NS (IVPB) 250 ML IV SCH (02:46)
[2017-12-14 03:31] LABS: BASOPHILS % (AUTO) 0 % (0-10); EOSINOPHILS # (AUTO) 0.1 10^3/uL (0.0-0.3); EOSINOPHILS % (AUTO) 1 % (0-10); HEMATOCRIT 29 % (35-52); HEMOGLOBIN 9.6 G/DL (11.5-16.0); LYMPHOCYTES # (AUTO) 2.6 X 10^3 (1.0-4.0); LYMPHOCYTES % (AUTO) 19 % (12-44); MEAN CORPUSCULAR HEMOGLOBIN 27 PG (25-34); MEAN CORPUSCULAR HGB CONC 33 G/DL (32-36); MEAN CORPUSCULAR VOLUME 82 FL (80-99); MEAN PLATELET VOLUME 10.1 FL (7.4-10.4); MONOCYTES # (AUTO) 0.8 X 10^3 (0.0-1.0); MONOCYTES % (AUTO) 6 % (0-12); NEUTROPHILS # (AUTO) 10.1 X 10^3 (1.8-7.8); NEUTROPHILS % (AUTO) 74 % (42-75); PLATELET COUNT 138 10^3/uL (130-400); RED BLOOD COUNT 3.55 10^6/uL (4.35-5.85); RED CELL DISTRIBUTION WIDTH 21.1 % (10.0-14.5); WHITE BLOOD COUNT 13.5 10^3/uL (4.3-11.0)
[2017-12-14 03:34] LABS: SMEAR SCAN COMMENT YES
[2017-12-14 03:44] LABS: INR 1.4 (0.8-1.4)
[2017-12-14 03:51] LABS: ALBUMIN 2.6 GM/DL (3.2-4.5); BILIRUBIN,TOTAL 0.3 MG/DL (0.1-1.0); CALCIUM 11.7 MG/DL (8.5-10.1); CREATININE SERUM 1.75 MG/DL (0.60-1.30); MAGNESIUM 1.7 MG/DL (1.8-2.4); PHOSPHORUS 3.5 MG/DL (2.3-4.7); POTASSIUM 4.6 MMOL/L (3.6-5.0); TOTAL PROTEIN 5.9 GM/DL (6.4-8.2)
[2017-12-14] MEDS: VASOPRESSIN INJECTION 20 UNIT in NS (IVPB) 100 ML IV SCH ×2 (04:06→12:21)
[2017-12-14] MEDS: POTASSIUM CL 10MEQ/50ML IVPB 50 ML IV SCH (04:56)
[2017-12-14] MEDS: KCL 20 MEQ TAB (K-DUR) PO SCH (04:56)
[2017-12-14] MEDS: MAGNESIUM 1 GM/100 ML IVPB 100 ML IV SCH ×3 (05:15→06:24)
[2017-12-14] MEDS: inSUlin ASPART (NovoLOG) 1 UNIT/0.01 ML (CHARGE PER UNIT) SC SCH ×5 (05:34→23:30)
--- NOTE | 2017-12-14 05:51 | Pulmonary Consultation ---
History of Present Illness History of Present Illness Date of Consultation 12/14/17 05:46 Time Seen by Provider: 05:46 Date of Admission History of Present Illness 72yo with hx of Bilateral BKA secondary to uncontrolled DM presented to ED from [facility] secondary to worsening lethargy and tachycardia. Allergies and Home Medications Allergies Coded Allergies: Iodinated Contrast- Oral and IV Dye (Verified Allergy, Intermediate, SWELLING HANDS AND FEET, 01/06/16) Penicillins (Verified Allergy, Mild, Pt has received Ceftriaxone & Cefazolin in the past, 10/07/17) codeine (Verified Allergy, Mild, Pt has taken Percocet w/o issue, 08/09/17) ibuprofen (Verified Allergy, Mild, 01/06/16) propoxyphene (Verified Allergy, Mild, 01/06/16) Sulfa (Sulfonamide Antibiotics) (Unverified Allergy, Unknown, 11/25/16) hydrocodone (Verified Adverse Reaction, Intermediate, NAUSEA, 01/06/16) per pt Home Medications Acetaminophen 325 Mg Tablet, 650 MG PO Q4H PRN for PAIN-MILD, (Reported) Amlodipine Besylate 10 Mg Tablet, 10 MG PO DAILY, (Reported) Buspirone HCl 10 Mg Tablet, 10 MG PO BID, (Reported) Ciprofloxacin HCl 500 Mg Tablet, 500 MG PO BID, (Reported) 6 DAY THERAPY STOP DATE 12-19-17 Ergocalciferol (Vitamin D2) 50,000 Unit Capsule, 50,000 UNIT PO WEEK, (Reported) Fluconazole 100 Mg Tablet, 100 MG PO HS, (Reported) 4 DAY THERAPY STOP DATE 12-17-17 Insulin Determir 1,000 Units/10 Ml Soln, 12 UNITS SQ BID, (Reported) Lisinopril 40 Mg Tablet, 40 MG PO DAILY, (Reported) Mag Hydrox/Al Hydrox/Simeth 355 Ml Oral.susp, 30 ML PO Q4H PRN for INDIGESTION, (Reported) Metoprolol Tartrate 50 Mg Tablet, 50 MG PO BID, (Reported) Miconazole Nitrate 24 Gm Cmb.pf.crm, VG BID PRN for RASH, (Reported) Nicotine 1 Each Patch.td24, 14 MG TD DAILY, (Reported) Ondansetron 4 Mg Tab.rapdis, 4 MG SL Q6H PRN for NAUSEA/VOMITING-1ST LINE, ( Reported) Pantoprazole Sodium 40 Mg Tablet.dr, 40 MG PO DAILY, (Reported) Past Sfoxivq-Tbaame-Lqmrvy Hx Patient Social History Alcohol Use: Denies Use Recreational Drug Use: No Smoking Status: Current Everyday Smoker Type Used: Cigarettes 2nd Hand Smoke Exposure: No Recent Foreign Travel: No Contact w/Someone Who Travel: No Recent Infectious Disease Expo: No Recent Hopitalizations: Yes Physical Abuse: No Sexual Abuse: No Mistreated: No Fear: No Immunizations Up To Date Tetanus Booster (TDap): Less than 5yrs PED Vaccines UTD: No Date of Pneumonia Vaccine: Jan 10, 2016 Date of Influenza Vaccine: Jan 10, 2016 Seasonal Allergies Seasonal Allergies: Yes Past Medical History Surgeries: Yes (BILAT BKA, SEWED RIGHT INDEX FINGER TEENAG) Amputation, Orthopedic Respiratory: Yes Asthma, COPD Currently Using CPAP: No Currently Using BIPAP: No Cardiac: Yes High Cholesterol, Hypertension, Peripheral Vascular Neurological: Yes Dementia, Neuropathy Reproductive Disorders: No 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 Sexually Transmitted Disease: No HIV/AIDS: No Genitourinary: Yes (chronic kidney disease, urinary retention) Kidney Stones, UTI-Chronic Gastrointestinal: Yes Gastroesophageal Reflux, Pancreatitis Musculoskeletal: Yes Amputee, Osteoporosis, Arthritis Endocrine: Yes (Non-compliant DM) Diabetes, Non-Insulin dep HEENT: Yes Cataract Loss of Vision: Denies Hearing Impairment: Denies Cancer: No Psychosocial: Yes Anxiety, Depression Integumentary: Yes (DIABETIC ULCERS, CHRONIC CELLULITIS) Blood Disorders: No Adverse Reaction/Blood Tranf: No Family Medical History Patient reports no known family medical history. No Pertinent Family Hx All history per records as patient has altered mental status. Review of Systems Time Seen by Provider: 07:19 Sepsis Event Evaluation Height, Weight, BMI Height: 4'2.00" Weight: 103lbs. 4.2oz. [id number]; 30.1 BMI Method:Estimated Exam Exam Vital Signs Date Time Temp Pulse Resp B/P (MAP) Pulse Ox O2 Delivery O2 Flow Rate FiO2 12/14/17 05:00 111 17 132/60 (84) 97 Room Air 12/14/17 04:45 100 12 103/52 (69) 96 Room Air 12/14/17 04:30 105 12 110/48 (68) 95 Room Air 12/14/17 04:15 105 11 113/49 (70) 95 Room Air 12/14/17 04:00 Room Air 12/14/17 04:00 107 14 96/51 (66) 95 Room Air 12/14/17 03:45 104 13 105/52 (69) 96 Room Air 12/14/17 03:44 97.4 12/14/17 03:30 104 10 101/49 (66) 96 Room Air 12/14/17 03:15 110 14 105/60 (75) 94 Room Air 12/14/17 03:00 112 13 115/58 (77) 94 Room Air 12/14/17 02:45 111 11 80/50 (60) 94 Room Air 12/14/17 02:30 107 11 89/49 (62) 94 Room Air 12/14/17 02:15 114 11 92/46 (61) 94 Room Air 12/14/17 02:00 114 16 99/45 (63) 96 Room Air 12/14/17 01:00 122 12/14/17 01:00 122 17 100/56 (71) 96 Room Air 12/14/17 00:00 118 18 83/57 (66) 100 Room Air 12/13/17 23:57 Room Air 12/13/17 23:46 97.6 12/13/17 23:00 116 16 93/59 (70) 100 Room Air 12/13/17 22:10 98.3 12/13/17 22:00 115 13 146/78 (100) 100 Room Air 12/13/17 21:45 110 15 104/56 (72) 100 Room Air 12/13/17 21:30 128 14 145/67 (93) 100 Room Air 12/13/17 21:15 112 23 131/57 (81) 100 Room Air 12/13/17 21:00 110 11 117/94 (102) 100 Room Air 12/13/17 20:45 114 12 122/65 (84) 100 Room Air 12/13/17 20:30 106 13 119/72 (88) 99 Room Air 12/13/17 20:15 101 9 119/60 (79) 99 Room Air 12/13/17 20:06 Room Air 12/13/17 20:00 109 30 119/63 (81) 100 Room Air 12/13/17 19:46 110 12/13/17 19:45 96.8 12/13/17 19:45 110 11 98/51 (67) 94 Room Air 12/13/17 19:45 Room Air 12/13/17 19:42 118 102/45 (64) Room Air 12/13/17 19:29 103 20 105/52 98 12/13/17 19:01 97.9 113 11 101/50 100 12/13/17 16:50 96 Nasal Cannula 2.00 12/13/17 16:32 97.3 109 12 87/58 (68) 98 I & O 12/14/17 07:00 Intake Total 3955 ml Output Total 1550 ml Balance 2405 ml Height & Weight Height: 4'2.00" Weight: 103lbs. 4.2oz. 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 Bilateral BKA Hx of severe PVD WAQAS WALTER DO Dec 14, 2017 05:51
[2017-12-14] MEDS ORDERED: LACTATED RINGERS 1,000 ML IV SCH (06:30)
--- NOTE | 2017-12-14 07:10 | Diagnostic Imaging Report ---
Indication: Septic shock, UTI. Malignant hypercalcemia. Comparison: 12/13/2017. Findings: The density noted left mid lung is more dense today probable developing atelectasis as well on the left. Right lung is clear. There is no pleural effusion. The heart is not enlarged. There is no pulmonary edema. Right IJ line remains in good position. IMPRESSION: Increased density left midlung with some atelectasis now present as well. Dictated by: Dictated on workstation # [id number]
--- NOTE | 2017-12-14 07:49 | History & Physicial ---
History of Present Illness History of Present Illness Reason for visit/HPI Patient seen in office yesterday. Patient unable to give a good history. Temperature low. Hypertension. Patient not answering questions well. Patient lethargic. Patient sent out to the emergency room Patient has bilateral amputation. Patient this morning appears lethargic and unable to give a history and mumbling. Patient has elevated lactic acid. UTI. Patient's septic and admitted to ICU. Date of Admission Dec 13, 2017 at 18:51 Time Seen by Provider: 07:35 I consulted on this patient on 12/14/17 07:44 Attending Physician Humza Delvalle DO Admitting Physician Humza Delvalle DO Consult Allergies and Home Medications Allergies Coded Allergies: Iodinated Contrast- Oral and IV Dye (Verified Allergy, Intermediate, SWELLING HANDS AND FEET, 01/06/16) Penicillins (Verified Allergy, Mild, Pt has received Ceftriaxone & Cefazolin in the past, 10/07/17) codeine (Verified Allergy, Mild, Pt has taken Percocet w/o issue, 08/09/17) ibuprofen (Verified Allergy, Mild, 01/06/16) propoxyphene (Verified Allergy, Mild, 01/06/16) Sulfa (Sulfonamide Antibiotics) (Unverified Allergy, Unknown, 11/25/16) hydrocodone (Verified Adverse Reaction, Intermediate, NAUSEA, 01/06/16) per pt Home Medications Bethanechol Chloride 25 Mg Tablet, 50 MG PO ACHS Prescribed by: MYKEL ELIZABETH on 08/18/17 1444 Buspirone HCl 10 Mg Tablet, 10 MG PO BID PRN for anxiety Prescribed by: MYKEL ELIZABETH on 08/18/17 1444 Ergocalciferol (Vitamin D2) 50,000 Unit Capsule, 50,000 UNITS PO Th@0700 Prescribed by: MYKEL ELIZABETH on 08/18/17 1444 Insulin Determir 1,000 Units/10 Ml Soln, 12 UNIT SQ BID Prescribed by: MYKEL ELIZABETH on 08/18/17 1444 Nicotine 1 Each Patch.td24, 14 MG TD DAILY@0900 Prescribed by: MYKEL ELIZABETH on 08/18/17 1444 Ondansetron 4 Mg Tab.rapdis, 4 MG PO Q6H PRN for NAUSEA/VOMITING-1ST LINE Prescribed by: MYKEL ELIZABETH on 08/18/17 1444 Oxycodone HCl/Acetaminophen 1 Each Tablet, 2 EACH PO Q4H PRN for PAIN-MODERATE Prescribed by: MYKEL ELIZABETH on 08/18/17 1444 Pantoprazole Sodium 40 Mg Tablet.dr, 40 MG PO DAILY@0700 Prescribed by: MYKEL ELIZABETH on 08/18/17 1444 Tamsulosin HCl 0.4 Mg Cap, 0.4 MG PO DAILY@1800 Prescribed by: MYKEL ELIZABETH on 08/18/17 1444 Patient Home Medication List Home Medication List Reviewed: No Past Boacvzm-Spjvky-Evqign Hx Patient Social History Marrital Status: Employed/Student: retired Alcohol Use: Denies Use Recreational Drug Use: No Smoking Status: Current Everyday Smoker Type Used: Cigarettes 2nd Hand Smoke Exposure: No Physical Abuse Screen: No Sexual Abuse: No Recent Foreign Travel: No Contact w/other who traveled: No Recent Hopitalizations: Yes Recent Infectious Disease Expo: No Immunizations Up To Date Tetanus Booster (TDap): Less than 5yrs Pediatric: No Date of Pneumonia Vaccine: Jan 10, 2016 Date of Influenza Vaccine: Jan 10, 2016 Seasonal Allergies Seasonal Allergies: Yes Surgeries Yes (BILAT BKA, SEWED RIGHT INDEX FINGER TEENAG) Amputation, Orthopedic Respiratory Yes Asthma, COPD Currently Using CPAP: No Currently Using BIPAP: No Cardiovascular Yes High Cholesterol, Hypertension, Peripheral Vascular Neurological Yes Dementia, Neuropathy Reproductive System Hx Reproductive Disorders: No Sexually Transmitted Disease: No HIV/AIDS: No 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 Genitourinary Yes (chronic kidney disease, urinary retention) Kidney Stones, UTI-Chronic Gastrointestinal Yes Gastroesophageal Reflux, Pancreatitis Musculoskeletal Yes Amputee, Osteoporosis, Arthritis Endocrine History of Endocrine Disorders: Yes (Non-compliant DM) Endocrine Disorders: Diabetes, Non-Insulin dep HEENT History of HEENT Disorders: Yes HEENT Disorders: Cataract Loss of Vision: Denies Hearing Impairment: Denies Cancer No Psychosocial History of Psychiatric Problem: Yes Behavioral Health Disorders: Anxiety, Depression Integumentary History of Skin or Integumenta: Yes (DIABETIC ULCERS, CHRONIC CELLULITIS) Blood Transfusions History of Blood Disorders: No Adverse Reaction to a Blood Tr: No Family Medical History Significant Family History: No Pertinent Family Hx Other Significan Family Hx: All history per records as patient has altered mental status. Family Hx: Patient reports no known family medical history. Review of Systems Constitutional: malaise, weakness, other (Confusion, altered mental status) EENTM: no symptoms reported Respiratory: no symptoms reported Cardiovascular: no symptoms reported Gastrointestinal: no symptoms reported Genitourinary: no symptoms reported Physical Exam Vital Signs Vital Signs - First Documented 12/13/17 12/13/17 16:32 16:50 Temp 97.3 Pulse 109 Resp 12 B/P (MAP) 87/58 (68) Pulse Ox 98 O2 Delivery Nasal Cannula O2 Flow Rate 2.00 Capillary Refill : Less Than 3 Seconds Height, Weight, BMI Height: 4'2.00" Weight: 103lbs. 4.2oz. 46.043353cd; 30.1 BMI Method:Estimated General Appearance: No Apparent Distress, Thin Eyes: Bilateral Eye Normal Inspection HEENT: Normal ENT Inspection Neck: Normal Inspection, Non Tender Respiratory: Lungs Clear, No Accessory Muscle Use, No Respiratory Distress Cardiovascular: Regular Rate, Rhythm Gastrointestinal: Non Tender, Soft Assessment/Plan Assessment and Plan Septic shock. Altered mental status. UTI. Hypothermia. Acute renal failure. Hypomagnesemia. Anemia. Diabetes Admission Diagnosis Admission Status: Inpatient Order (span 2 midnights) Reason for Inpatient Admission: 6 septic shock. UTI. Diabetes. Altered mental status. Clinical Quality Measures DVT/VTE Risk/Contraindication: Risk Factor Score Per Nursin RFS Level Per Nursing on Admit: 3=High HUMZA DELVALLE DO Dec 14, 2017 07:49
[2017-12-14] MEDS ORDERED: ENOXAPARIN 40 MG/0.4 ML (LOVENOX) SYR SC SCH (08:00)
[2017-12-14] MEDS: RT-ALBUTEROL SULF 2.5 MG/3 ML PRE-MIX VIAL INH SCH ×2 (08:22→20:32)
--- NOTE | 2017-12-14 08:32 | Diagnostic Imaging Report ---
PROCEDURE: CT chest without contrast. TECHNIQUE: Multiple contiguous axial images were obtained through the chest without the use of intravenous contrast. INDICATION: Septic shock and questionable mass in the left lung. Comparison is made with recent chest radiographs from one day earlier. No axillary lymphadenopathy is detected. Mediastinal and hilar evaluation is limited due to absence of intravenous contrast. There is a suggestion of soft tissue fullness in the mediastinum. Right paratracheal soft tissue suggestive of lymphadenopathy measures approximately 2 cm. There is also soft tissue fullness in the subcarinal region measuring up to 2.2 cm short axis. There are mildly prominent lymph nodes in the AP window and prevascular space. No pericardial or pleural fluid is identified. There is an opacity in the left upper lobe corresponding to the chest radiographic abnormality. This extends from the anterolateral pleural surface to the left hilum measuring 5.6 x 2.2 cm. This is indeterminate between an area of consolidation versus mass. Remainder of the lung ortiz are clear. Upper abdomen does show some dilatation of bilateral renal collecting systems, indeterminate etiology. Bone windows do show apparent lytic lesions involving numerous thoracic vertebral bodies as well as upper lumbar vertebral bodies, suggestive of either myeloma or metastatic disease. No acute compression is seen. IMPRESSION: 1. Indeterminate area of parenchymal density in the left upper lobe, correlating with the chest radiographic abnormality. This may represent consolidation versus mass. There does appear to be some bulky adenopathy in the mediastinum, however, which is concerning for neoplasm. In addition, there are numerous lytic lesions involving thoracic and upper lumbar vertebral bodies, concerning for either metastatic disease or myeloma. MRI of the thoracic and lumbar spine may be useful for further characterization of the spinal lesions. Consideration could also be given to performance of a PET scan. Dictated by: Dictated on workstation # [id number]
[2017-12-14] MEDS ORDERED: LACTATED RINGERS 1,000 ML IV ONE ×3 (09:19→14:45)
[2017-12-14] MEDS: LINEZOLID IVPB 300 ML IV SCH ×2 (09:41→20:10)
[2017-12-14] MEDS ORDERED: INSU100V5 SQ (10:15)
[2017-12-14] MEDS ORDERED: AMLO10TA6 PO (10:15)
[2017-12-14] MEDS ORDERED: ERGO50006 PO (10:15)
[2017-12-14] MEDS ORDERED: MICO1COM VG (10:15)
[2017-12-14] MEDS ORDERED: ACET325T38 PO (10:15)
[2017-12-14] MEDS ORDERED: NICO-587 TD (10:15)
[2017-12-14] MEDS ORDERED: FLUC100T6 PO (10:15)
[2017-12-14] MEDS ORDERED: MAG-10 PO (10:15)
[2017-12-14] MEDS ORDERED: PANT40TA2 PO (10:15)
[2017-12-14] MEDS ORDERED: LISI40TA PO (10:15)
[2017-12-14] MEDS ORDERED: METO50TA15 PO (10:15)
[2017-12-14] MEDS ORDERED: ONDA4TAB8 SL (10:15)
[2017-12-14] MEDS ORDERED: CIPR500T4 PO (10:15)
[2017-12-14] MEDS ORDERED: BUSP10TA95 PO (10:15)
[2017-12-14] MEDS ORDERED: meTOprolol 5 MG/5 ML (LOPRESSOR) VIAL ONE (10:19)
[2017-12-14] MEDS ORDERED: meTOprolol 5 MG/5 ML (LOPRESSOR) VIAL IV ONE (10:30)
--- NOTE | 2017-12-14 11:42 | Consultation-Cardiology ---
HPI-Cardiology Cardiology Consultation Date of Consultation 12/14/17 Date of Admission Time Seen by Provider: 11:33 Indication: Tachycardia HPI 72 years old lady with history of bilateral BKA, was seen in Dr. Garnett's office and sent to the emergency room due to lethargy and change in mental status, she was noted to be septic with borderline hypotension, started on pressors. Started on antibiotics. This morning she became tachycardic with sinus tachycardia and heart rate 130. She received IV fluids. She is unable to provide history she is moaning. Did not respond to verbal or tactile stimuli. Was hypothermic initially on arrival to the emergency room. No reported chest pain. [facility] her [facility] conditions Home Medications & Allergies Allergies: Coded Allergies: Iodinated Contrast- Oral and IV Dye (Verified Allergy, Intermediate, SWELLING HANDS AND FEET, 01/06/16) Penicillins (Verified Allergy, Mild, Pt has received Ceftriaxone & Cefazolin in the past, 10/07/17) codeine (Verified Allergy, Mild, Pt has taken Percocet w/o issue, 08/09/17) ibuprofen (Verified Allergy, Mild, 01/06/16) propoxyphene (Verified Allergy, Mild, 01/06/16) Sulfa (Sulfonamide Antibiotics) (Unverified Allergy, Unknown, 11/25/16) hydrocodone (Verified Adverse Reaction, Intermediate, NAUSEA, 01/06/16) per pt Home Medication List Reviewed: Yes YKR-Eebhbr-Pdrosu Hx Patient Social History Marital Status: Employed/Student: retired Alcohol Use: Denies Use Recreational Drug Use: No Smoking Status: Current Everyday Smoker Type Used: Cigarettes 2nd Hand Smoke Exposure: No Recent Foreign Travel: No Recent Infectious Disease Expo: No Recent Hopitalizations: Yes Physical Abuse Screen: No Sexual Abuse: No Immunizations Up To Date Tetanus Booster (TDap): Less than 5yrs Date of Pneumonia Vaccine: Jan 10, 2016 Date of Influenza Vaccine: Jan 10, 2016 Past Medical History Past medical history as described below Family Medical History Significant Family History: No Pertinent Family Hx Family Medical Hx Unable to provide family history Family History: Patient reports no known family medical history. Review of Systems Constitutional: malaise, weakness, other (Unable to provide review of system, patient is moaning in bed. Not responding to verbal stimuli) Reviewed Test Results Reviewed Test Results Lab Laboratory Tests Test 12/13/17 16:15 12/13/17 16:30 12/13/17 18:44 12/14/17 03:15 Range/Units White Blood Count 16.9 H 13.5 H 4.3-11.0 10^3/uL Red Blood Count 4.79 3.55 L 4.35-5.85 10^6/uL Hemoglobin 12.6 9.6 #L 11.5-16.0 G/DL Hematocrit 39 29 L 35-52 % Mean Corpuscular Volume 81 82 80-99 FL Mean Corpuscular Hemoglobin 26 27 25-34 PG Mean Corpuscular Hemoglobin Concent 32 33 32-36 G/DL Red Cell Distribution Width 21.7 H 21.1 H 10.0-14.5 % Platelet Count 186 138 130-400 10^3/uL Mean Platelet Volume 10.3 10.1 7.4-10.4 FL Neutrophils (%) (Auto) 71 74 42-75 % Lymphocytes (%) (Auto) 22 19 12-44 % Monocytes (%) (Auto) 6 6 0-12 % Eosinophils (%) (Auto) 1 1 0-10 % Basophils (%) (Auto) 0 0 0-10 % Neutrophils # (Auto) 12.1 H 10.1 H 1.8-7.8 X 10^3 Lymphocytes # (Auto) 3.8 2.6 1.0-4.0 X 10^3 Monocytes # (Auto) 0.9 0.8 0.0-1.0 X 10^3 Eosinophils # (Auto) 0.1 0.1 0.0-0.3 10^3/uL Basophils # (Auto) 0.1 0.0 0.0-0.1 10^3/uL Neutrophils % (Manual) 57 % Lymphocytes % (Manual) 27 % Monocytes % (Manual) 7 % Eosinophils % (Manual) 0 % Basophils % (Manual) 1 % Band Neutrophils 8 % Blood Morphology Comment NORMAL Prothrombin Time 14.7 17.0 H 12.2-14.7 SEC INR Comment 1.1 1.4 0.8-1.4 Activated Partial Thromboplast Time 26 32 24-35 SEC Sodium Level 137 137 135-145 MMOL/L Potassium Level 5.1 H 4.6 3.6-5.0 MMOL/L Chloride Level 103 111 H 98-107 MMOL/L Carbon Dioxide Level 21 15 L 21-32 MMOL/L Anion Gap 13 11 5-14 MMOL/L Blood Urea Nitrogen 40 H 35 H 7-18 MG/DL Creatinine 1.90 H 1.75 H 0.60-1.30 MG/DL Estimat Glomerular Filtration Rate 26 28 BUN/Creatinine Ratio 21 20 Glucose Level 68 L 61 L 70-105 MG/DL Lactic Acid Level 3.38 *H 0.87 0.50-2.00 MMOL/L Calcium Level 14.7 *H 11.8 H 11.7 H 8.5-10.1 MG/DL Corrected Calcium 15.1 H 12.8 H 8.5-10.1 MG/DL Total Bilirubin 0.4 0.3 0.1-1.0 MG/DL Aspartate Amino Transf (AST/SGOT) 60 H 48 H 5-34 U/L Alanine Aminotransferase (ALT/SGPT) 19 17 0-55 U/L Alkaline Phosphatase 249 H 169 H 40-136 U/L Total Protein 8.2 5.9 L 6.4-8.2 GM/DL Albumin 3.5 2.6 L 3.2-4.5 GM/DL Lipase 568 H 8-78 U/L Urine Color YELLOW Urine Clarity VERY CLOUDY H Urine pH 6.5 5-9 Urine Specific [place] 1.010 L 1.016-1.022 Urine Protein 3+ H NEGATIVE Urine Glucose (UA) NEGATIVE NEGATIVE Urine Ketones NEGATIVE NEGATIVE Urine Nitrite NEGATIVE NEGATIVE Urine Bilirubin NEGATIVE NEGATIVE Urine Urobilinogen NORMAL NORMAL MG/DL Urine Leukocyte Esterase 3+ H NEGATIVE Urine RBC (Auto) 4+ H NEGATIVE Urine RBC 10-25 H /HPF Urine WBC >100 H /HPF Urine Crystals NONE /LPF Urine Bacteria FEW H /HPF Urine Casts NONE /LPF Urine Mucus NEGATIVE /LPF Urine Culture Indicated YES Phosphorus Level 3.5 2.3-4.7 MG/DL Magnesium Level 1.7 L 1.8-2.4 MG/DL Smear Scan YES Test 12/14/17 03:20 12/14/17 04:49 12/14/17 09:30 12/14/17 11:06 Range/Units Lactic Acid Level 1.03 0.50-2.00 MMOL/L Glucometer 76 184 H 70-110 MG/DL Troponin I < 0.30 <0.30 NG/ML Physical Exam Vital Signs Vital Signs - First Documented 12/13/17 12/13/17 16:32 16:50 Temp 97.3 Pulse 109 Resp 12 B/P (MAP) 87/58 (68) Pulse Ox 98 O2 Delivery Nasal Cannula O2 Flow Rate 2.00 Capillary Refill : Less Than 3 Seconds Height, Weight, BMI Height: 4'2.00" Weight: 103lbs. 4.2oz. 46.226110dt; 30.1 BMI Method:Estimated General Appearance: WD/WN, Severe Distress Eyes: Bilateral Eye Normal Inspection, Bilateral Eye PERRL, Bilateral Eye EOMI HEENT: TMs Normal, Normal ENT Inspection, Pharynx Normal Neck: Normal Inspection, Supple, Carotid Bruit Respiratory: Chest Non Tender, No Respiratory Distress, Crackles Cardiovascular: No Edema, No JVD, No Murmur, Gallop/S3, Tachycardia, Other ( Bilateral BKA) Gastrointestinal: Normal Bowel Sounds, No Organomegaly, No Pulsatile Mass, Soft , Tenderness (In the lower abdomen) Back: Normal Inspection Extremity: Non Tender, Other (Bilateral BKA) Neurologic/Psychiatric: Other (Moaning in bed, not responsive to verbal stimuli ) Skin: Normal Color, Warm/Dry Lymphatic: No Adenopathy A/P-Cardiology Admission Diagnosis Sepsis Supraventricular tachycardia Hypotensive shock Coronary artery disease Assessment/Plan Acute change in mental status, had a similar event in September 2017, probably secondary to sepsis and hypotension. Receiving IV fluid and antibiotics. Continue to monitor Supraventricular tachycardia, most probably sinus tach secondary to sepsis. Received IV fluid. I gave her 5 mg of IV Lopressor which helped slowing down her heart slightly. I will evaluate 2-D echocardiogram. History of musculoskeletal she is pain, pleuritic chest pain and history of compression fractures. Questionable pulmonary consolidation, receiving antibiotics. Managed by primary care team. Cardiac catheterization done in September 2017 showing mild coronary artery disease nonobstructive disease. Continue to monitor Malignant hypertension, now hypotensive, receiving IVF, blood pressure improving slowly. Continue to monitor Pulmonary nodule, infiltrate versus neoplasm, questionable metastases on bone scan, managed by Dr. Alfred Compression fracture, had an MRI, managed by medical team. CT of the head was negative in the previous admission. 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 Followed and managed by primary care physician History of noncompliance with medications. Clinical Quality Measures DVT/VTE Risk/Contraindication: Risk Factor Score Per Nursin RFS Level Per Nursing on Admit: 3=High Contraindications-Mechi: Other *list below* MEGAN KENDRICK MD Dec 14, 2017 11:41
[2017-12-14 13:57] LABS: ABG BASE EXCESS -4.8 MMOL/L (-2.5-2.5); ABG OXYGEN SATURATION 97 % (94-100); ABG PCO2 31 MMHG (35-45); ABG PH 7.41 (7.37-7.43); ABG PO2 87 MMHG (79-93); ABG TCO2 19.7 MMOL/L (21.0-31.0)
[2017-12-14 13:58] LABS: ALLENS TEST POSITIVE; PATIENT TEMP 100.8; VENTILATOR NO
[2017-12-14] MEDS: CEFEPIME 2 GM/NS 50 ML IVPB IV SCH ×2 (16:10)
[2017-12-15] VITALS (15 sets, daily range): BP systolic 96–112; BP diastolic 46–79
[2017-12-15] MEDS: VASOPRESSIN INJECTION 20 UNIT in NS (IVPB) 100 ML IV SCH (01:07)
[2017-12-15] MEDS: NOREPINEPHRINE 4 MG in NS (IVPB) 250 ML IV SCH (01:07)
[2017-12-15 04:07] LABS: BASOPHILS % (AUTO) 0 % (0-10); EOSINOPHILS # (AUTO) 0.2 10^3/uL (0.0-0.3); EOSINOPHILS % (AUTO) 2 % (0-10); HEMATOCRIT 26 % (35-52); HEMOGLOBIN 8.2 G/DL (11.5-16.0); LYMPHOCYTES # (AUTO) 1.7 X 10^3 (1.0-4.0); LYMPHOCYTES % (AUTO) 17 % (12-44); MEAN CORPUSCULAR HEMOGLOBIN 26 PG (25-34); MEAN CORPUSCULAR HGB CONC 31 G/DL (32-36); MEAN CORPUSCULAR VOLUME 82 FL (80-99); MEAN PLATELET VOLUME 9.5 FL (7.4-10.4); MONOCYTES # (AUTO) 0.7 X 10^3 (0.0-1.0); MONOCYTES % (AUTO) 6 % (0-12); NEUTROPHILS # (AUTO) 7.5 X 10^3 (1.8-7.8); NEUTROPHILS % (AUTO) 74 % (42-75); PLATELET COUNT 88 10^3/uL (130-400); RED BLOOD COUNT 3.17 10^6/uL (4.35-5.85); RED CELL DISTRIBUTION WIDTH 21.2 % (10.0-14.5); WHITE BLOOD COUNT 10.1 10^3/uL (4.3-11.0)
[2017-12-15 04:31] LABS: ALBUMIN 2.2 GM/DL (3.2-4.5); BILIRUBIN,TOTAL 0.3 MG/DL (0.1-1.0); CALCIUM 9.5 MG/DL (8.5-10.1); CREATININE SERUM 1.37 MG/DL (0.60-1.30); MAGNESIUM 1.7 MG/DL (1.8-2.4); PHOSPHORUS 2.3 MG/DL (2.3-4.7); POTASSIUM 3.8 MMOL/L (3.6-5.0); TOTAL PROTEIN 5.1 GM/DL (6.4-8.2)
[2017-12-15] MEDS: POTASSIUM CL 10MEQ/50ML IVPB 50 ML IV SCH (04:36)
[2017-12-15] MEDS: KCL 20 MEQ TAB (K-DUR) PO SCH (04:36)
[2017-12-15] MEDS: MAGNESIUM 1 GM/100 ML IVPB 100 ML IV SCH ×3 (04:37→06:10)
[2017-12-15] MEDS: inSUlin ASPART (NovoLOG) 1 UNIT/0.01 ML (CHARGE PER UNIT) SC SCH ×4 (05:04→20:27)
--- NOTE | 2017-12-15 06:02 | Pulmonary Progress Note ---
Subjective Time Seen by Provider: 06:02 Subjective/Events-last exam Pt is alert and answering questions. Sepsis Event Evaluation Height, Weight, BMI Height: 4'2.00" Weight: 103lbs. 4.2oz. 46.032624ci; 30.1 BMI Method:Estimated Focused Exam Lactate Level 12/13/17 16:15: Lactic Acid Level 3.38*H 12/13/17 18:44: Lactic Acid Level 0.87 12/14/17 03:20: Lactic Acid Level 1.03 Exam Exam Vital Signs Date Time Temp Pulse Resp B/P (MAP) Pulse Ox O2 Delivery O2 Flow Rate FiO2 12/15/17 05:00 96 17 98/51 (67) 97 Room Air 12/15/17 04:03 97.0 12/15/17 04:00 95 25 96/50 (65) 95 Room Air 12/15/17 04:00 96 Room Air 12/15/17 03:00 96 13 99/50 (66) 96 Room Air 12/15/17 02:00 98 14 107/53 (71) 96 Room Air 12/15/17 01:00 101 14 98/49 (65) 97 Room Air 12/15/17 01:00 101 12/15/17 00:00 101 38 103/46 (65) 95 Room Air 12/14/17 23:34 96 Room Air 12/14/17 23:30 97.8 12/14/17 23:00 102 12 102/44 (63) 96 Room Air 12/14/17 22:00 112 19 97/54 (68) 96 Room Air 12/14/17 21:00 102 15 100/44 (62) 96 Room Air 12/14/17 20:37 96 Room Air 12/14/17 20:00 108 18 102/48 (66) 96 Room Air 12/14/17 19:35 96 Room Air 12/14/17 19:33 98.8 12/14/17 19:00 102 16 99/50 (66) 94 Room Air 12/14/17 19:00 102 12/14/17 18:00 108 16 92/47 (62) 94 Room Air 12/14/17 17:00 108 18 98/49 (65) 93 Room Air 12/14/17 16:10 Room Air 12/14/17 16:00 99.5 105 18 93/44 (60) 94 Room Air 12/14/17 16:00 108 18 93/44 (60) 93 Room Air 12/14/17 15:00 109 17 91/44 (60) 93 Room Air 12/14/17 14:30 99.3 12/14/17 14:00 114 19 97/46 (63) 96 Room Air 12/14/17 13:59 100.8 12/14/17 13:53 100.8 Room Air 12/14/17 13:00 108 16 95/51 (66) 96 Room Air 12/14/17 12:49 107 12/14/17 12:00 111 20 115/53 (73) 95 Room Air 12/14/17 11:12 108 22 112/59 (76) 95 Room Air 12/14/17 11:10 Room Air 12/14/17 11:07 99.6 Room Air 12/14/17 11:00 101 21 84/54 (64) 95 Room Air 12/14/17 10:00 137 17 114/52 (72) 95 Room Air 12/14/17 10:00 137 17 114/52 (72) 95 Room Air 12/14/17 09:00 130 16 115/54 (74) 95 Room Air 12/14/17 09:00 130 16 115/54 (74) 95 Room Air 12/14/17 08:24 94 Room Air 12/14/17 08:00 121 23 108/86 (93) Room Air 12/14/17 08:00 121 23 108/86 (93) Room Air 12/14/17 07:45 Room Air 12/14/17 07:43 99.0 Room Air 12/14/17 07:00 100 12 128/57 (80) 97 Room Air 12/14/17 07:00 100 12 128/57 (80) 97 Room Air 12/14/17 07:00 100 12/14/17 06:00 98 17 113/57 (75) 96 Room Air I & O 12/15/17 06:59 Intake Total 5850 ml Output Total 2385 ml Balance 3465 ml Height & Weight Height: 4'2.00" Weight: 103lbs. 4.2oz. 46.609879sd; 30.1 BMI Method:Estimated General Appearance: No Apparent Distress, WD/WN, Anxious HEENT: TMs Normal, Normal ENT Inspection, Pharynx Normal Neck: Normal Inspection, Supple, Carotid Bruit Respiratory: Chest Non Tender, No Respiratory Distress, Crackles Cardiovascular: No Edema, No JVD, No Murmur, Gallop/S3, Tachycardia, Other ( Bilateral BKA) Capillary Refill: Less Than 3 Seconds Extremity: Non Tender, Other (Bilateral BKA) Neurologic/Psychiatric: Other (Moaning in bed, not responsive to verbal stimuli ) Skin: Normal Color, Warm/Dry Lymphatic: No Adenopathy Results Lab Laboratory Tests 12/13/17 16:15 12/14/17 03:15 12/15/17 03:58 Assessment/Plan Assessment/Plan Severe sepsis with shock -IVF 50cc/hr -Capellan cultures pending Atelectasis vs pneumonia vs mass -CT of chest is suggestive of cancer -I discussed with patient regarding bronchoscopy for tissue diagnosis. She does not want any aggressive testing or procedures. She understands if this is cancer it will get worse with out treatment. We also discussed hospice and she is seems to be interested in hospice care. I am going to consult hospice for education. 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 Bilateral BKA Hx of severe PVD -I discussed with patient regarding bronchoscopy for tissue diagnosis. She does not want any aggressive testing or procedures. She understands if this is cancer it will get worse with out treatment. We also discussed hospice and she is seems to be interested in hospice care. I am going to consult hospice for education. I have talked with Vamsi Phillips (hospice clinical manager), and [facility] regarding patient. Pt has not yet decided if she wants hospice yet however will give her info and resources to help make decision.60 min spent with patient and medical team discussing patient's care and medical plan. Critical Care: Critically Ill Patient Advance Care discuss with: patient End of Life Care: Comfort Measures, Pallative Care, Hospice (Hospital), Hospice Care (Home) Advance Care Discussion: initiate discussion, clarifying prognosis, identified end-of-life goals, developed treatment plan Time spent on discussion(mins): 60 WAQAS WALTER DO Dec 15, 2017 06:02
[2017-12-15] MEDS: LACTATED RINGERS 1,000 ML IV SCH ×2 (06:09→17:53)
--- NOTE | 2017-12-15 07:13 | Progress Note (SOAP) ---
Subjective Time Seen by Provider: 07:10 Subjective/Events-last exam Feeling much better today. Told patient about the CAT scan report with lytic lesions and pulmonary mass. Patient does not want anything done. Patient wants to go to hospice Focused Exam Lactate Level 12/13/17 16:15: Lactic Acid Level 3.38*H 12/13/17 18:44: Lactic Acid Level 0.87 12/14/17 03:20: Lactic Acid Level 1.03 Objective Exam Vital Signs Date Time Temp Pulse Resp B/P (MAP) Pulse Ox O2 Delivery O2 Flow Rate FiO2 12/15/17 06:00 94 16 105/79 (88) 100 Room Air 12/15/17 05:00 96 17 98/51 (67) 97 Room Air 12/15/17 04:03 97.0 12/15/17 04:00 95 25 96/50 (65) 95 Room Air 12/15/17 04:00 96 Room Air 12/15/17 03:00 96 13 99/50 (66) 96 Room Air 12/15/17 02:00 98 14 107/53 (71) 96 Room Air 12/15/17 01:00 101 14 98/49 (65) 97 Room Air 12/15/17 01:00 101 12/15/17 00:00 101 38 103/46 (65) 95 Room Air 12/14/17 23:34 96 Room Air 12/14/17 23:30 97.8 12/14/17 23:00 102 12 102/44 (63) 96 Room Air 12/14/17 22:00 112 19 97/54 (68) 96 Room Air 12/14/17 21:00 102 15 100/44 (62) 96 Room Air 12/14/17 20:37 96 Room Air 12/14/17 20:00 108 18 102/48 (66) 96 Room Air 12/14/17 19:35 96 Room Air 12/14/17 19:33 98.8 12/14/17 19:00 102 16 99/50 (66) 94 Room Air 12/14/17 19:00 102 12/14/17 18:00 108 16 92/47 (62) 94 Room Air 12/14/17 17:00 108 18 98/49 (65) 93 Room Air 12/14/17 16:10 Room Air 12/14/17 16:00 99.5 105 18 93/44 (60) 94 Room Air 12/14/17 16:00 108 18 93/44 (60) 93 Room Air 12/14/17 15:00 109 17 91/44 (60) 93 Room Air 12/14/17 14:30 99.3 12/14/17 14:00 114 19 97/46 (63) 96 Room Air 12/14/17 13:59 100.8 12/14/17 13:53 100.8 Room Air 12/14/17 13:00 108 16 95/51 (66) 96 Room Air 12/14/17 12:49 107 12/14/17 12:00 111 20 115/53 (73) 95 Room Air 12/14/17 11:12 108 22 112/59 (76) 95 Room Air 12/14/17 11:10 Room Air 12/14/17 11:07 99.6 Room Air 12/14/17 11:00 101 21 84/54 (64) 95 Room Air 12/14/17 10:00 137 17 114/52 (72) 95 Room Air 12/14/17 10:00 137 17 114/52 (72) 95 Room Air 12/14/17 09:00 130 16 115/54 (74) 95 Room Air 12/14/17 09:00 130 16 115/54 (74) 95 Room Air 12/14/17 08:24 94 Room Air 12/14/17 08:00 121 23 108/86 (93) Room Air 12/14/17 08:00 121 23 108/86 (93) Room Air 12/14/17 07:45 Room Air 12/14/17 07:43 99.0 Room Air I & O 12/15/17 07:00 Intake Total 5950 ml Output Total 2385 ml Balance 3565 ml Capillary Refill : Less Than 3 Seconds General Appearance: No Apparent Distress, Thin, Other (Patient orientated today ) HEENT: Normal ENT Inspection Neck: Full Range of Motion, Normal Inspection Respiratory: No Accessory Muscle Use, No Respiratory Distress Cardiovascular: Regular Rate, Rhythm, No Murmur Gastrointestinal: non tender, soft Results Lab Laboratory Tests 12/15/17 03:58 Laboratory Tests 12/14/17 09:30: Troponin I < 0.30 12/14/17 11:06: Glucometer 184H 12/14/17 13:50: Blood Gas Puncture Site RIGHT RADIAL, Blood Gas Patient Temperature 100.8, Arterial Blood pH 7.41, Arterial Blood Partial Pressure CO2 31L, Arterial Blood Partial Pressure O2 87, Arterial Blood HCO3 19L, Arterial Blood Total CO2 19.7L , Arterial Blood Oxygen Saturation 97, Arterial Blood Base Excess -4.8L, Paul Test POSITIVE, Blood Gas Ventilator Setting NO, Blood Gas Inspired Oxygen N/A 12/14/17 17:50: Glucometer 119H 12/14/17 23:29: Glucometer 162H 12/15/17 03:54: Glucometer 146H 12/15/17 03:58: White Blood Count 10.1, Red Blood Count 3.17L, Hemoglobin 8.2L, Hematocrit 26L, Mean Corpuscular Volume 82, Mean Corpuscular Hemoglobin 26, Mean Corpuscular Hemoglobin Concent 31L, Red Cell Distribution Width 21.2H, Platelet Count 88L, Mean Platelet Volume 9.5, Neutrophils (%) (Auto) 74, Lymphocytes (%) (Auto) 17, Monocytes (%) (Auto) 6, Eosinophils (%) (Auto) 2, Basophils (%) (Auto) 0, Neutrophils # (Auto) 7.5, Lymphocytes # (Auto) 1.7, Monocytes # (Auto) 0.7, Eosinophils # (Auto) 0.2, Basophils # (Auto) 0.0, Sodium Level 134L, Potassium Level 3.8, Chloride Level 108H, Carbon Dioxide Level 20L, Anion Gap 6, Blood Urea Nitrogen 22H, Creatinine 1.37H, Estimat Glomerular Filtration Rate 38, BUN/ Creatinine Ratio 16, Glucose Level 141H, Calcium Level 9.5, Corrected Calcium 10.9H, Phosphorus Level 2.3, Magnesium Level 1.7L, Total Bilirubin 0.3, Aspartate Amino Transf (AST/SGOT) 40H, Alanine Aminotransferase (ALT/SGPT) 13, Alkaline Phosphatase 142H, Total Protein 5.1L, Albumin 2.2L Microbiology 12/13/17 Blood Culture - Preliminary, Resulted No growth Assessment/Plan Assessment/Plan Assess & Plan/Chief Complaint Sepsis better. Pulmonary mass. Lytic lesions. Patient does not want anything down. Patient wants to go to hospice Clinical Quality Measures Admission Status Admission Dx Septic shock. Altered mental status. UTI. Hypothermia. Acute renal failure. Hypomagnesemia. Anemia. Diabetes DVT/VTE Risk/Contraindication: Risk Factor Score Per Nursin RFS Level Per Nursing on Admit: 3=High Contraindications-Mechi: Other *list below* MIKALA DELVALLE DO Dec 15, 2017 07:13
[2017-12-15] MEDS: RT-ALBUTEROL SULF 2.5 MG/3 ML PRE-MIX VIAL INH SCH ×2 (07:50→20:14)
--- NOTE | 2017-12-15 08:03 | Diagnostic Imaging Report ---
INDICATION: Malignant hypercalcemia. Portable chest 3:05 AM FINDINGS: Right jugular central line tip projects over the cavoatrial junction. There is a small patchy opacity in the left perihilar region. Right lung is clear. There is no effusion or pneumothorax. IMPRESSION: Left perihilar patchy infiltrate unchanged from previous day. Dictated by: Dictated on workstation # [id number]
[2017-12-15] MEDS: LINEZOLID (ZYVOX) 600 MG TAB PO SCH ×2 (08:20→20:27)
--- NOTE | 2017-12-15 14:04 | Cardiology Progress Note ---
Subjective Date Seen by Provider: Dec 15, 2017 Time Seen by Provider: 14:02 Subjective/Events-last exam Patient is laying down in bed, seen and evaluated, more awake and pleasant. Denied any chest pain. Review of Systems General: No Chills, No Night Sweats, No Fatigue, No Malaise, No Appetite, No Other HEENT: No Head Aches, No Visual Changes, No Eye Pain, No Ear Pain, No Dysphasia , No Sinus Congestion, No Post Nasal Drip, No Sore Throat, No Other Pulmonary: No Dyspnea, No Cough, No Pleuritic Chest Pain, No Other Cardiovascular: No: Chest Pain, Palpitations, Orthopnea, Paroxysmal Noc. Dyspnea, Edema, Lt Headedness, Other Focused Exam Lactate Level 12/13/17 16:15: Lactic Acid Level 3.38*H 12/13/17 18:44: Lactic Acid Level 0.87 12/14/17 03:20: Lactic Acid Level 1.03 Objective-Cardiology Exam Last Set of Vital Signs Vital Signs 12/13/17 12/15/17 12/15/17 16:50 11:50 12:13 Temp 98.1 Pulse 93 Resp 18 B/P (MAP) 106/57 (73) Pulse Ox 95 O2 Delivery Room Air O2 Flow Rate 2.00 Capillary Refill : Less Than 3 Seconds I&O Intake and Output 12/15/17 00:00 Intake Total 7650 ml Output Total 2085 ml Balance 5565 ml Intake Oral 100 ml IV Total 7550 ml Output Urine Total 2085 ml General: Alert, Cooperative HEENT: Atraumatic, PERRLA Neck: Supple, No JVD, No Thyromegaly Lungs: Normal Air Movement, Other (bilateral rhonchi) Heart: Regular Rate, Normal S1, Normal S2, No Murmurs Abdomen: Normal Bowel Sounds, Soft, No Tenderness, No Hepatosplenomegaly, No Masses Extremities: Other (bilateral BKA) Skin: No Rashes, No Breakdown, No Significant Lesion Psych/Mental Status: Mental Status NL, Mood NL Results Lab Laboratory Tests 12/15/17 03:58 A/P-Cardiology Admission Diagnosis Sepsis Supraventricular tachycardia Hypotensive shock Coronary artery disease Assessment/Plan Status post Acute change in mental status, had a similar event in September 2017, better at this time. Managed by primary care team Lung mass with metastatic lesions, lytic lesions, patient requested to be on hospice care. Supraventricular tachycardia, most probably sinus tach secondary to sepsis. Better at this time. Continue to monitor History of musculoskeletal she is pain, pleuritic chest pain and history of compression fractures. Questionable pulmonary consolidation, receiving antibiotics. Managed by primary care team. Cardiac catheterization done in September 2017 showing mild coronary artery disease nonobstructive disease. Continue to monitor Malignant hypertension, better at this time. Continue to monitor Pulmonary nodule, infiltrate versus neoplasm, questionable metastases on bone scan, managed by Dr. Alfred Compression fracture, had an MRI, managed by medical team. CT of the head was negative in the previous admission. 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 Followed and managed by primary care physician History of noncompliance with medications. Clinical Quality Measures DVT/VTE Risk/Contraindication: Risk Factor Score Per Nursin RFS Level Per Nursing on Admit: 3=High Contraindications-Mechi: Other *list below* MEGAN KENDRICK MD Dec 15, 2017 14:04
[2017-12-15] MEDS: CEFEPIME 2 GM/NS 50 ML IVPB IV SCH ×2 (17:00)
[2017-12-16] MEDS: LACTATED RINGERS 1,000 ML IV SCH ×2 (00:31→07:14)
[2017-12-16 04:18] VITALS: BP 106/57
[2017-12-16 06:27] LABS: BASOPHILS % (AUTO) 0 % (0-10); EOSINOPHILS # (AUTO) 0.2 10^3/uL (0.0-0.3); EOSINOPHILS % (AUTO) 2 % (0-10); HEMATOCRIT 26 % (35-52); HEMOGLOBIN 8.6 G/DL (11.5-16.0); LYMPHOCYTES # (AUTO) 1.8 X 10^3 (1.0-4.0); LYMPHOCYTES % (AUTO) 18 % (12-44); MEAN CORPUSCULAR HEMOGLOBIN 27 PG (25-34); MEAN CORPUSCULAR HGB CONC 33 G/DL (32-36); MEAN CORPUSCULAR VOLUME 81 FL (80-99); MEAN PLATELET VOLUME 10.3 FL (7.4-10.4); MONOCYTES # (AUTO) 0.6 X 10^3 (0.0-1.0); MONOCYTES % (AUTO) 6 % (0-12); NEUTROPHILS # (AUTO) 7.2 X 10^3 (1.8-7.8); NEUTROPHILS % (AUTO) 74 % (42-75); PLATELET COUNT 78 10^3/uL (130-400); RED BLOOD COUNT 3.24 10^6/uL (4.35-5.85); RED CELL DISTRIBUTION WIDTH 21.3 % (10.0-14.5); WHITE BLOOD COUNT 9.8 10^3/uL (4.3-11.0)
[2017-12-16 06:42] LABS: ALBUMIN 2.3 GM/DL (3.2-4.5); BILIRUBIN,TOTAL 0.3 MG/DL (0.1-1.0); CALCIUM 8.3 MG/DL (8.5-10.1); CREATININE SERUM 0.97 MG/DL (0.60-1.30); PHOSPHORUS 1.2 MG/DL (2.3-4.7); POTASSIUM 3.4 MMOL/L (3.6-5.0); TOTAL PROTEIN 5.2 GM/DL (6.4-8.2)
--- NOTE | 2017-12-16 06:59 | Pulmonary Progress Note ---
Subjective Time Seen by Provider: 06:54 Sepsis Event Evaluation Height, Weight, BMI Height: 4'2.00" Weight: 114lbs. 14.4oz. 52.001630fy; 30.1 BMI Method:Estimated Focused Exam Lactate Level 12/13/17 16:15: Lactic Acid Level 3.38*H 12/13/17 18:44: Lactic Acid Level 0.87 12/14/17 03:20: Lactic Acid Level 1.03 Exam Exam Vital Signs Date Time Temp Pulse Resp B/P (MAP) Pulse Ox O2 Delivery O2 Flow Rate FiO2 12/16/17 04:18 98.8 93 18 106/57 (73) 96 Room Air 12/16/17 01:00 86 12/15/17 23:37 98.1 94 18 112/59 (76) 97 Room Air 12/15/17 20:14 95 Room Air 12/15/17 20:00 Room Air 12/15/17 19:47 93 12/15/17 19:00 97.3 96 16 106/53 (70) 97 Room Air 12/15/17 17:28 97.0 91 18 105/57 (73) 96 Room Air 12/15/17 16:00 97.0 91 18 105/57 (73) 96 Room Air 12/15/17 13:00 91 12/15/17 12:13 Room Air 12/15/17 11:50 98.1 93 18 106/57 (73) 95 Room Air 12/15/17 10:00 94 17 96 Room Air 12/15/17 09:00 101 20 98/51 (67) 95 Room Air 12/15/17 07:51 96 Room Air 12/15/17 07:30 Room Air 12/15/17 07:27 96.2 96 15 107/52 (70) 96 Room Air 12/15/17 07:00 94 12/15/17 07:00 91 16 105/79 (88) 97 Room Air I & O 12/16/17 07:00 Intake Total 720 ml Output Total 2400 ml Balance -1680 ml Height & Weight Height: 4'2.00" Weight: 114lbs. 14.4oz. 52.637750en; 30.1 BMI Method:Estimated General Appearance: No Apparent Distress, WD/WN, Anxious HEENT: TMs Normal, Normal ENT Inspection, Pharynx Normal Neck: Normal Inspection, Supple, Carotid Bruit Respiratory: Chest Non Tender, No Respiratory Distress, Crackles Cardiovascular: No Edema, No JVD, No Murmur, Gallop/S3, Tachycardia, Other ( Bilateral BKA) Capillary Refill: Less Than 3 Seconds Gastrointestinal: non tender, soft Extremity: Non Tender, Other (Bilateral BKA) Neurologic/Psychiatric: Other (Moaning in bed, not responsive to verbal stimuli ) Skin: Normal Color, Warm/Dry Lymphatic: No Adenopathy Results Lab Laboratory Tests 12/15/17 03:58 12/16/17 06:10 Assessment/Plan Assessment/Plan Severe sepsis with shock -IVF 50cc/hr -Capellan cultures pending Atelectasis vs pneumonia vs mass -CT of chest is suggestive of cancer -I discussed with patient regarding bronchoscopy for tissue diagnosis. She does not want any aggressive testing or procedures. She understands if this is cancer it will get worse with out treatment. -PT has decided she does not want hospice at this point. I will revisit bronchoscopy once pt is improved medically. 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 Bilateral BKA Hx of severe PVD WAQAS WALTER DO Dec 16, 2017 06:59
[2017-12-16] MEDS ORDERED: POTASSIUM PHOSPHATE INJ 30 MM in NS (IVPB) 250 ML IV NR (07:00)
[2017-12-16] MEDS: inSUlin ASPART (NovoLOG) 1 UNIT/0.01 ML (CHARGE PER UNIT) SC SCH (07:14)
[2017-12-16] MEDS ORDERED: KCL 10 MEQ TAB (MICRO K) PO NR ×2 (07:30→10:15)
--- NOTE | 2017-12-16 07:42 | Progress Note (SOAP) ---
Subjective Time Seen by Provider: 07:40 Subjective/Events-last exam Patient wants to go back to residential today. Patient does not want anything heroic done. Patient does not want hospice. Will have social services technician evaluate and try to discharge today as per patient's wishes. Patient stable Focused Exam Lactate Level 12/13/17 18:44: Lactic Acid Level 0.87 12/14/17 03:20: Lactic Acid Level 1.03 12/16/17 07:30: Lactic Acid Level Laboratory Tests Test 12/16/17 07:30 Objective Exam Vital Signs Date Time Temp Pulse Resp B/P (MAP) Pulse Ox O2 Delivery O2 Flow Rate FiO2 12/16/17 04:18 98.8 93 18 106/57 (73) 96 Room Air 12/16/17 01:00 86 12/15/17 23:37 98.1 94 18 112/59 (76) 97 Room Air 12/15/17 20:14 95 Room Air 12/15/17 20:00 Room Air 12/15/17 19:47 93 12/15/17 19:00 97.3 96 16 106/53 (70) 97 Room Air 12/15/17 17:28 97.0 91 18 105/57 (73) 96 Room Air 12/15/17 16:00 97.0 91 18 105/57 (73) 96 Room Air 12/15/17 13:00 91 12/15/17 12:13 Room Air 12/15/17 11:50 98.1 93 18 106/57 (73) 95 Room Air 12/15/17 10:00 94 17 96 Room Air 12/15/17 09:00 101 20 98/51 (67) 95 Room Air 12/15/17 07:51 96 Room Air I & O 12/16/17 07:00 Intake Total 720 ml Output Total 2400 ml Balance -1680 ml Capillary Refill : Less Than 3 Seconds General Appearance: No Apparent Distress, Thin HEENT: Normal ENT Inspection Neck: Full Range of Motion, Normal Inspection Respiratory: No Accessory Muscle Use, No Respiratory Distress Cardiovascular: Regular Rate, Rhythm, No Murmur Results Lab Laboratory Tests 12/16/17 06:10 Laboratory Tests 12/15/17 11:23: Glucometer 221H 12/15/17 17:10: Glucometer 267H 12/15/17 20:08: Glucometer 145H 12/16/17 05:20: Glucometer 130H 12/16/17 06:10: White Blood Count 9.8, Red Blood Count 3.24L, Hemoglobin 8.6L, Hematocrit 26L, Mean Corpuscular Volume 81, Mean Corpuscular Hemoglobin 27, Mean Corpuscular Hemoglobin Concent 33, Red Cell Distribution Width 21.3H, Platelet Count 78L, Mean Platelet Volume 10.3, Neutrophils (%) (Auto) 74, Lymphocytes (%) (Auto) 18 , Monocytes (%) (Auto) 6, Eosinophils (%) (Auto) 2, Basophils (%) (Auto) 0, Neutrophils # (Auto) 7.2, Lymphocytes # (Auto) 1.8, Monocytes # (Auto) 0.6, Eosinophils # (Auto) 0.2, Basophils # (Auto) 0.0, Sodium Level 133L, Potassium Level 3.4L, Chloride Level 106, Carbon Dioxide Level 18L, Anion Gap 9, Blood Urea Nitrogen 15, Creatinine 0.97, Estimat Glomerular Filtration Rate 56, BUN/ Creatinine Ratio 15, Glucose Level 126H, Calcium Level 8.3L, Corrected Calcium 9.7, Phosphorus Level 1.2L, Magnesium Level 2.0, Total Bilirubin 0.3, Aspartate Amino Transf (AST/SGOT) 35H, Alanine Aminotransferase (ALT/SGPT) 17, Alkaline Phosphatase 146H, Total Protein 5.2L, Albumin 2.3L 12/16/17 07:30: Microbiology 12/13/17 Blood Culture - Preliminary, Resulted No growth 12/14/17 MRSA Screen - Final, Complete 12/13/17 Urine Culture - Preliminary, Resulted Staphylococcus epidermidis Aerococcus urinae Assessment/Plan Assessment/Plan Assess & Plan/Chief Complaint Sepsis better. Pulmonary mass. Lytic lesions. Patient does not want anything down. Patient wants to go to hospice. . 12/16/17. Patient does not want anything down. Patient wants to go back to residential that she was that last. Sepsis. Metastatic cancer lytic bone. Lung tumor. Get social services technician involved and try to do what patient wants Clinical Quality Measures Admission Status Admission Dx Septic shock. Altered mental status. UTI. Hypothermia. Acute renal failure. Hypomagnesemia. Anemia. Diabetes DVT/VTE Risk/Contraindication: Risk Factor Score Per Nursin RFS Level Per Nursing on Admit: 3=High Contraindications-Mechi: Other *list below* MIKALA DELVALLE DO Dec 16, 2017 07:42
--- NOTE | 2017-12-16 07:55 | Cardiology Progress Note ---
Subjective Date Seen by Provider: Dec 16, 2017 Time Seen by Provider: 07:52 Subjective/Events-last exam Patient is in bed, had mild chest pain, changed her mind about Hospice yesterday , possible returning to [place] today Review of Systems General: No Chills, No Night Sweats, No Fatigue, No Malaise, No Appetite, No Other HEENT: No Head Aches, No Visual Changes, No Eye Pain, No Ear Pain, No Dysphasia , No Sinus Congestion, No Post Nasal Drip, No Sore Throat, No Other Pulmonary: No Dyspnea, No Cough, No Pleuritic Chest Pain, No Other Cardiovascular: No: Chest Pain, Palpitations, Orthopnea, Paroxysmal Noc. Dyspnea, Edema, Lt Headedness, Other Focused Exam Lactate Level 12/13/17 18:44: Lactic Acid Level 0.87 12/14/17 03:20: Lactic Acid Level 1.03 12/16/17 07:30: Lactic Acid Level Laboratory Tests Test 12/16/17 07:30 Objective-Cardiology Exam Last Set of Vital Signs Vital Signs 12/13/17 12/16/17 16:50 04:18 Temp 98.8 Pulse 93 Resp 18 B/P (MAP) 106/57 (73) Pulse Ox 96 O2 Delivery Room Air O2 Flow Rate 2.00 Capillary Refill : Less Than 3 Seconds I&O Intake and Output 12/16/17 00:00 Intake Total 870 ml Output Total 1800 ml Balance -930 ml Intake Oral 670 ml IV Total 200 ml Output Urine Total 1800 ml General: Alert, Oriented X3, Cooperative, Mild Distress HEENT: Atraumatic, PERRLA Neck: Supple, No JVD, No Thyromegaly Lungs: Normal Air Movement, Other (bilateral rhonchi) Heart: Regular Rate, Normal S1, Normal S2, No Murmurs Abdomen: Normal Bowel Sounds, Soft, No Tenderness, No Hepatosplenomegaly, No Masses Extremities: Other (bilateral BKA) Skin: No Rashes, No Breakdown, No Significant Lesion Psych/Mental Status: Other (anxious) Results Lab Laboratory Tests 12/16/17 06:10 A/P-Cardiology Admission Diagnosis Sepsis Supraventricular tachycardia Hypotensive shock Coronary artery disease Assessment/Plan Status post Acute change in mental status, had a similar event in September 2017, better at this time. Managed by primary care team Lung mass with metastatic lesions, lytic lesions, probably malignant, refusing bronchoscopy, not sure if she wants Hospice, possible transfer to [place] today Supraventricular tachycardia, most probably sinus tach secondary to sepsis. Better at this time. Continue to monitor History of musculoskeletal she is pain, pleuritic chest pain and history of compression fractures. Questionable pulmonary consolidation, receiving antibiotics. Managed by primary care team. Cardiac catheterization done in September 2017 showing mild coronary artery disease nonobstructive disease. Continue to monitor Malignant hypertension, better at this time. Continue to monitor Pulmonary nodule, infiltrate versus neoplasm, questionable metastases on bone scan, managed by Dr. Alfred Compression fracture, had an MRI, managed by medical team. CT of the head was negative in the previous admission. 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 Followed and managed by primary care physician History of noncompliance with medications. Clinical Quality Measures DVT/VTE Risk/Contraindication: Risk Factor Score Per Nursin RFS Level Per Nursing on Admit: 3=High Contraindications-Mechi: Other *list below* MEGAN KENDRICK MD Dec 16, 2017 07:55
[2017-12-16] MEDS: LINEZOLID (ZYVOX) 600 MG TAB PO SCH (08:19)
--- NOTE | 2017-12-16 08:33 | Diagnostic Imaging Report ---
CLINICAL INDICATION: Patient with septic shock and UTI. EXAM: Portable chest x-ray upright view. COMPARISON: Portable chest x-ray dated 12/15/2017. FINDINGS: There is slight decreased size but increased density of the small area of consolidation in left perihilar/mid lung field. There is slight improved aeration of both lung bases. There is no pleural effusion or pneumothorax. Pulmonary vasculature and cardiac silhouette are within normal limits. The remainder of this exam shows no significant interval change compared to the prior study of comparison. IMPRESSION: 1: There is slight decreased size with increased consolidation of the infiltrate in the left perihilar/mid lung field. 2: Slight improved aeration of both lung bases with minimal bibasilar atelectasis. Dictated by: Dictated on workstation # [id number]
--- NOTE | 2017-12-19 08:09 | Discharge Summary ---
Diagnosis/Chief Complaint Date of Admission Dec 13, 2017 at 18:51 Date of Discharge Dec 16, 2017 at 10:45 Discharge Time: 08:05 Discharge Diagnosis Septic shock. Altered mental status. UTI. Hypothermia. Hypomagnesemia. Anemia. Diabetes. Supraventricular tachycardia. Acute renal failure. Pulmonary mass. Lipid lesions. Pneumonia. Reason Hospital Visit Patient seen in office yesterday. Patient unable to give a good history. Temperature low. Hypertension. Patient not answering questions well. Patient lethargic. Patient sent out to the emergency room Patient has bilateral amputation. Patient this morning appears lethargic and unable to give a history and mumbling. Patient has elevated lactic acid. UTI. Patient's septic and admitted to ICU. Discharge Summary Consultations Cardiology. Pulmonology. Discharge Physical Examination Allergies: Coded Allergies: Iodinated Contrast- Oral and IV Dye (Verified Allergy, Intermediate, SWELLING HANDS AND FEET, 01/06/16) Penicillins (Verified Allergy, Mild, Pt has received Ceftriaxone & Cefazolin in the past, 10/07/17) codeine (Verified Allergy, Mild, Pt has taken Percocet w/o issue, 08/09/17) ibuprofen (Verified Allergy, Mild, 01/06/16) propoxyphene (Verified Allergy, Mild, 01/06/16) Sulfa (Sulfonamide Antibiotics) (Unverified Allergy, Unknown, 11/25/16) hydrocodone (Verified Adverse Reaction, Intermediate, NAUSEA, 01/06/16) per pt Vitals & I&Os Vital Signs Date Time Temp Pulse Resp B/P (MAP) Pulse Ox O2 Delivery O2 Flow Rate FiO2 12/16/17 11:15 12/16/17 08:00 Room Air 12/16/17 07:00 79 12/16/17 04:18 98.8 18 96 12/14/17 08:24 Hospital Course Patient in hospital improved. Patient in hospital did not want to do anything. Patient does not want to go after the lytic lesions or pulmonary mass. Patient just wants to go back to long term Labs (last 24 hrs) Laboratory Tests 12/13/17 16:15: White Blood Count 16.9H, Red Blood Count 4.79, Hemoglobin 12.6, Hematocrit 39, Mean Corpuscular Volume 81, Mean Corpuscular Hemoglobin 26, Mean Corpuscular Hemoglobin Concent 32, Red Cell Distribution Width 21.7H, Platelet Count 186, Mean Platelet Volume 10.3, Neutrophils (%) (Auto) 71, Lymphocytes (%) (Auto) 22 , Monocytes (%) (Auto) 6, Eosinophils (%) (Auto) 1, Basophils (%) (Auto) 0, Neutrophils # (Auto) 12.1H, Lymphocytes # (Auto) 3.8, Monocytes # (Auto) 0.9, Eosinophils # (Auto) 0.1, Basophils # (Auto) 0.1, Neutrophils % (Manual) 57, Lymphocytes % (Manual) 27, Monocytes % (Manual) 7, Eosinophils % (Manual) 0, Basophils % (Manual) 1, Band Neutrophils 8, Blood Morphology Comment NORMAL, Prothrombin Time 14.7, INR Comment 1.1, Activated Partial Thromboplast Time 26, Sodium Level 137, Potassium Level 5.1H, Chloride Level 103, Carbon Dioxide Level 21, Anion Gap 13, Blood Urea Nitrogen 40H, Creatinine 1.90H, Estimat Glomerular Filtration Rate 26, BUN/Creatinine Ratio 21, Glucose Level 68L, Lactic Acid Level 3.38*H, Calcium Level 14.7*H, Corrected Calcium 15.1H, Total Bilirubin 0.4, Aspartate Amino Transf (AST/SGOT) 60H, Alanine Aminotransferase ( ALT/SGPT) 19, Alkaline Phosphatase 249H, Total Protein 8.2, Albumin 3.5, Lipase 568H 12/13/17 16:30: Urine Color YELLOW, Urine Clarity VERY CLOUDYH, Urine pH 6.5, Urine Specific [place] 1.010L, Urine Protein 3+H, Urine Glucose (UA) NEGATIVE, Urine Ketones NEGATIVE, Urine Nitrite NEGATIVE, Urine Bilirubin NEGATIVE, Urine Urobilinogen NORMAL, Urine Leukocyte Esterase 3+H, Urine RBC (Auto) 4+H, Urine RBC 10-25H, Urine WBC >100H, Urine Crystals NONE, Urine Bacteria FEWH, Urine Casts NONE, Urine Mucus NEGATIVE, Urine Culture Indicated YES 12/13/17 18:44: Lactic Acid Level 0.87, Calcium Level 11.8H 12/14/17 03:15: White Blood Count 13.5H, Red Blood Count 3.55L, Hemoglobin 9.6#L, Hematocrit 29L , Mean Corpuscular Volume 82, Mean Corpuscular Hemoglobin 27, Mean Corpuscular Hemoglobin Concent 33, Red Cell Distribution Width 21.1H, Platelet Count 138, Mean Platelet Volume 10.1, Neutrophils (%) (Auto) 74, Lymphocytes (%) (Auto) 19 , Monocytes (%) (Auto) 6, Eosinophils (%) (Auto) 1, Basophils (%) (Auto) 0, Neutrophils # (Auto) 10.1H, Lymphocytes # (Auto) 2.6, Monocytes # (Auto) 0.8, Eosinophils # (Auto) 0.1, Basophils # (Auto) 0.0, Prothrombin Time 17.0H, INR Comment 1.4, Activated Partial Thromboplast Time 32, Sodium Level 137, Potassium Level 4.6, Chloride Level 111H, Carbon Dioxide Level 15L, Anion Gap 11 , Blood Urea Nitrogen 35H, Creatinine 1.75H, Estimat Glomerular Filtration Rate 28, BUN/Creatinine Ratio 20, Glucose Level 61L, Calcium Level 11.7H, Corrected Calcium 12.8H, Total Bilirubin 0.3, Aspartate Amino Transf (AST/SGOT) 48H, Alanine Aminotransferase (ALT/SGPT) 17, Alkaline Phosphatase 169H, Total Protein 5.9L, Albumin 2.6L, Phosphorus Level 3.5, Magnesium Level 1.7L, Smear Scan YES 12/14/17 03:20: Lactic Acid Level 1.03 12/14/17 04:49: Glucometer 76 12/14/17 09:30: Troponin I < 0.30 12/14/17 11:06: Glucometer 184H 12/14/17 13:50: Blood Gas Puncture Site RIGHT RADIAL, Blood Gas Patient Temperature 100.8, Arterial Blood pH 7.41, Arterial Blood Partial Pressure CO2 31L, Arterial Blood Partial Pressure O2 87, Arterial Blood HCO3 19L, Arterial Blood Total CO2 19.7L , Arterial Blood Oxygen Saturation 97, Arterial Blood Base Excess -4.8L, Paul Test POSITIVE, Blood Gas Ventilator Setting NO, Blood Gas Inspired Oxygen N/A 12/14/17 17:50: Glucometer 119H 12/14/17 23:29: Glucometer 162H 12/15/17 03:54: Glucometer 146H 12/15/17 03:58: White Blood Count 10.1, Red Blood Count 3.17L, Hemoglobin 8.2L, Hematocrit 26L, Mean Corpuscular Volume 82, Mean Corpuscular Hemoglobin 26, Mean Corpuscular Hemoglobin Concent 31L, Red Cell Distribution Width 21.2H, Platelet Count 88L, Mean Platelet Volume 9.5, Neutrophils (%) (Auto) 74, Lymphocytes (%) (Auto) 17, Monocytes (%) (Auto) 6, Eosinophils (%) (Auto) 2, Basophils (%) (Auto) 0, Neutrophils # (Auto) 7.5, Lymphocytes # (Auto) 1.7, Monocytes # (Auto) 0.7, Eosinophils # (Auto) 0.2, Basophils # (Auto) 0.0, Sodium Level 134L, Potassium Level 3.8, Chloride Level 108H, Carbon Dioxide Level 20L, Anion Gap 6, Blood Urea Nitrogen 22H, Creatinine 1.37H, Estimat Glomerular Filtration Rate 38, BUN/ Creatinine Ratio 16, Glucose Level 141H, Calcium Level 9.5, Corrected Calcium 10.9H, Phosphorus Level 2.3, Magnesium Level 1.7L, Total Bilirubin 0.3, Aspartate Amino Transf (AST/SGOT) 40H, Alanine Aminotransferase (ALT/SGPT) 13, Alkaline Phosphatase 142H, Total Protein 5.1L, Albumin 2.2L 12/15/17 11:23: Glucometer 221H 12/15/17 17:10: Glucometer 267H 12/15/17 20:08: Glucometer 145H 12/16/17 05:20: Glucometer 130H 12/16/17 06:10: White Blood Count 9.8, Red Blood Count 3.24L, Hemoglobin 8.6L, Hematocrit 26L, Mean Corpuscular Volume 81, Mean Corpuscular Hemoglobin 27, Mean Corpuscular Hemoglobin Concent 33, Red Cell Distribution Width 21.3H, Platelet Count 78L, Mean Platelet Volume 10.3, Neutrophils (%) (Auto) 74, Lymphocytes (%) (Auto) 18 , Monocytes (%) (Auto) 6, Eosinophils (%) (Auto) 2, Basophils (%) (Auto) 0, Neutrophils # (Auto) 7.2, Lymphocytes # (Auto) 1.8, Monocytes # (Auto) 0.6, Eosinophils # (Auto) 0.2, Basophils # (Auto) 0.0, Sodium Level 133L, Potassium Level 3.4L, Chloride Level 106, Carbon Dioxide Level 18L, Anion Gap 9, Blood Urea Nitrogen 15, Creatinine 0.97, Estimat Glomerular Filtration Rate 56, BUN/ Creatinine Ratio 15, Glucose Level 126H, Calcium Level 8.3L, Corrected Calcium 9.7, Phosphorus Level 1.2L, Magnesium Level 2.0, Total Bilirubin 0.3, Aspartate Amino Transf (AST/SGOT) 35H, Alanine Aminotransferase (ALT/SGPT) 17, Alkaline Phosphatase 146H, Total Protein 5.2L, Albumin 2.3L 12/16/17 07:30: Lactic Acid Level 0.93 Microbiology 12/13/17 Blood Culture - Final, Complete No growth 12/14/17 MRSA Screen - Final, Complete 12/13/17 Urine Culture - Final, Complete Staphylococcus epidermidis Aerococcus urinae See Comments Laboratory Tests 12/13/17 16:15 12/14/17 03:15 12/15/17 03:58 12/16/17 06:10 Pending Labs Microbiology Date/Time Source Procedure Growth Status 12/13/17 17:00 Peripheral Rt Hand Blood Culture - Final No growth Complete 12/13/17 16:15 Peripheral Rt Ac Blood Culture - Final No growth Complete 12/14/17 09:00 Nasal MRSA Screen - Final Complete 12/13/17 16:30 Urine Straight Cath, In/Out Urine Culture - Final Staphylococcus epidermidis Aerococcus urinae See Comments Complete Laboratory Tests 12/13/17 16:15: White Blood Count 16.9, Red Blood Count 4.79, Hemoglobin 12.6, Hematocrit 39, Mean Corpuscular Volume 81, Mean Corpuscular Hemoglobin 26, Mean Corpuscular Hemoglobin Concent 32, Red Cell Distribution Width 21.7, Platelet Count 186, Mean Platelet Volume 10.3, Neutrophils (%) (Auto) 71, Lymphocytes (%) (Auto) 22 , Monocytes (%) (Auto) 6, Eosinophils (%) (Auto) 1, Basophils (%) (Auto) 0, Neutrophils # (Auto) 12.1, Lymphocytes # (Auto) 3.8, Monocytes # (Auto) 0.9, Eosinophils # (Auto) 0.1, Basophils # (Auto) 0.1, Neutrophils % (Manual) 57, Lymphocytes % (Manual) 27, Monocytes % (Manual) 7, Eosinophils % (Manual) 0, Basophils % (Manual) 1, Band Neutrophils 8, Blood Morphology Comment NORMAL, Prothrombin Time 14.7, INR Comment 1.1, Activated Partial Thromboplast Time 26, Sodium Level 137, Potassium Level 5.1, Chloride Level 103, Carbon Dioxide Level 21, Anion Gap 13, Blood Urea Nitrogen 40, Creatinine 1.90, Estimat Glomerular Filtration Rate 26, BUN/Creatinine Ratio 21, Glucose Level 68, Lactic Acid Level 3.38, Calcium Level 14.7, Corrected Calcium 15.1, Total Bilirubin 0.4, Aspartate Amino Transf (AST/SGOT) 60, Alanine Aminotransferase (ALT/SGPT) 19, Alkaline Phosphatase 249, Total Protein 8.2, Albumin 3.5, Lipase 568 12/13/17 16:30: Urine Color YELLOW, Urine Clarity VERY CLOUDY, Urine pH 6.5, Urine Specific [place] 1.010, Urine Protein 3+, Urine Glucose (UA) NEGATIVE, Urine Ketones NEGATIVE, Urine Nitrite NEGATIVE, Urine Bilirubin NEGATIVE, Urine Urobilinogen NORMAL, Urine Leukocyte Esterase 3+, Urine RBC (Auto) 4+, Urine RBC 10-25, Urine WBC >100, Urine Crystals NONE, Urine Bacteria FEW, Urine Casts NONE, Urine Mucus NEGATIVE, Urine Culture Indicated YES 12/13/17 18:44: Lactic Acid Level 0.87, Calcium Level 11.8 12/14/17 03:15: White Blood Count 13.5, Red Blood Count 3.55, Hemoglobin 9.6, Hematocrit 29, Mean Corpuscular Volume 82, Mean Corpuscular Hemoglobin 27, Mean Corpuscular Hemoglobin Concent 33, Red Cell Distribution Width 21.1, Platelet Count 138, Mean Platelet Volume 10.1, Neutrophils (%) (Auto) 74, Lymphocytes (%) (Auto) 19 , Monocytes (%) (Auto) 6, Eosinophils (%) (Auto) 1, Basophils (%) (Auto) 0, Neutrophils # (Auto) 10.1, Lymphocytes # (Auto) 2.6, Monocytes # (Auto) 0.8, Eosinophils # (Auto) 0.1, Basophils # (Auto) 0.0, Prothrombin Time 17.0, INR Comment 1.4, Activated Partial Thromboplast Time 32, Sodium Level 137, Potassium Level 4.6, Chloride Level 111, Carbon Dioxide Level 15, Anion Gap 11, Blood Urea Nitrogen 35, Creatinine 1.75, Estimat Glomerular Filtration Rate 28, BUN/Creatinine Ratio 20, Glucose Level 61, Calcium Level 11.7, Corrected Calcium 12.8, Total Bilirubin 0.3, Aspartate Amino Transf (AST/SGOT) 48, Alanine Aminotransferase (ALT/SGPT) 17, Alkaline Phosphatase 169, Total Protein 5.9, Albumin 2.6, Phosphorus Level 3.5, Magnesium Level 1.7, Smear Scan YES 12/14/17 03:20: Lactic Acid Level 1.03 12/14/17 04:49: Glucometer 76 12/14/17 09:30: Troponin I < 0.30 12/14/17 11:06: Glucometer 184 12/14/17 13:50: Blood Gas Puncture Site RIGHT RADIAL, Blood Gas Patient Temperature 100.8, Arterial Blood pH 7.41, Arterial Blood Partial Pressure CO2 31, Arterial Blood Partial Pressure O2 87, Arterial Blood HCO3 19, Arterial Blood Total CO2 19.7, Arterial Blood Oxygen Saturation 97, Arterial Blood Base Excess -4.8, Paul Test POSITIVE, Blood Gas Ventilator Setting NO, Blood Gas Inspired Oxygen N/A 12/14/17 17:50: Glucometer 119 12/14/17 23:29: Glucometer 162 12/15/17 03:54: Glucometer 146 12/15/17 03:58: White Blood Count 10.1, Red Blood Count 3.17, Hemoglobin 8.2, Hematocrit 26, Mean Corpuscular Volume 82, Mean Corpuscular Hemoglobin 26, Mean Corpuscular Hemoglobin Concent 31, Red Cell Distribution Width 21.2, Platelet Count 88, Mean Platelet Volume 9.5, Neutrophils (%) (Auto) 74, Lymphocytes (%) (Auto) 17, Monocytes (%) (Auto) 6, Eosinophils (%) (Auto) 2, Basophils (%) (Auto) 0, Neutrophils # (Auto) 7.5, Lymphocytes # (Auto) 1.7, Monocytes # (Auto) 0.7, Eosinophils # (Auto) 0.2, Basophils # (Auto) 0.0, Sodium Level 134, Potassium Level 3.8, Chloride Level 108, Carbon Dioxide Level 20, Anion Gap 6, Blood Urea Nitrogen 22, Creatinine 1.37, Estimat Glomerular Filtration Rate 38, BUN/ Creatinine Ratio 16, Glucose Level 141, Calcium Level 9.5, Corrected Calcium 10.9, Phosphorus Level 2.3, Magnesium Level 1.7, Total Bilirubin 0.3, Aspartate Amino Transf (AST/SGOT) 40, Alanine Aminotransferase (ALT/SGPT) 13, Alkaline Phosphatase 142, Total Protein 5.1, Albumin 2.2 12/15/17 11:23: Glucometer 221 12/15/17 17:10: Glucometer 267 12/15/17 20:08: Glucometer 145 12/16/17 05:20: Glucometer 130 12/16/17 06:10: White Blood Count 9.8, Red Blood Count 3.24, Hemoglobin 8.6, Hematocrit 26, Mean Corpuscular Volume 81, Mean Corpuscular Hemoglobin 27, Mean Corpuscular Hemoglobin Concent 33, Red Cell Distribution Width 21.3, Platelet Count 78, Mean Platelet Volume 10.3, Neutrophils (%) (Auto) 74, Lymphocytes (%) (Auto) 18 , Monocytes (%) (Auto) 6, Eosinophils (%) (Auto) 2, Basophils (%) (Auto) 0, Neutrophils # (Auto) 7.2, Lymphocytes # (Auto) 1.8, Monocytes # (Auto) 0.6, Eosinophils # (Auto) 0.2, Basophils # (Auto) 0.0, Sodium Level 133, Potassium Level 3.4, Chloride Level 106, Carbon Dioxide Level 18, Anion Gap 9, Blood Urea Nitrogen 15, Creatinine 0.97, Estimat Glomerular Filtration Rate 56, BUN/ Creatinine Ratio 15, Glucose Level 126, Calcium Level 8.3, Corrected Calcium 9.7 , Phosphorus Level 1.2, Magnesium Level 2.0, Total Bilirubin 0.3, Aspartate Amino Transf (AST/SGOT) 35, Alanine Aminotransferase (ALT/SGPT) 17, Alkaline Phosphatase 146, Total Protein 5.2, Albumin 2.3 12/16/17 07:30: Lactic Acid Level 0.93 Discharge Home Medications: Active Scripts Active Reported Miconazole 3 (Miconazole Nitrate) 24 Gm Cmb.pf.crm VG BID PRN Lisinopril 40 Mg Tablet 40 Mg PO DAILY Amlodipine Besylate 10 Mg Tablet 10 Mg PO DAILY Metoprolol Tartrate 50 Mg Tablet 50 Mg PO BID Protonix (Pantoprazole Sodium) 40 Mg Tablet.dr 40 Mg PO DAILY Zofran Odt (Ondansetron) 4 Mg Tab.rapdis 4 Mg SL Q6H PRN Nicotine Patch (Nicotine) 1 Each Patch.td24 14 Mg TD DAILY Levemir (Insulin Determir) 1,000 Units/10 Ml Soln 12 Units SQ BID Vitamin D2 (Ergocalciferol (Vitamin D2)) 50,000 Unit Capsule 50,000 Unit PO WEEK Buspirone HCl 10 Mg Tablet 10 Mg PO BID Starr-Lanta Liquid (Mag Hydrox/Al Hydrox/Simeth) 355 Ml Oral.susp 30 Ml PO Q4H PRN Tylenol (Acetaminophen) 325 Mg Tablet 650 Mg PO Q4H PRN Ciprofloxacin HCl 500 Mg Tablet 500 Mg PO BID 6 Days 6 DAY THERAPY STOP DATE 12-19-17 Fluconazole 100 Mg Tablet 100 Mg PO HS 4 Days 4 DAY THERAPY STOP DATE 12-17-17 Instructions to patient/family Please see electronic discharge instructions given to patient. Clinical Quality Measures DVT/VTE Risk/Contraindication: Risk Factor Score Per Nursin RFS Level Per Nursing on Admit: 3=High Contraindications-Mechi: Other *list below* MIKALA DELVALLE DO Dec 19, 2017 08:09
== END 2017-12-16 10:45 | DRG 871 ==
LOC: ER 15:42 → ICU 18:51 → 4TH 12-15 11:50
PROVIDERS: ADMIT Family Medicine; ATTEND Family Medicine
PROC: 02HV33Z Insertion of Infusion Device into Superior Vena Cava, Percutaneous Approach (ICD-10-PCS; principal; 2017-12-13)
DX: A41.9 Sepsis, unspecified organism (principal); R65.21 Severe sepsis with septic shock; N39.0 Urinary tract infection, site not specified; N17.9 Acute kidney failure, unspecified; J18.9 Pneumonia, unspecified organism; I47.1 Supraventricular tachycardia; E83.52 Hypercalcemia; R68.0 Hypothermia, not associated with low environmental temperature; Z66 Do not resuscitate; E83.42 Hypomagnesemia; D64.9 Anemia, unspecified; R91.8 Other nonspecific abnormal finding of lung field; M89.9 Disorder of bone, unspecified; E11.9 Type 2 diabetes mellitus without complications; F17.210 Nicotine dependence, cigarettes, uncomplicated; J44.9 Chronic obstructive pulmonary disease, unspecified; I10 Essential (primary) hypertension; K21.9 Gastro-esophageal reflux disease without esophagitis; M81.0 Age-related osteoporosis without current pathological fracture; F41.9 Anxiety disorder, unspecified; F32.9 Major depressive disorder, single episode, unspecified; I25.10 Atherosclerotic heart disease of native coronary artery without angina pectoris; Z91.14 Patient's other noncompliance with medication regimen; Z79.4 Long term (current) use of insulin; Z89.511 Acquired absence of right leg below knee; Z89.512 Acquired absence of left leg below knee
CPT/HCPCS: 36415; 51702; 71045; 71250; 80053; 81000; 82310; 82805; 82962; 83605; 83690; 83735; 84100; 84484; 85007; 85025; 85027; 85610; 85730; 87040; 87077; 87081; 87088; 87186; 93005; 93306; 94640; 94760; 96361; 96365; 96375